=== PATIENT | male | born 1935 | race Caucasian/White ===

== ENCOUNTER 2019-05-24 19:45 | Observation (INO) | payer MEDICARE, BC, SELFPAY ==
--- NOTE | ~2019-05-24 | CT_ITS ---
EXAMINATION: CT abdomen pelvis wo con DATE: 05/24/2019 23:30 INDICATION: Generalized abdominal pain. TECHNIQUE: Computed tomography (CT) of the abdomen and pelvis was performed without intravenous contr ast. The dose-length product was 694.29 mGy-cm. Automated exposure control and iterative reconstructi on technique were employed. COMPARISON: CT dated 08/27/2018 FINDINGS: There is chronic right lower lobe atelectasis/scarring. Heart size normal. No significant p leural or pericardial effusion. Status post cholecystectomy. The spleen, pancreas, adrenal glands and liver are unremarkable for nonc ontrast CT. Status post cholecystectomy. There is a small 9 mm hyperdense cyst of the right kidney, i nferior pole. Small fat-containing umbilical hernia. Normal appendix. Nonobstructive bowel gas patter n. Bladder is unremarkable. No abnormal pelvic masses or fluid collections. Mild left ureterectasis, nonspecific. No obstructing stone or mass. Mild lumbar spondylosis. There is a vascular stent extendi ng from the distal abdominal aorta into the right common iliac artery and external iliac artery. Stab le appearance to solitary lead in the right pelvis without change. IMPRESSION: 1. No acute abdominal abnormality. No findings to account for patient's symptoms. Reviewed, dictated and finalized at location A. NING INSTRUCTOR IMPRESSION: 1. No acute abdominal abnormality. No findings to account for patient's symptom s.
--- NOTE | ~2019-05-24 | XR_ITS ---
XR chest 2V 05/24/2019 20:27 Indication: Low chest pain, shortness of breath and hypertension Procedure: 2 view chest Comparison: Comparison to multiple prior studies sequentially, with oldest reviewed study dated 06/09. Findings: Status post median sternotomy for CABG. Calcified granuloma left apex. Chronic scarring of the right lung base. No acute focal pneumonia, edema or effusion. No acute osseous abnormality. Impression: 1: No acute cardiopulmonary disease. Reviewed, dictated and finalized at location A. NICAL PROPOSAL WRITER Impression: 1: No acute cardiopulmonary disease.
[2019-05-24 20:00] VITALS: BP 154/75; PULSE 74; RESP 14; TEMP 36.7; O2SAT 97
--- NOTE | 2019-05-24 20:09 | ECG_ITS ---
Measurements Intervals [place] Rate: 74 P: 1 IA: 197 QRS: -29 QRSD: 138 T: 104 QT: 400 QTc: 446 Interpretive Statements SINUS RHYTHM VENTRICULAR PREMATURE COMPLEX LEFT BUNDLE BRANCH BLOCK LEFT VENTRICULAR HYPERTROPHY AND ST-T CHANGE ABNORMAL ECG Electronically Signed On 05-25-2019 7:13:31 SWATCH FOLDER by Herman Jaimes D.O.
[2019-05-24 20:32] LABS: Basophils Absolute Auto 0.02 K/mm3 (0.00-0.10); Basophils Percent Auto 0.3 % (0.0-1.0); Eosinophils Absolute Auto 0.04 K/mm3 (0.02-0.50); Eosinophils Percent Auto 0.6 % (1.0-6.0); Hematocrit 39.4 % (37.0-46.0); Hemoglobin 13.6 g/dL (12.4-15.3); Immature Granulocyte Absolute 0.04 K/mm3 (0.00-0.00); Immature Granulocyte Percent A 0.6 % (0.0-0.0); Lymphocytes Absolute Auto 1.65 K/mm3 (1.10-4.50); Lymphocytes Percent Auto 23.4 % (18.0-42.0); Mean Corpuscular HGB Conc 34.5 g/dL (32.0-36.0); Mean Corpuscular Hemoglobin 30.1 pg (27.0-31.0); Mean Corpuscular Volume 87.2 fL (78.0-102.0); Mean Platelet Volume 11.5 fl (8.7-11.0); Monocytes Absolute Auto 0.69 K/mm3 (0.10-0.90); Monocytes Percent Auto 9.8 % (2.0-11.0); Neutrophils Absolute Auto 4.6 K/mm3 (1.7-7.2); Neutrophils Percent Auto 65.3 % (50.0-70.0); Platelet Count Result 153 K/mm3 (150-420); Red Blood Count 4.52 M/mm3 (4.70-6.10); Red Cell Distribution Width 13.6 % (11.6-14.4); White Blood Count 7.1 K/mm3 (4.8-10.8)
[2019-05-24 20:45] LABS: Partial Thromboplastin Time 24.7 SEC (22.3-31.6); Prothrombin Time 10.7 Seconds (9.64-11.0)
[2019-05-24 20:49] LABS: Anion Gap 10.9 mmol/L (7-16); Blood Urea Nitrogen 29 mg/dL (7-18); Calcium 8.9 mg/dL (8.5-10.1); Carbon Dioxide 31 mmol/L (21-32); Chloride 100 mmol/L (98-108); Estimated CRCL calculation 38 ml/min; Estimated Glomerular Filt Rate 44; Glucose 135 mg/dL (70-99); Osmolality Calculated 293 mOsm/kg (285-295); Potassium 3.9 mmol/L (3.5-5.1); Sodium 138 mmol/L (136-145)
[2019-05-24 20:50] LABS: Troponin I < 0.02 ng/mL (0.00-0.056)
[2019-05-24 20:51] LABS: Amylase 54 U/L (25-115)
[2019-05-24 20:52] LABS: Lipase 151 U/L (73-393)
[2019-05-24 21:24] LABS: BNP 79.6 pg/mL (0-100)
--- NOTE | 2019-05-24 21:27 | ED.GENADULT ---
HPI - General Adult General Chief complaint: Chest Pain Stated complaint: sob, high blood pressure Time Seen by Provider: 05/24/19 20:20 Source: patient Mode of arrival: ambulatory Limitations: no limitations History of Present Illness HPI narrative: Celestino is a very pleasant 84-year-old male patient. He presents ambulatory to the emergency room. He states that he has a feeling of some pressure in the lower ribcage areas bilaterally. He has some epigastric discomfort also. This started at around 3:00 p.m. this afternoon. He also has some mild shortness of breath for 2 or 3 days. No history of cough. No history of fever. He denies any substernal chest pain. There is no arm pain back pain jaw pain. There is no history of arm tingling or numbness. He has history of coronary artery disease. He has had 4 vessel CABG in 1996 at [facility] In [place]. He had 2 stents done at the same hospital in 2018. He has had a right iliofemoral stent. His human services care specialist is Dr. Patel. his family physician used to be but since he left Celestino has not had any other physician. Celestino has had cholecystectomy. there is no history of any nausea or vomiting. No Urinary symptoms Celestino has had pneumonia in the past. at this particular time in the emergency room, Celestino says that he is feeling okay without any significant pain or shortness of breath. He is very pleasant. complaint: bilateral rib pain and epigastric pain Onset (ago): hour(s) ( Since 3:00 p.m.. See HPI narrative) Location: chest ( see HPI narrative) and abdomen ( Epigastric region) Radiation: non-radiation Severity: mild Quality: other ( pressure over the lateral ribs bilaterally. Use of says that he had similar pain with pneumonia) Pain Consistency: intermittent Relieving factors: other ( spontaneously better) Exacerbating factors: none Associated symptoms: other ( see HPI narrative) Treatments prior to arrival: none Related Data Allergies Allergy/AdvReac Type Severity Reaction Status Date / Time amoxicillin Allergy Intermediate Verified 10/02/16 14:22 prednisone Allergy Intermediate Verified 10/02/16 14:22 Radiographic Dyes/Iodine Allergy Intermediate itching, Uncoded 11/11/16 11:44 weakness of lower limbs Review of Systems Review of Systems: All systems reviewed & are unremarkable except as noted in HPI and below Constitutional: Constitutional: Reports as per HPI, Denies chills, Denies fever(s) and Denies weakness Eyes: Eyes: Reports as per HPI and Denies change in vision ENT: Reports system reviewed and no additional complaints, except as documented, Denies dysphagia, Denies vertigo, Denies dizziness, Denies nasal congestion and Denies sore throat Cardiovascular: Cardiovascular: Reports as per HPI, Reports chest pain, Denies rapid heart rate, Denies radiating jaw, neck or arm pain and Denies slow heart rate Respiratory: Respiratory: Reports as per HPI, Denies cough and Reports dyspnea Comments: see HPI narrative Gastrointestinal: Gastrointestinal: Reports no additional gastrointestinal complaints, Reports abdominal pain, Denies diarrhea, Denies nausea and Denies vomiting Genitourinary: Genitourinary: Reports as per HPI, Denies hematuria and Denies dysuria Musculoskeletal: Musculoskeletal: Reports no additional musculoskeletal complaints and Denies back pain Integumentary/Breasts: Skin/Breast: Reports system reviewed and no additional complaints, except as docu, Denies erythema and Denies rash Neurologic: Reports system reviewed and no additional complaints, except as documented, Denies vertigo, Denies dizziness, Denies syncope, Denies headache(s), Denies focal weakness, Denies numbness and Denies weakness Psychiatric: Psychiatric: Reports no additional psychiatric complaints, Denies anxiety and Denies depression Endocrine: Endocrine: Reports no additional endocrine complaints, Denies polydipsia and Denies polyuria Hematologic/Lymphatic
[2019-05-24 21:42] VITALS: BP 133/73; PULSE 67; RESP 20; O2SAT 95
--- NOTE | 2019-05-24 21:43 | PC.NURSE ---
Resting without change in condition. Awaiting dispo per ER physician.
[2019-05-24 22:23] VITALS: BP 164/88; PULSE 60; RESP 18; O2SAT 97
[2019-05-24 23:01] VITALS: BMI 30.2
--- NOTE | 2019-05-24 23:35 | PC.NURSE ---
Patient transported to x-ray for abdominal CT per w/c..
--- NOTE | 2019-05-24 23:50 | ADMGEN ---
This patient, Celestino Rodriguez, was admitted to 2nd Floor Room 204-2. Patient oriented to hospital policies and general routines including ID bracelet, bed and alarms, visiting hours, pain management, procedures, bathroom and other care routines, personal items, smoking policy, room service/diet, and visiting hours. Valuables list has been completed. Patient returned from x-ray in good spirits, denies chest pain or discomfort, stood to void into urinal with steady gait with no balance loss and returned to bed. Skin pink, warm, and dry with no edema and no signs of distress or pain. VSS. Telemetry: SR with rate 66-76 with occassional uniform PVCs; occassional missed beats per ausculation of apical pulse. Information on how to activate the Rapid Response Team has been discussed. Communication must be directed to patient in clear communication style facing him. He is [place] in both ears and did not bring his hearing aide. Patient/Family are encouraged to report perceived risks to care and to ask questions if they do not understand what they are told or what they should do.
[2019-05-24 23:59] VITALS: BP 161/61; PULSE 76; RESP 16; TEMP 35.8; O2SAT 98
[2019-05-25] VITALS (11 sets, daily range): BP systolic 118–152; BP diastolic 60–69; PULSE 49–79; RESP 16–18; TEMP 36.3–36.5; O2SAT 95–97
[2019-05-25 01:02] LABS: Troponin I < 0.02 ng/mL (0.00-0.056)
--- NOTE | 2019-05-25 02:15 | PC.NURSE ---
Lying in bed sleeping, skin pink, respirations easy/unlabored. No signs of chest pain or shortness of breath. No distress noted.
--- NOTE | 2019-05-25 03:55 | PC.NURSE ---
Awakens easily to name called; skin pink, warm, dry. Denies pain, chest pain or shortness of breath. VSS. No distress noted.
--- NOTE | 2019-05-25 04:55 | PC.NURSE ---
Patient sleeping, No signs of chest pain, shortness of breath, or discomfort. Telemetry: SB with rate: 58-60.
--- NOTE | 2019-05-25 05:23 | PC.NURSE ---
Alert/oriented x 4; Denies chest pain or discomfort. No shortness of breath. Skin pink, warm and dry. No distress noted.
[2019-05-25 07:04] LABS: Hematocrit 39.1 % (37.0-46.0); Hemoglobin 13.6 g/dL (12.4-15.3); Mean Corpuscular HGB Conc 34.8 g/dL (32.0-36.0); Mean Corpuscular Hemoglobin 29.8 pg (27.0-31.0); Mean Corpuscular Volume 85.7 fL (78.0-102.0); Mean Platelet Volume 11.4 fl (8.7-11.0); Platelet Count Result 153 K/mm3 (150-420); Red Blood Count 4.56 M/mm3 (4.70-6.10); Red Cell Distribution Width 13.4 % (11.6-14.4); White Blood Count 6.6 K/mm3 (4.8-10.8)
[2019-05-25 07:28] LABS: Alanine Aminotransferase 16 U/L (16-63); Albumin Level 3.4 g/dL (3.4-5.0); Alkaline Phosphatase 45 U/L (46-116); Amylase 46 U/L (25-115); Aspartate Amino Transferase 16 U/L (15-37); Bilirubin,Total 0.4 mg/dL (0.00-1.00); Blood Urea Nitrogen 26 mg/dL (7-18); Calcium 9.2 mg/dL (8.5-10.1); Carbon Dioxide 31 mmol/L (21-32); Chloride 105 mmol/L (98-108); Estimated CRCL calculation 53 ml/min; Estimated Glomerular Filt Rate > 60; Glucose 94 mg/dL (70-99); Osmolality Calculated 300 mOsm/kg (285-295); Sodium 143 mmol/L (136-145); Total Protein 6.5 g/dL (6.4-8.2)
[2019-05-25 07:30] LABS: Troponin I < 0.02 ng/mL (0.00-0.056)
[2019-05-25 07:31] LABS: Lipase 132 U/L (73-393)
[2019-05-25] MEDS: METOPROLOL SUCCINATE EXT REL 50 MG TABCR PO (08:33)
[2019-05-25] MEDS: TAMSULOSIN HCL 0.4 MG CAPSULE 0.8 MG PO (08:33)
[2019-05-25] MEDS: CLOPIDOGREL BISULFATE 75 MG TABLET PO (08:34)
[2019-05-25] MEDS: ROSUVASTATIN 10 MG TABLET 40 MG PO (08:34)
[2019-05-25] MEDS: ISOSORBIDE MONONITRATE 60 MG TAB.ER.24H PO (08:34)
[2019-05-25] MEDS: AMLODIPINE BESYLATE 2.5 MG TABLET PO (08:34)
[2019-05-25] MEDS: MIRTAZAPINE 15 MG TABLET PO (08:34)
[2019-05-25] MEDS: MONTELUKAST SODIUM 10 MG TABLET PO (08:34)
[2019-05-25] MEDS: GABAPENTIN 100 MG CAPSULE PO ×2 (08:34→12:01)
[2019-05-25] MEDS: CHLORTHALIDONE 25 MG TABLET PO (08:35)
[2019-05-25] MEDS: PANTOPRAZOLE 40 MG TABLET PO (08:40)
--- NOTE | 2019-05-25 10:04 | ECG_ITS ---
Measurements Intervals [place] Rate: 58 P: 0 LA: 213 QRS: 87 QRSD: 133 T: 68 QT: 427 QTc: 420 Interpretive Statements SINUS BRADYCARDIA WITH FIRST DEGREE AV BLOCK VENTRICULAR PREMATURE COMPLEX LEFT BUNDLE BRANCH BLOCK ABNORMAL ECG Electronically Signed On 05-25-2019 11:49:58 SANITATION MANAGER by Herman Jaimes D.O.
[2019-05-25] MEDS: SIMETHICONE 80 MG TAB.CHEW PO ×2 (11:07→12:01)
--- NOTE | 2019-05-25 11:20 | PC.NURSE ---
Patient walked x1 around floor with sba and gait belt. Gait steady, pt. showed no SOB. States he is feeling better. Pt. sittingu p at side of bed after walking, call light at side.
[2019-05-25] MEDS: SUCRALFATE SUSP 100 MG/ML 10 ML UDC 1000 MG PO (12:02)
[2019-05-25 13:40] LABS: Appearance Urine Clear (Clear); Bilirubin Urine Negative (Negative); Color Urine Yellow (Yellow); Glucose Urine UA Negative (Negative); Ketones Urine Negative (Negative); Leukocyte Esterase Ur Negative LEU/UL (Negative); Nitrate Urine Negative (Negative); Protein Urine Negative (Negative); Specific Grav Ur <= 1.005 (1.010-1.020); Urobilinogen Urine 0.2 mg/dL (0.2-1.0)
[2019-05-25 13:44] LABS: Add Urine Microscopic? YES; Blood Urine Trace-Intact (Negative); RBC Urine None seen /hpf (0-2); Squamous Epithelial Cell Urine Rare /hpf (Few); WBC Urine None seen /hpf (0-3)
[2019-05-25 13:45] LABS: Bacteria Urine None seen /hpf
--- NOTE | 2019-05-25 15:23 | PM.DS ---
DS: Diagnosis Discharge Diagnosis (1) Colicky epigastric pain: Code(s): R10.13 - Epigastric pain Status: Acute Assessment and Plan: IMPROVED. Stated that he was receiving bi-annual EGDs and colonoscopies every 3 years when he was living in [place], but since he moved to [place] three years ago, he wasn't able to get any scheduled. Described having a history similar to Sheppard's esophagus - but wasn't certain. Instructed him to Follow up with GI physician in [place], [place] - for possible EGD and Colonoscopy. Denies pain or bleeding with BMs and denies constipation, reports 2-[address] Abd Pelvis showed S/P Basilia with no stone remaining, vascular stent to abdominal aorta. Instructed him in discharge to F/U with his Official Court Reporter to F/u on Vascular stent. Continued his current home dose of plavix. His bilateral pedal pulses were equal and present 2+. H/H stable 13.6/39.1 Ordered Simethicone, Protonix BID, Carafate ACHS. Instructed him to increase ambulation and to Follow up with GI Dr. Wilkinson as soon as possible. (2) Chest pain: Qualifiers: Chest pain type: unspecified Qualified Code(s): R07.9 - Chest pain, unspecified Code(s): R07.9 - Chest pain, unspecified Status: Acute Assessment and Plan: Cardiac Versus GI pain source. Rule out Cardiac... Continuous Telemetry with no ectopy, no tachycardia, no arrhythmias. Cardiac and Respiratory exam with no concerns today, denies SOB overnight and today, on room air, denies chest pain/arm pain/jaw pain, numbness or tingling to any upper extremity. Troponin x 3 WNL, EKGs x 3 unchanged Sinus with PVCs, LBBB and LV hypertrophy. BNP 79.6. (3) Hypertension: Qualifiers: Hypertension type: essential hypertension Qualified Code(s): I10 - Essential (primary) hypertension Code(s): I10 - Essential (primary) hypertension Status: Acute Assessment and Plan: Chronic. Controlled with Medications. Now under control BPs 130/60 with HR 56-60s. Continue home regime of BP medications Norvasc daily, Plavix, Imdur, Metoprolol. He is to follow up with his PCP. DS: Summary Time Spent with Patient Time attestation: Total time spent providing and/or coordinating discharge services:>55 minutes Exam Const: General: no acute distress and alert; No diaphoretic Nutritional Appearance: well nourished Orientation/consciousness: patient oriented x3 Limitations: no limitations Other: Celestino is very pleasant and cooperative HENMT: Head: normal to inspection Ears: TM's normal bilaterally and EAC's normal General nose exam: Normal nares present Mouth: Yes moist mucous membranes Eyes: Conjunctivae: conjunctivae normal Pupils: Equal, round and reactive pupils present EOM: EOMs intact bilaterally Neck: Neck: normal visual inspection and no lymphadenopathy Chest: Chest palpation & inspection: normal inspection of the chest Resp: Effort & Inspection: normal respiratory effort Auscultation: clear to auscultation bilaterally Cardio: Rate: regular rate Rhythm: regular rhythm GI: Inspection: non-distended GI Palp: Yes Soft to palpation, No Firmness to palpation present (GI), Yes Tenderness to palpation present (GI) (discomfort or feeling of pressure worse after eating) and No Guarding due to palpation present (GI) Auscultation: normal bowel sounds : General: Yes no CVA tenderness Back/Spine/Pelvis: Back: no CVA tenderness Skin: General skin exam: normal color Rashes: no rashes Neuro: General: patient oriented x3, moves all extremities, no focal motor deficits and CN's II-XI intact bilaterally Cranial nerves: Yes Equal, round and reactive pupils present Speech: normal speech Gait exam (Neuro): Normal gait present Extrem: General: normal to inspection and no pedal edema Psych: Appearance: grossly normal and well kempt Mental Status: mental status grossly normal Affect: normal affect Attitude
--- NOTE | 2019-05-26 23:25 | PM.IMHP ---
H&P: HPI History of Present Illness Chief complaint: sob, high blood pressure,abd pain Narrative: 05-25-2019 at 11:00am Celestino Rodriguez is a 84 year old male whom presents ambulatory to the emergency room. He states that he has a feeling of some pressure in the lower ribcage areas bilaterally. He has some epigastric discomfort also. This started at around 3:00 p.m. this afternoon. He also has some mild shortness of breath for 2 or 3 days. No history of cough. No history of fever. He denies any substernal chest pain. There is no arm pain back pain jaw pain. There is no history of arm tingling or numbness. He has history of coronary artery disease. He has had 4 vessel CABG in 1996 at [facility] In [place]. He had 2 stents done at the same hospital in 2018. He has had a right iliofemoral stent. His editor sound is Dr. Patel. His family physician used to be but since he left Celestino has not had any other physician. Celestino has had cholecystectomy. There is no history of any nausea or vomiting. No Urinary symptoms. Celestino has had pneumonia in the past. at this particular time in the emergency room, Celestino says that he is feeling okay without any significant pain or shortness of breath. He is very pleasant. TODAY, he stated that he was wanting to go home but continued to have some minor bilateral rib pain or discomfort. His pain is bilateral rib pain and sub sternal/lower epigastric pain, non-radiation type pain, feeling mostly pressure over the lateral ribs bilaterally, that is worsenes by eating. He says that he had similar pain with pneumonia. Review of Systems Review of Systems: All systems reviewed & are unremarkable except as noted in HPI and below Constitutional: Constitutional: Reports as per HPI, Denies chills, Denies fever(s), Denies headache(s) and Denies weakness Eyes: Eyes: Reports as per HPI and Denies change in vision ENT: Reports system reviewed and no additional complaints, except as documented, Denies dysphagia, Denies vertigo, Denies dizziness, Denies headache(s), Denies nasal congestion, Denies sore throat, Denies throat swelling and Denies tongue swelling Cardiovascular: Cardiovascular: Reports as per HPI, Reports chest pain, Denies syncope, Denies rapid heart rate, Denies radiating jaw, neck or arm pain, Reports dyspnea and Denies slow heart rate Respiratory: Respiratory: Reports as per HPI, Denies cough and Reports dyspnea Gastrointestinal: Gastrointestinal: Reports no additional gastrointestinal complaints, Reports abdominal pain, Denies dysphagia, Denies diarrhea, Denies nausea and Denies vomiting Genitourinary: Genitourinary: Reports as per HPI, Denies hematuria and Denies dysuria Musculoskeletal: Musculoskeletal: Reports no additional musculoskeletal complaints, Denies back pain and Denies numbness Integumentary/Breasts: Skin/Breast: Reports system reviewed and no additional complaints, except as docu, Denies erythema and Denies rash Neurologic: Reports system reviewed and no additional complaints, except as documented, Denies vertigo, Denies dizziness, Denies syncope, Denies headache(s), Denies focal weakness, Denies numbness and Denies weakness Psychiatric: Psychiatric: Reports no additional psychiatric complaints, Denies anxiety and Denies depression Endocrine: Endocrine: Reports no additional endocrine complaints, Denies polydipsia and Denies polyuria Hematologic/Lymphatic: Hematologic/Lymphatic: Reports no additional hematologic/lymphatic complaints, Denies easy bleeding and Denies easy bruising Allergic/Immunologic: Allergic/Immunologic: Reports no additional allergic/immunologic complaints, Denies throat swelling and Denies tongue swelling PMFSH Past Medical History Medical History Colicky epigastric pain Femoral artery stenosis Heart disease Hypercholesterolemia Hypertension Surgical History Surgical History (Reviewed 05/26/19
--- NOTE | 2019-06-01 10:19 | PC.NURSE ---
Discharge call back [phone] No questions or concerns at this time. Patient verbilized understanding of discharge instructions both written and verbal. Patient on his way to see PCP today.
== END 2019-05-25 14:20 | disposition home or self-care (01) ==
LOC: CHSED 22:05 → CHS2ND 22:16
PROVIDERS: Nurse Practitioner; Admitting Provider Surgery; Emergency Provider Surgery; Visit Provider Surgery
DX: R10.13 Epigastric pain (principal); R07.9 Chest pain, unspecified; R06.02 Shortness of breath; I25.10 Atherosclerotic heart disease of native coronary artery without angina pectoris; Z95.1 Presence of aortocoronary bypass graft; E78.00 Pure hypercholesterolemia, unspecified; I10 Essential (primary) hypertension
CPT/HCPCS: 36415; 71046; 74176; 80048; 80053; 81001; 82150; 83690; 83880; 84484; 85025; 85027; 85610; 85730; 93005; 96372; 99285; A9270; G0378

== ENCOUNTER 2019-06-04 14:45 | Emergency (ER) | payer MEDICARE, BC, SELFPAY ==
[2019-06-04 15:00] VITALS: BP 151/81; PULSE 61; RESP 16; TEMP 36.4; O2SAT 97
[2019-06-04 16:48] LABS: Basophils Absolute Auto 0.02 K/mm3 (0.00-0.10); Basophils Percent Auto 0.2 % (0.0-1.0); Eosinophils Absolute Auto 0.02 K/mm3 (0.02-0.50); Eosinophils Percent Auto 0.2 % (1.0-6.0); Hematocrit 39.4 % (37.0-46.0); Hemoglobin 13.9 g/dL (12.4-15.3); Immature Granulocyte Absolute 0.05 K/mm3 (0.00-0.00); Immature Granulocyte Percent A 0.4 % (0.0-0.0); Lymphocytes Absolute Auto 0.83 K/mm3 (1.10-4.50); Lymphocytes Percent Auto 6.2 % (18.0-42.0); Mean Corpuscular HGB Conc 35.3 g/dL (32.0-36.0); Mean Corpuscular Hemoglobin 30.2 pg (27.0-31.0); Mean Corpuscular Volume 85.5 fL (78.0-102.0); Mean Platelet Volume 11.6 fl (8.7-11.0); Monocytes Absolute Auto 1.22 K/mm3 (0.10-0.90); Monocytes Percent Auto 9.2 % (2.0-11.0); Neutrophils Absolute Auto 11.2 K/mm3 (1.7-7.2); Neutrophils Percent Auto 83.8 % (50.0-70.0); Platelet Count Result 176 K/mm3 (150-420); Red Blood Count 4.61 M/mm3 (4.70-6.10); Red Cell Distribution Width 13.4 % (11.6-14.4); White Blood Count 13.3 K/mm3 (4.8-10.8)
--- NOTE | 2019-06-04 16:58 | ED.GENADULT ---
HPI - General Adult General Chief complaint: Nausea/Vomiting/Diarrhea Stated complaint: NAUSEA Time Seen by Provider: 06/04/19 16:25 Source: patient Mode of arrival: ambulatory Limitations: no limitations History of Present Illness HPI narrative: Celestino is a 84-year-old male patient. He presents here mainly with the complaint of nausea. He has no abdominal pain. He has no chest pain. He has no shortness of breath. He was seen here on the 4th of this month. He this week he has already seen his primary care physician which is . he saw his buggy runner Dr. Alas at [facility]. He says he was told that his 4th heart is concerned, everything is okay. He then also saw his plant breeder Dr. Merino in [place]. He is scheduled for an EGD on July 06, 2019. he developed nausea this afternoon. Just before he came to the ER, he took 1 Zofran. By the time he reached here, his nausea had completely subsided. He says that he has run out of Zofran. We will prescribe Zofran for him. However we will get some basic labs on him again today. Will get a CBC CMP amylase lipase. Onset (ago): minute(s) ( 30 minutes RESIDENTIAL ELECTRICIAN) Radiation: other ( please see details in HPI narrative. Celestino does not have any pain. He has mainly nausea) Severity: moderate Exacerbating factors: none Associated symptoms: other ( see HPI narrative) Treatments prior to arrival: other ( took Zofran. This took care of his symptoms.) Related Data Home Medications Medication Instructions Recorded Confirmed aspirin 81 mg tablet,delayed 81 mg PO DAILY 06/01/19 06/04/19 release chlorthalidone 25 mg tablet 25 mg PO DAILY 06/01/19 06/04/19 clopidogrel 75 mg tablet 75 mg PO DAILY 06/01/19 06/04/19 diclofenac sodium 1 % topical gel 4 gm TOPICAL QID 06/01/19 06/04/19 metoprolol succinate 25 mg 25 mg PO BID 06/01/19 06/04/19 tablet,extended release 24 hr mirtazapine 15 mg tablet 15 mg PO .Bedtime tablet 06/01/19 06/04/19 montelukast 10 mg tablet 10 mg PO DAILY 06/01/19 06/04/19 nitroglycerin 0.4 mg sublingual 0.4 mg SUBLINGUAL Q5M 06/01/19 06/04/19 tablet rosuvastatin 20 mg tablet 20 mg PO DAILY 06/01/19 06/04/19 tamsulosin 0.4 mg capsule 0.8 mg PO DAILY cap 06/01/19 06/04/19 Allergies Allergy/AdvReac Type Severity Reaction Status Date / Time Penicillins Allergy Unknown unknown Verified 06/01/19 07:46 Iodine and Iodide Containing AdvReac Intermediate Itching Verified 06/01/19 07:46 Produc prednisone AdvReac Unknown Unknown Verified 06/01/19 07:46 Review of Systems Review of Systems: All systems reviewed & are unremarkable except as noted in HPI and below Constitutional: Constitutional: Reports as per HPI, Denies chills and Denies fever(s) Eyes: Eyes: Reports as per HPI, Reports no additional eye complaints and Denies change in vision ENT: Reports system reviewed and no additional complaints, except as documented, Denies dysphagia, Denies vertigo, Denies dizziness, Denies nasal congestion and Denies sore throat Cardiovascular: Cardiovascular: Reports as per HPI, Reports no additional cardiovascular complaints, Denies chest pain and Denies radiating jaw, neck or arm pain Respiratory: Respiratory: Reports as per HPI, Reports no additional respiratory complaints, Denies chest congestion, Denies cough, Denies dyspnea and Denies wheezing Gastrointestinal: Gastrointestinal: Reports as per HPI, Reports no additional gastrointestinal complaints and Reports nausea Genitourinary: Genitourinary: Reports no additional male genitourinary complaints, Denies hematuria, Denies oliguria and Denies dysuria Musculoskeletal: Musculoskeletal: Reports no additional musculoskeletal complaints and Denies back pain Integumentary/Breasts: Skin/Breast: Reports system reviewed and no additional complaints, except as docu, Denies erythema and Denies rash Neurologic: Reports system reviewed and no additional complaints, except as documented, Denies vertigo, Jose
[2019-06-04 17:01] LABS: Alanine Aminotransferase 20 U/L (16-63); Albumin Level 3.5 g/dL (3.4-5.0); Alkaline Phosphatase 58 U/L (46-116); Anion Gap 11.4 mmol/L (7-16); Aspartate Amino Transferase 19 U/L (15-37); Bilirubin,Total 0.5 mg/dL (0.00-1.00); Blood Urea Nitrogen 17 mg/dL (7-18); Calcium 8.3 mg/dL (8.5-10.1); Carbon Dioxide 28 mmol/L (21-32); Chloride 102 mmol/L (98-108); Estimated Glomerular Filt Rate 60; Glucose 99 mg/dL (70-99); Osmolality Calculated 287 mOsm/kg (285-295); Potassium 3.4 mmol/L (3.5-5.1); Sodium 138 mmol/L (136-145); Total Protein 6.6 g/dL (6.4-8.2)
[2019-06-04 17:32] LABS: Amylase 41 U/L (25-115); Lipase 94 U/L (73-393)
[2019-06-04 17:42] VITALS: BP 122/65
== END 2019-06-04 17:43 | disposition home or self-care (01) ==
LOC: CHSED 15:49
PROVIDERS: Emergency Provider Surgery; PCP Family Medicine
DX: R11.0 Nausea (principal); K21.9 Gastro-esophageal reflux disease without esophagitis; I48.91 Unspecified atrial fibrillation; I25.10 Atherosclerotic heart disease of native coronary artery without angina pectoris; J44.9 Chronic obstructive pulmonary disease, unspecified; E78.5 Hyperlipidemia, unspecified; I10 Essential (primary) hypertension; Z87.891 Personal history of nicotine dependence
CPT/HCPCS: 36415; 80053; 82150; 83690; 85025; 99283

== ENCOUNTER 2019-06-08 10:45 | Outpatient (CLI) | payer MEDICARE, BC, SELFPAY | END 2019-06-08 10:46 | disposition home or self-care (01) | LOC: CHSCARD 10:47 | PROVIDERS: PCP Family Medicine; Visit Provider Internal Medicine Pulmonary Disease | DX: J44.9 Chronic obstructive pulmonary disease, unspecified (principal) | CPT/HCPCS: 94060; 94726; 94729; 95012 ==

== ENCOUNTER 2019-06-09 10:33 | Emergency (ER) | payer MEDICARE, BC, SELFPAY ==
--- NOTE | 2019-06-09 10:55 | ED.MALEGU ---
HPI - Male Genitourinary General Chief complaint: Urogenital-Male Stated complaint: urinary retention Time Seen by Provider: 06/09/19 10:55 Source: patient and RN notes reviewed Mode of arrival: ambulatory Limitations: no limitations History of Present Illness MD Complaint: dysuria Onset (ago): day(s) (3) Duration: intermittent Severity: moderate Quality: burning Relieving factors: none Exacerbating factors: urination Associated symptoms: Reports urinary retention (Dribbling) and incontinence Related Data Sexually active: No Home Medications Medication Instructions Recorded Confirmed amlodipine 2.5 mg PO DAILY 05/24/19 06/09/19 chlorthalidone 25 mg PO DAILY 05/24/19 06/09/19 clopidogrel 75 mg PO DAILY 05/24/19 06/09/19 diclofenac sodium 1 % TOPICAL BID 05/24/19 06/09/19 gabapentin 100 mg PO TID 05/24/19 06/09/19 isosorbide mononitrate 60 mg PO DAILY 05/24/19 06/09/19 metoprolol succinate 50 mg PO DAILY 05/24/19 06/09/19 mirtazapine 15 mg PO DAILY 05/24/19 06/09/19 montelukast 10 mg PO DAILY 05/24/19 06/09/19 nitroglycerin 0.4 mg SUBLINGUAL Q5MIN PRN 05/24/19 06/09/19 olopatadine 1 drp OPHTHALMIC (EYE) DAILY 05/24/19 06/09/19 omeprazole 40 mg PO DAILY 05/24/19 06/09/19 potassium chloride 20 meq PO DAILY 05/24/19 06/09/19 rosuvastatin 40 mg PO DAILY 05/24/19 06/09/19 tamsulosin 0.8 mg PO DAILY 05/24/19 06/09/19 Allergies Allergy/AdvReac Type Severity Reaction Status Date / Time amoxicillin Allergy Intermediate Verified 10/02/16 14:22 prednisone Allergy Intermediate Verified 10/02/16 14:22 Radiographic Dyes/Iodine Allergy Intermediate itching, Uncoded 11/11/16 11:44 weakness of lower limbs Review of Systems Constitutional: Constitutional: Reports chills and Reports fever(s) (Subjective) Eyes: Eyes: Reports no additional eye complaints Cardiovascular: Cardiovascular: Reports no additional cardiovascular complaints Respiratory: Respiratory: Reports no additional respiratory complaints Gastrointestinal: Gastrointestinal: Reports no additional gastrointestinal complaints Genitourinary: Genitourinary: Reports as per HPI Musculoskeletal: Musculoskeletal: Reports no additional musculoskeletal complaints Neurologic: Reports as per HPI PMFSH Past Medical History Medical History Allergic rhinitis Atrial fibrillation BPH (benign prostatic hyperplasia) CAD (coronary artery disease) Colicky epigastric pain Femoral artery stenosis LIV (generalized anxiety disorder) GERD (gastroesophageal reflux disease) Heart disease Hypercholesterolemia Hypertension IBS (irritable bowel syndrome) Osteoarthritis Overweight Surgical History Surgical History Hx of cholecystectomy S/P CABG x 4 Family History Family History Mother , Age 80 Family history of coronary artery disease Father , Age 85. Cause of Pneumonia. No problems noted. Social History Social History Smoking status: Never smoker Additional smoking assessment comments: Quit 1988 Alcohol intake: never Substance use: never Additional living arrangements comments: . 4 Adult Children. 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 Gender identity (if verbalized by the patient): Male Spiritual care concerns: No Agree to blood products: Yes Exam Const: General: healthy appearing, no acute distress and alert Nutritional Appearance: well nourished Orientation/consciousness: patient oriented x3 Limitations: no limitations HENMT: Head: normal to inspection General nose exam: Normal external nose present Face and sinus: normal facial exam Mouth: Yes moist mucous membranes Eyes: Conjunctivae: conjunctivae normal Pupils:
[2019-06-09 11:23] VITALS: BP 102/66; PULSE 72; RESP 14; TEMP 37.4; O2SAT 95
[2019-06-09 11:26] LABS: Add Urine Microscopic? YES; Appearance Urine Cloudy (Clear); Basophils Absolute Auto 0.02 K/mm3 (0.00-0.10); Basophils Percent Auto 0.1 % (0.0-1.0); Bilirubin Urine 1+ (Negative); Blood Urine 3+ (Negative); Color Urine Yellow (Yellow); Glucose Urine UA Negative (Negative); Hematocrit 39.9 % (37.0-46.0); Hemoglobin 14.1 g/dL (12.4-15.3); Immature Granulocyte Absolute 0.06 K/mm3 (0.00-0.00); Immature Granulocyte Percent A 0.4 % (0.0-0.0); Ketones Urine Trace (Negative); Leukocyte Esterase Ur 2+ LEU/UL (Negative); Lymphocytes Absolute Auto 0.83 K/mm3 (1.10-4.50); Lymphocytes Percent Auto 5.2 % (18.0-42.0); Mean Corpuscular HGB Conc 35.3 g/dL (32.0-36.0); Mean Corpuscular Hemoglobin 30.1 pg (27.0-31.0); Mean Corpuscular Volume 85.1 fL (78.0-102.0); Mean Platelet Volume 11.4 fl (8.7-11.0); Monocytes Absolute Auto 1.77 K/mm3 (0.10-0.90); Monocytes Percent Auto 11.1 % (2.0-11.0); Neutrophils Absolute Auto 13.3 K/mm3 (1.7-7.2); Neutrophils Percent Auto 83.2 % (50.0-70.0); Nitrate Urine Negative (Negative); Platelet Count Result 163 K/mm3 (150-420); Protein Urine 1+ (Negative); Red Blood Count 4.69 M/mm3 (4.70-6.10); Red Cell Distribution Width 13.4 % (11.6-14.4); Specific Grav Ur 1.015 (1.010-1.020); White Blood Count 15.9 K/mm3 (4.8-10.8)
[2019-06-09 11:36] LABS: Bacteria Urine 4+ /hpf; Squamous Epithelial Cell Urine Rare /hpf (Few); WBC Urine >75 /hpf (0-3)
[2019-06-09 11:41] LABS: Alanine Aminotransferase 16 U/L (16-63); Albumin Level 3.7 g/dL (3.4-5.0); Alkaline Phosphatase 55 U/L (46-116); Anion Gap 12.6 mmol/L (7-16); Aspartate Amino Transferase 15 U/L (15-37); Bilirubin,Total 1.1 mg/dL (0.00-1.00); Blood Urea Nitrogen 15 mg/dL (7-18); CRP 3.4 mg/dL (0.0-0.9); Calcium 8.6 mg/dL (8.5-10.1); Carbon Dioxide 30 mmol/L (21-32); Chloride 100 mmol/L (98-108); Estimated CRCL calculation 47 ml/min; Estimated Glomerular Filt Rate 55; Glucose 115 mg/dL (70-99); Osmolality Calculated 289 mOsm/kg (285-295); Potassium 3.6 mmol/L (3.5-5.1); Sodium 139 mmol/L (136-145); Total Protein 7.3 g/dL (6.4-8.2)
--- NOTE | 2019-06-09 12:02 | PC.NURSE ---
POST VOID BLADDER SCAN 45 ML
[2019-06-09] MEDS: cefTRIAXone 1 GM VIAL IM (12:54)
[2019-06-09] MEDS: LIDOCAINE HCL 1% LOCAL INJ 20 ML VIAL (12:54)
[2019-06-09 12:58] VITALS: RESP 14; O2SAT 95
== END 2019-06-09 13:03 | disposition home or self-care (01) ==
PROVIDERS: Emergency Provider Emergency Medicine; PCP Family Medicine
DX: N39.0 Urinary tract infection, site not specified (principal); I48.91 Unspecified atrial fibrillation; K21.9 Gastro-esophageal reflux disease without esophagitis; E78.00 Pure hypercholesterolemia, unspecified; I10 Essential (primary) hypertension
CPT/HCPCS: 36415; 80053; 81001; 85025; 86140; 87040; 87077; 87086; 87088; 87186; 96372; 99283; J0696

== ENCOUNTER 2019-06-16 10:52 | Outpatient (CLI) | payer MEDICARE, SELFPAY ==
[2019-06-16 11:07] LABS: Add Urine Microscopic? NO; Appearance Urine Clear (Clear); Bilirubin Urine Negative (Negative); Blood Urine Negative (Negative); Color Urine Yellow (Yellow); Glucose Urine UA Negative (Negative); Ketones Urine Negative (Negative); Leukocyte Esterase Ur Negative (Negative); Nitrate Urine Negative (Negative); Protein Urine Negative (Negative); Specific Grav Ur 1.015 (1.010-1.020); Urobilinogen Urine 0.2 mg/dL (0.2-1.0)
== END 2019-06-16 10:53 | disposition home or self-care (01) ==
PROVIDERS: PCP Family Medicine; Visit Provider Family Medicine
DX: N39.0 Urinary tract infection, site not specified (principal)
CPT/HCPCS: 81003; 87086

== ENCOUNTER 2020-12-26 11:29 | Outpatient (CLI) | payer MEDICARE, SELFPAY ==
[2020-12-26 12:24] LABS: Prostate Specific Antigen 3.2 ng/mL (< OR = 4.0)
== END 2020-12-26 11:30 | disposition home or self-care (01) ==
LOC: CHSLAB 11:31
PROVIDERS: PCP Family Medicine; Visit Provider Family Medicine
DX: R53.1 Weakness (principal); N40.0 Benign prostatic hyperplasia without lower urinary tract symptoms; Z12.5 Encounter for screening for malignant neoplasm of prostate
CPT/HCPCS: 36415; 84153; G0103

== ENCOUNTER 2021-01-11 15:36 | Outpatient (NON) | payer MEDICARE, SELFPAY | END 2021-01-11 15:37 | disposition home or self-care (01) | LOC: CHSLAB 15:37 | PROVIDERS: Visit Provider Family Medicine | DX: R30.9 Painful micturition, unspecified (principal) | CPT/HCPCS: 87077; 87086; 87186 ==

== ENCOUNTER 2021-01-29 10:54 | Emergency (ER) | payer MEDICARE, BC, SELFPAY ==
--- NOTE | ~2021-01-29 | XR_ITS ---
EXAMINATION: XR chest 2V DATE: 01/29/2021 13:30 INDICATION: Fever. Generalized weakness. TECHNIQUE: Frontal and lateral views of the chest were obtained. COMPARISON: Chest 2 views 05/24/2019, CT abdomen and pelvis 05/24/2019 FINDINGS: A calcified left lung nodule is consistent with old granulomatous disease. There is mild at electasis in right mid and lower lung zones and left lower lung zone. No pleural effusion or pneumoth orax. The heart size is normal. Median sternotomy wires and mediastinal surgical clips are seen, like ly from prior coronary artery bypass grafting. Surgical clips in the right upper quadrant are likely from cholecystectomy. IMPRESSION: 1. Mild atelectasis in right mid and lower lung zones and left lower lung zone. Reviewed, dictated and finalized at location A.
--- NOTE | ~2021-01-29 | CT_ITS ---
EXAMINATION: CT brain wo con DATE: 01/29/2021 13:30 INDICATION: Dizziness. Generalized weakness. TECHNIQUE: Computed tomography (CT) of the head was performed without intravenous contrast. The mA wa s adjusted according to patient size. Iterative reconstruction technique was employed. Exam dose: 60 5.33 mGy-cm total exam DLP. COMPARISON: 07/07/2017 CT head FINDINGS: There are prominent bilateral vertebral artery calcifications as well as basilar artery and very prominent bilateral carotid siphon and supraclinoid internal carotid artery calcification. Minimal bilateral basal ganglia calcification. There is nonspecific diminished attenuation of the cerebral white matter, likely due to chronic small vessel ischemic changes. Chronic lacunar infarct is noted in the region of the anterior limb of the left internal capsule, not significantly changed since 07/07/2017. No intracranial mass lesion or hemorrhage or recent cerebrovascular accident is detected. No midline shift or mass effect effect. No subdural or epidural hematoma is detected. No fracture or bone destruction of the cranial vault. The mastoid air cells and included paranasal sinuses are normally developed and aerated. IMPRESSION: Cerebral atherosclerosis and chronic vessel ischemic changes of the cerebral white matte r Chronic lacunar infarct in the region of the anterior limb of left internal capsule, not significantl y changed since 07/07/2017 No acute intracranial finding Reviewed, dictated and finalized at Location A. Reviewed, dictated and finalized at location A. IMPRESSION: Cerebral atherosclerosis and chronic vessel ischemic changes of th e cerebral white matter Chronic lacunar infarct in the region of the anterior limb of left internal cap delia, not significantly changed since 07/07/2017 No acute intracranial finding
[2021-01-29 11:05] VITALS: BP 128/58; PULSE 84; RESP 18; TEMP 37.7; O2SAT 97
--- NOTE | 2021-01-29 11:07 | ED.FEVER ---
HPI - Fever General Chief Complaint: Fever Stated Complaint: ambulance Source: patient and RN notes reviewed Mode of arrival: EMS Limitations: no limitations History of Present Illness HPI Narrative: patient states he started 2 days ago having some chills. He has recently been treated for a urinary tract infection initially with Bactrim DS which did not seem to be helping so he was switched to Macrobid b.i.d. he states he is on a 10 day course. Last night he had a fever to 101.0, this morning he had some chills and while he was in the shower he fell against the wall and slid himself down to the bottom of the tub, he did not have any injury. However he did call an ambulance because he was feeling weak and having chills. He denies any cough. He has been fully vaccinated for COVID and does not interact with the public at this time. He also states he does not feel quite right , he has also been feeling dizzy. Denies any nausea vomiting diarrhea. MD elicited complaint: fever and malaise Onset (ago): day(s) (2) Measured temperature: 101 C (last night) Context: recent antibiotic use Exacerbating factors: nothing Relieving factors: nothing Associated symptoms: chills Treatments prior to arrival fever: none Related Data Home Medications Medication Instructions Recorded Confirmed amlodipine 2.5 mg PO PRN PRN 05/24/19 01/29/21 metoprolol succinate 25 mg PO BID 05/24/19 01/29/21 olopatadine 1 drp OPHTHALMIC (EYE) DAILY 05/24/19 01/29/21 omeprazole 40 mg PO DAILY 05/24/19 01/29/21 potassium chloride 20 meq PO DAILY 05/24/19 01/29/21 aspirin 81 mg tablet,delayed 81 mg PO DAILY 06/01/19 01/29/21 release chlorthalidone 25 mg PO DAILY 01/29/21 01/29/21 isosorbide mononitrate 60 mg PO DAILY 01/29/21 01/29/21 mirtazapine 15 mg PO DAILY 01/29/21 01/29/21 rosuvastatin 40 mg PO DAILY 01/29/21 01/29/21 tamsulosin 0.4 mg PO DAILY 01/29/21 01/29/21 Allergies Allergy/AdvReac Type Severity Reaction Status Date / Time amoxicillin Allergy Intermediate Unknown Verified 01/11/21 14:37 Penicillins Allergy Unknown unknown Verified 01/11/21 14:37 Iodine and Iodide Containing AdvReac Intermediate Itching Verified 01/11/21 14:37 Produc prednisone AdvReac Unknown Unknown Verified 01/11/21 14:37 Radiographic Dyes/Iodine Allergy Intermediate itching, Uncoded 07/07/20 11:41 weakness of lower limbs Review of Systems Review of Systems: All systems reviewed & are unremarkable except as noted in HPI and below Constitutional: Constitutional: Reports chills and Reports fever(s) ENT: Denies sore throat Cardiovascular: Cardiovascular: Denies chest pain Respiratory: Respiratory: Denies cough, Denies dyspnea and Denies wheezing Gastrointestinal: Gastrointestinal: Denies nausea and Denies vomiting Genitourinary: Genitourinary: Denies dysuria and Denies urinary frequency [facility] Past Medical History Medical History Allergic rhinitis Atrial fibrillation CAD (coronary artery disease) COPD (chronic obstructive pulmonary disease) Femoral artery stenosis LIV (generalized anxiety disorder) GERD (gastroesophageal reflux disease) Heart disease Hematuria Hyperlipidemia Hypertension IBS (irritable bowel syndrome) Myocardial infarct 1988 Osteoarthritis Overweight Surgical History Surgical History History of cholecystectomy History of quadruple bypass Hx of cholecystectomy S/P CABG x 4 Family History Family History Mother , Age 80 Heart disease Father , Age 85. Cause of Pneumonia. No problems noted. Mother , Age 80 Family history of coronary artery disease Father , Age 85. Cause of Pneumonia. No problems noted. Social History Social History Smoking s
[2021-01-29 11:34] LABS: Basophils Absolute Auto 0.03 K/mm3 (0.00-0.10); Basophils Percent Auto 0.3 % (0.0-1.0); Eosinophils Absolute Auto 0.19 K/mm3 (0.02-0.50); Eosinophils Percent Auto 1.7 % (1.0-6.0); Hematocrit 44.5 % (37.0-46.0); Hemoglobin 15.2 g/dL (12.4-15.3); Immature Granulocyte Absolute 0.02 K/mm3 (0.00-0.00); Immature Granulocyte Percent A 0.2 % (0.0-0.0); Lymphocytes Absolute Auto 0.45 K/mm3 (1.10-4.50); Lymphocytes Percent Auto 4.1 % (18.0-42.0); Mean Corpuscular HGB Conc 34.2 g/dL (32.0-36.0); Mean Corpuscular Hemoglobin 28.4 pg (27.0-31.0); Mean Corpuscular Volume 83.2 fL (78.0-102.0); Mean Platelet Volume 11.6 fl (8.7-11.0); Monocytes Absolute Auto 1.21 K/mm3 (0.10-0.90); Neutrophils Absolute Auto 9.1 K/mm3 (1.7-7.2); Neutrophils Percent Auto 82.7 % (50.0-70.0); Platelet Count Result 142 K/mm3 (150-420); Red Blood Count 5.35 M/mm3 (4.70-6.10); Red Cell Distribution Width 14.4 % (11.6-14.4)
[2021-01-29 11:59] LABS: Alanine Aminotransferase 35 U/L (16-63); Albumin Level 3.9 g/dL (3.4-5.0); Alkaline Phosphatase 61 U/L (46-116); Anion Gap 13 mmol/L (8-16); Aspartate Amino Transferase 32 U/L (15-37); Bilirubin,Total 0.9 mg/dL (0.00-1.00); Blood Urea Nitrogen 27 mg/dL (7-18); Calcium 9.2 mg/dL (8.5-10.1); Carbon Dioxide 29 mmol/L (21-32); Chloride 99 mmol/L (98-108); Estimated CRCL calculation 37 ml/min; Estimated Glomerular Filt Rate 51; Glucose 123 mg/dL (70-99); Osmolality Calculated 298 mOsm/kg (285-295); Potassium 3.4 mmol/L (3.5-5.1); Sodium 141 mmol/L (136-145); Thyroid Stimulating Hormone 1.88 uIU/mL (0.36-3.74); Total Protein 7.1 g/dL (6.4-8.2)
[2021-01-29 12:04] LABS: CRP 1.3 mg/dL (0.0-0.9)
[2021-01-29 12:06] LABS: Lactic Acid Reflex 1.5 mmol/L (0.4-2.0)
[2021-01-29 12:37] VITALS: BP 110/62; PULSE 76; RESP 16; O2SAT 96
--- NOTE | 2021-01-29 12:37 | PC.NURSE ---
Urine given to lab.
[2021-01-29 12:46] LABS: Add Urine Microscopic? YES; Bilirubin Urine 1+ (Negative); Blood Urine 1+ (Negative); Color Urine Yellow (Yellow); Glucose Urine UA Negative (Negative); Ketones Urine 2+ (Negative); Leukocyte Esterase Ur Negative LEU/UL (Negative); Nitrate Urine Negative (Negative); Protein Urine 2+ (Negative); Specific Grav Ur >= 1.030 (1.010-1.020); Urobilinogen Urine 0.2 mg/dL (0.2-1.0); pH Urine 5.5 (5.0-8.0)
[2021-01-29 12:52] LABS: Appearance Urine Sl Cloudy (Clear); Bacteria Urine 1+ /hpf; Squamous Epithelial Cell Urine Few /hpf (Few); WBC Urine None seen /hpf (0-3)
[2021-01-29 14:40] VITALS: BP 118/62; PULSE 84; RESP 16; O2SAT 95
== END 2021-01-29 14:41 | disposition home or self-care (01) ==
PROVIDERS: Emergency Provider Emergency Medicine; PCP Family Medicine
DX: R50.9 Fever, unspecified (principal); B34.9 Viral infection, unspecified; N39.0 Urinary tract infection, site not specified; I48.20 Chronic atrial fibrillation, unspecified; I25.10 Atherosclerotic heart disease of native coronary artery without angina pectoris; I10 Essential (primary) hypertension; J44.9 Chronic obstructive pulmonary disease, unspecified; E78.5 Hyperlipidemia, unspecified; K58.9 Irritable bowel syndrome, unspecified; K21.9 Gastro-esophageal reflux disease without esophagitis; M19.90 Unspecified osteoarthritis, unspecified site; F41.1 Generalized anxiety disorder; Z90.49 Acquired absence of other specified parts of digestive tract; Z95.1 Presence of aortocoronary bypass graft
CPT/HCPCS: 36415; 70450; 71046; 80053; 81001; 83605; 84443; 85025; 86140; 87040; 96365; 99283; 99284; J0696

== ENCOUNTER 2021-01-31 11:56 | Outpatient (CLI) | payer MEDICARE, BC, SELFPAY ==
--- NOTE | ~2021-01-31 | XR_ITS ---
XR toe 1st RT min 2V DATE: 01/31/2021 12:24 INDICATION: Fall, right toe injury, pain TECHNIQUE: 4 views COMPARISON: None FINDINGS: There is a virtually nondisplaced comminuted intra-articular fracture of the base of metaph yseal area of the distal phalanx of the first digit. Diffuse osteopenia. IMPRESSION: Virtually nondisplaced comminuted intra-articular fracture of the base and metaphyseal ar ea of the distal phalanx Reviewed, dictated and finalized at location A. IMPRESSION: Virtually nondisplaced comminuted intra-articular fracture of the b ase and metaphyseal area of the distal phalanx
== END 2021-01-31 11:57 | disposition home or self-care (01) ==
LOC: CHSIMG 11:59
PROVIDERS: PCP Family Medicine; Visit Provider Family Medicine
DX: M79.676 Pain in unspecified toe(s) (principal); S92.424A Nondisplaced fracture of distal phalanx of right great toe, initial encounter for closed fracture; W19.XXXA Unspecified fall, initial encounter
CPT/HCPCS: 73660

== ENCOUNTER 2021-02-05 13:33 | Outpatient (CLI) | payer MEDICARE, SELFPAY ==
[2021-02-05 13:44] LABS: Hematocrit 41.6 % (37.0-46.0); Hemoglobin 14.1 g/dL (12.4-15.3); Mean Corpuscular HGB Conc 33.9 g/dL (32.0-36.0); Mean Corpuscular Hemoglobin 28.5 pg (27.0-31.0); Mean Corpuscular Volume 84.2 fL (78.0-102.0); Mean Platelet Volume 10.7 fl (8.7-11.0); Platelet Count Result 222 K/mm3 (150-420); Red Blood Count 4.94 M/mm3 (4.70-6.10); Red Cell Distribution Width 14.1 % (11.6-14.4); White Blood Count 8.4 K/mm3 (4.8-10.8)
[2021-02-05 14:50] LABS: Erythrocyte Sedimentation Rate 35 mm/hr (0-20)
[2021-02-05 15:18] LABS: Alanine Aminotransferase 34 U/L (16-63); Albumin Level 3.7 g/dL (3.4-5.0); Alkaline Phosphatase 64 U/L (46-116); Anion Gap 7 mmol/L (8-16); Aspartate Amino Transferase 24 U/L (15-37); Bilirubin,Total 0.4 mg/dL (0.00-1.00); Blood Urea Nitrogen 27 mg/dL (7-18); CRP < 0.5 mg/dL (0.0-0.9); Calcium 8.6 mg/dL (8.5-10.1); Carbon Dioxide 35 mmol/L (21-32); Chloride 99 mmol/L (98-108); Estimated Glomerular Filt Rate 59; Folic Acid 8.2 ng/mL (8.6->20); Glucose 104 mg/dL (70-99); Osmolality Calculated 297 mOsm/kg (285-295); Potassium 4.3 mmol/L (3.5-5.1); Sodium 141 mmol/L (136-145); Total Protein 6.8 g/dL (6.4-8.2); Vitamin B12 380 pg/mL (193-986)
[2021-02-05 15:30] LABS: Thyroid Stimulating Hormone Reflex 1.74 u/IU/mL (0.36-3.74)
[2021-02-10] LABS: ANA Cascade Screen Negative (Negative)
== END 2021-02-05 13:34 | disposition home or self-care (01) ==
LOC: CHSLAB 13:35
PROVIDERS: PCP Family Medicine; Visit Provider Family Medicine
DX: R53.1 Weakness (principal); E11.9 Type 2 diabetes mellitus without complications; E53.8 Deficiency of other specified B group vitamins
CPT/HCPCS: 36415; 80053; 82607; 82746; 84443; 85027; 85652; 86038; 86140

== ENCOUNTER 2021-02-26 22:38 | Observation (INO) | payer MEDICARE, BC, SELFPAY ==
--- NOTE | ~2021-02-26 | XR_ITS ---
EXAMINATION: XR chest 2V DATE: 02/27/2021 08:29 INDICATION: Elevated BNP TECHNIQUE: PA and lateral views of the chest are obtained. COMPARISON: 01/29/2021 FINDINGS: The lungs are free of acute opacities. There is chronic atelectasis or scarring in the righ t midlung zone. There is no pleural effusion or pneumothorax. The cardiomediastinal silhouette is nor mal. There is mild thoracic spondylosis. Median sternotomy wires and mediastinal surgical clips are s een, likely from prior coronary artery bypass grafting. IMPRESSION: 1. No acute cardiopulmonary abnormality. Reviewed, dictated and finalized at location B.
[2021-02-26 22:45] VITALS: BP 210/79; PULSE 60; RESP 20; TEMP 36.2; O2SAT 98
--- NOTE | 2021-02-26 23:00 | ECG_ITS ---
Measurements Intervals Zoe Rate: 51 P: 54 RI: 243 QRS: -30 QRSD: 141 T: 62 QT: 459 QTc: 423 Interpretive Statements SINUS BRADYCARDIA WITH FIRST DEGREE AV BLOCK LEFT BUNDLE BRANCH BLOCK ABNORMAL ECG Electronically Signed On 02-27-2021 8:09:24 CDT by Herman Jaimes D.O.
--- NOTE | 2021-02-26 23:16 | ED.GENADULT ---
HPI - General Adult General Chief complaint: Unspecified Stated complaint: high blood pressure Source: patient Mode of arrival: ambulatory Limitations: no limitations History of Present Illness HPI narrative: This is a 85-year-old gentleman with a history of hypertension coronary artery disease presents with some elevated blood pressure saw his primary care physician today and his blood pressure systolic was in the 150s, but throughout the day he has been checking his blood pressure and on last reading this evening was systolic to 210, patient denies having any symptoms, no dizziness no headache no blurry vision no nausea vomiting no chest pain or tightness in his chest no shortness of breath. Patient did take nitro earlier an attempt to bring his blood pressure down with no relief. Onset (ago): hour(s) Related Data Home Medications Medication Instructions Recorded Confirmed amlodipine 2.5 mg PO PRN PRN 05/24/19 02/26/21 metoprolol succinate 25 mg PO BID 05/24/19 02/26/21 olopatadine 1 drp OPHTHALMIC (EYE) DAILY 05/24/19 02/26/21 omeprazole 40 mg PO DAILY 05/24/19 02/26/21 potassium chloride 20 meq PO DAILY 05/24/19 02/26/21 aspirin 81 mg tablet,delayed 81 mg PO DAILY 06/01/19 02/26/21 release rosuvastatin 20 mg PO DAILY 01/29/21 02/26/21 tamsulosin 0.4 mg PO DAILY 01/29/21 02/26/21 Allergies Allergy/AdvReac Type Severity Reaction Status Date / Time amoxicillin Allergy Intermediate Unknown Verified 02/26/21 09:47 Penicillins Allergy Unknown unknown Verified 02/26/21 09:47 Iodine and Iodide Containing AdvReac Intermediate Itching Verified 02/26/21 09:47 Produc prednisone AdvReac Unknown Unknown Verified 02/26/21 09:47 Radiographic Dyes/Iodine Allergy Intermediate itching, Uncoded 02/16/21 14:54 weakness of lower limbs Review of Systems Review of Systems: All systems reviewed & are unremarkable except as noted in HPI and below PMFSH Past Medical History Medical History Atrial fibrillation CAD (coronary artery disease) COPD (chronic obstructive pulmonary disease) Femoral artery stenosis GERD (gastroesophageal reflux disease) Heart disease Hematuria Hyperlipidemia Hypertension Low folate Myocardial infarct 1988 Osteoarthritis Overweight Surgical History Surgical History History of cholecystectomy History of quadruple bypass Hx of cholecystectomy S/P CABG x 4 Family History Family History Mother , Age 80 Heart disease Father , Age 85. Cause of Pneumonia. No problems noted. Mother , Age 80 Family history of coronary artery disease Father , Age 85. Cause of Pneumonia. No problems noted. Social History Social History Smoking status: Former smoker Additional smoking assessment comments: Quit 1988 Alcohol intake: never Alcohol use details: rarely drinks alcohol,very occasionally Substance use: never Additional living arrangements comments: . 4 Adult Children. 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 Gender identity (if verbalized by the patient): Male Spiritual care concerns: No Agree to blood products: Yes Exam Const: General: cooperative, comfortable, no acute distress, well developed, alert, awake and Physically active HENMT: Head: normal to inspection Face and sinus: normal facial exam Mouth: Yes Normal oral and palatal mucosa present Eyes: General: appearance normal, both eyes and all related structures Periorbital: periorbital findings normal Eyelids: eyelids normal Conjunctivae: conjunctivae normal Sclera: sclerae normal Pupils: Equal, round and reactive pupils present Neck: Neck: norm
[2021-02-26] MEDS: hydrALAZINE HCL 20 MG/ML VIAL 10 MG IV PUSH (23:29)
[2021-02-26 23:30] VITALS: BP 185/68; PULSE 51; RESP 16; O2SAT 97
[2021-02-26 23:45] VITALS: BP 185/65; PULSE 55; RESP 16; O2SAT 98
[2021-02-27] VITALS (17 sets, daily range): BP systolic 104–207; BP diastolic 49–73; PULSE 56–85; RESP 14–18; TEMP 36.2–36.8; O2SAT 96–98; BMI 30.2
[2021-02-27] MEDS: amLODIPine BESYLATE 5 MG TABLET PO ×2 (00:15→09:34)
[2021-02-27] MEDS: hydrALAZINE HCL 20 MG/ML VIAL 10 MG IV PUSH ×2 (00:15→00:52)
[2021-02-27 00:40] LABS: Basophils Absolute Auto 0.01 K/mm3 (0.00-0.10); Basophils Percent Auto 0.2 % (0.0-1.0); Eosinophils Absolute Auto 0.19 K/mm3 (0.02-0.50); Eosinophils Percent Auto 3.3 % (1.0-6.0); Hemoglobin 14.3 g/dL (12.4-15.3); Immature Granulocyte Absolute 0.02 K/mm3 (0.00-0.00); Immature Granulocyte Percent A 0.3 % (0.0-0.0); Immature Platelet Fraction Pct 3.5 % (1.0-7.0); Lymphocytes Absolute Auto 1.91 K/mm3 (1.10-4.50); Lymphocytes Percent Auto 32.8 % (18.0-42.0); Mean Corpuscular Hemoglobin 28.9 pg (27.0-31.0); Mean Corpuscular Volume 84.8 fL (78.0-102.0); Mean Platelet Volume 11.7 fl (8.7-11.0); Monocytes Absolute Auto 0.53 K/mm3 (0.10-0.90); Monocytes Percent Auto 9.1 % (2.0-11.0); Neutrophils Absolute Auto 3.2 K/mm3 (1.7-7.2); Neutrophils Percent Auto 54.3 % (50.0-70.0); Platelet Count Result 115 K/mm3 (150-420); Red Blood Count 4.95 M/mm3 (4.70-6.10); White Blood Count 5.8 K/mm3 (4.8-10.8)
[2021-02-27 00:48] LABS: INR 1.1; Partial Thromboplastin Time 24.9 SEC (23.90-30.70); Prothrombin Time 11.3 Seconds (9.50-12.10)
[2021-02-27] MEDS: LORazepam INJ (*CRX) 2 MG/ML VIAL 0.5 MG IV PUSH (00:48)
[2021-02-27] MEDS: MAG HYDROX/AL HYDROX/SIMETH 30 ML UDC PO (00:52)
[2021-02-27 00:55] LABS: Alanine Aminotransferase 32 U/L (16-63); Albumin Level 3.7 g/dL (3.4-5.0); Alkaline Phosphatase 59 U/L (46-116); Anion Gap 11 mmol/L (8-16); Aspartate Amino Transferase 19 U/L (15-37); Bilirubin,Total 0.3 mg/dL (0.00-1.00); Blood Urea Nitrogen 20 mg/dL (7-18); Calcium 8.8 mg/dL (8.5-10.1); Carbon Dioxide 27 mmol/L (21-32); Chloride 105 mmol/L (98-108); Estimated CRCL calculation 47 ml/min; Estimated Glomerular Filt Rate > 60; Glucose 99 mg/dL (70-99); Osmolality Calculated 298 mOsm/kg (285-295); Potassium 3.9 mmol/L (3.5-5.1); Sodium 143 mmol/L (136-145); Total Protein 6.9 g/dL (6.4-8.2); Troponin I 16.4 ng/L (0.00-60.4)
[2021-02-27 00:56] LABS: NT Pro B Type Natriuretic Pept 800 pg/mL (0-450)
--- NOTE | 2021-02-27 01:32 | PC.NURSE ---
pt being admitted to room 203 for 23 hour observation
--- NOTE | 2021-02-27 01:50 | ADMGEN ---
This patient, Celestino Rodriguez, was admitted to 2nd Floor Room 203-1. Patient was oriented to hospital policies and general routines including ID bracelet, bed and alarms, pain management, procedures, bathroom and other care routines, personal items, smoking policy, room service/diet, and visiting hours. Information on how to activate the Rapid Response Team has been discussed. Patient is encouraged to report perceived risks to care and to ask questions if he does not understand what he is told or what he should do.
[2021-02-27 04:31] LABS: Troponin I 68.7 ng/L (0.00-60.4)
[2021-02-27] MEDS: SUCRALFATE SUSP 100 MG/ML 10 ML UDC 1000 MG PO ×4 (06:31→21:06)
--- NOTE | 2021-02-27 06:51 | PC.NURSE ---
Medication was given to patient at 0630. Blood pressure was checked at the same time. Results were 166/63. Patient stated that he was not in pain, and was going to attempt to go back to sleep.
[2021-02-27 07:14] LABS: Basophils Absolute Auto 0.02 K/mm3 (0.00-0.10); Basophils Percent Auto 0.3 % (0.0-1.0); Eosinophils Absolute Auto 0.13 K/mm3 (0.02-0.50); Eosinophils Percent Auto 2.1 % (1.0-6.0); Hematocrit 40.3 % (37.0-46.0); Hemoglobin 13.8 g/dL (12.4-15.3); Immature Granulocyte Absolute 0.01 K/mm3 (0.00-0.00); Immature Granulocyte Percent A 0.2 % (0.0-0.0); Immature Platelet Fraction Pct 3.5 % (1.0-7.0); Lymphocytes Absolute Auto 1.52 K/mm3 (1.10-4.50); Lymphocytes Percent Auto 24.4 % (18.0-42.0); Mean Corpuscular HGB Conc 34.2 g/dL (32.0-36.0); Mean Corpuscular Volume 84.7 fL (78.0-102.0); Mean Platelet Volume 11.1 fl (8.7-11.0); Monocytes Percent Auto 9.6 % (2.0-11.0); Neutrophils Percent Auto 63.4 % (50.0-70.0); Platelet Count Result 119 K/mm3 (150-420); Red Blood Count 4.76 M/mm3 (4.70-6.10); Red Cell Distribution Width 15.1 % (11.6-14.4); White Blood Count 6.2 K/mm3 (4.8-10.8)
[2021-02-27 07:39] LABS: Alanine Aminotransferase 32 U/L (16-63); Albumin Level 3.4 g/dL (3.4-5.0); Alkaline Phosphatase 56 U/L (46-116); Anion Gap 10 mmol/L (8-16); Aspartate Amino Transferase 19 U/L (15-37); Bilirubin,Total 0.4 mg/dL (0.00-1.00); Blood Urea Nitrogen 21 mg/dL (7-18); Calcium 8.6 mg/dL (8.5-10.1); Carbon Dioxide 30 mmol/L (21-32); Chloride 104 mmol/L (98-108); Estimated CRCL calculation 55 ml/min; Estimated Glomerular Filt Rate > 60; Glucose 98 mg/dL (70-99); Osmolality Calculated 301 mOsm/kg (285-295); Potassium 3.7 mmol/L (3.5-5.1); Sodium 144 mmol/L (136-145); Total Protein 6.3 g/dL (6.4-8.2)
[2021-02-27 07:43] LABS: Magnesium 2.2 mg/dL (1.8-2.4); NT Pro B Type Natriuretic Pept 1070 pg/mL (0-450); Troponin I 67.9 ng/L (0.00-60.4)
[2021-02-27] MEDS: hydrALAZINE 10 MG TABLET PO ×4 (08:00→21:06)
[2021-02-27] MEDS: ASPIRIN 81 MG ENTERIC TABLET PO (09:00)
[2021-02-27] MEDS: ISOSORBIDE MONONITRATE 60 MG TAB.ER.24H BY MOUTH (09:31)
[2021-02-27] MEDS: PANTOPRAZOLE 40 MG TABLET PO ×2 (09:31→17:04)
[2021-02-27] MEDS: CLOPIDOGREL BISULFATE 75 MG TABLET BY MOUTH (09:31)
[2021-02-27] MEDS: FUROSEMIDE 40 MG TABLET PO ×2 (09:31→17:04)
[2021-02-27] MEDS: ROSUVASTATIN 10 MG TABLET 20 MG PO (09:32)
[2021-02-27] MEDS: POTASSIUM CHLORIDE 20 MEQ TABLET PO (09:32)
[2021-02-27] MEDS: TAMSULOSIN HCL 0.4 MG CAPSULE 0.8 MG PO (09:33)
[2021-02-27] MEDS: METOPROLOL SUCCINATE EXT REL 25 MG TABCR PO (09:33)
[2021-02-27] MEDS: FOLIC ACID 1 MG TABLET PO (09:33)
--- NOTE | 2021-02-27 11:45 | PM.IMHP ---
H&P: HPI History of Present Illness Date/Time: 02/27/21 11:45 This is a 85 YO male that presented to ED with complains of a elevated BP 4 mg. Patient has a past medical history of 8, CAD, COPD, artery stenosis, GERD, heart disease, hematuria, hyperlipidemia, hypertension, low pelvic, history ND with CABG, and osteoarthritis. According to patient his gradall operator is Dr. Patel at [facility]. His gradall operator has been monitoring his blood pressure for quite some time now due to uncontrolled hypertension. According to patient his gradall operator instructed him to take his blood pressure twice daily his blood pressure is elevated he is to take a nitro or Norvasc as needed and his metoprolol daily. Patient noted that he did see his primary care physician yesterday at that time his blood pressure was elevated but blood pressure medication was not ordered due to patient's recent hypotensive episode, patient was instructed to follow-up with gradall operator in 2 weeks. Patient notes that he did not have any symptoms at home patient notes that yesterday while taking his blood pressure he believes that his blood pressure was approximately in [id number]. Patient notes that he did ask his gradall operator instructed him which was to take either a nitro or Norvasc as needed for elevated blood. Patient notes that he took 3 nitros with no results his blood pressure remained at that time he decided to come to our ED. in our ED patient was given hydralazine x3 to better control his blood pressure reading. On admission patient was bradycardic patient also noticed that when he arrived to our ED he did experience chest heaviness. Patient will remain at our facility for observation and to rule out ND, his medical records has been requested from his gradall operator. Patient also does have shortness of breath which is unchanged. Vital signs 155/67, 62, 16, 97.8, 97% on room air, WBCs 6.2, hemoglobin 13.8, hematocrit 40.3, platelets 119, sodium 144, potassium 3.7 BUN 100, glucose 98, AST 19, ALT 32, troponin 16.4, BUN 800, chest x-ray unremarkable EKGs sinus bradycardia AV block in left which is unchanged from 05/24/19 patient will be admitted to observation to rule out ND better control his blood pressure. The patient denies CP, palpitation, extremity numbness, lightheadedness, dizziness, constipation, diarrhea, chills, or fever. <FLYNN Rowell - Last Filed: 02/27/21 12:36> Chief Complaint: elevated bp <FLYNN Rowell - Last Filed: 02/27/21 12:36> Review of Systems Review of Systems: A 14 organ system Review of Systems was performed and pertinent positives included in the HPI, otherwise remaining ROS is negative. <FLYNN Rowell - Last Filed: 02/27/21 12:36> [facility] Past Medical History Medical History: Medical History Atrial fibrillation CAD (coronary artery disease) COPD (chronic obstructive pulmonary disease) Femoral artery stenosis GERD (gastroesophageal reflux disease) Heart disease Hematuria Hyperlipidemia Hypertension Low folate Myocardial infarct 1989 Osteoarthritis Overweight <FLYNN Rowell - Last Filed: 02/27/21 12:36> Surgical History Surgical History: Surgical History History of cholecystectomy History of quadruple bypass Hx of cholecystectomy S/P CABG x 4 <FLYNN Rowell - Last Filed: 02/27/21 12:36> Family History Family History: Family History Mother , Age 80 Heart disease Father , Age 85. Cause of Pneumonia. No problems noted. Mother , Age 80 Family history of coronary artery disease Father , Age 85. Cause of Pneumonia. No problems noted. <FLYNN Rowell - Last Filed: 02/27/21 12:36> Social History Social History: Social
[2021-02-27 13:19] LABS: Troponin I 75.9 ng/L (0.00-60.4)
[2021-02-27] MEDS: ACETAMINOPHEN 325 MG TABLET 650 MG PO (14:09)
--- NOTE | 2021-02-27 14:15 | ECHO_ITS ---
Patient Info Name: Celestino Rodriguez Age: 85 years : 1935 Gender: Male Ht: 70 in Wt: 210 lbs BSA: 2.19 m2 HR: 60 bpm BP: 161 / 94 mmHg Technical Quality: Good Exam Date: 02/27/2021 2:12 PM Exam Location: [facility] [place] Patient Status: Outpatient Admit Date: 02/27/2021 Staff Ordering Physician: Karlie GordonP-Vladimir Saw Runner: Shyam Mcmahon, COLETTE, RT Attending Provider: Angelito Shepard MD Referring Physician: Evan FIERRO; Exam Type: CA echo doppler color flow Study Info Indications R06.02 - Shortness of breath Complete two-dimensional, color flow and Doppler transthoracic echocardiogram is performed. Strain analysis performed. Summary 1. Complete two-dimensional, color flow and Doppler transthoracic echocardiogram is performed. 2. Left ventricular chamber dimension is normal. 3. Left ventricular systolic function is normal, estimated at 55-60%. 4. The left ventricular diastolic function is grade I diastolic dysfunction. 5. E/e' 14 is mildly elevated. 6. Global longitudinal strain is mildly abnormal at -16.7%. 7. Left atrial chamber dimension is mildly enlarged. 8. There is mild aortic valve sclerosis. 9. There is trace aortic valve regurgitation. 10. The mitral valve has moderately calcified annulus. 11. There is mild mitral valve regurgitation. 12. There is trace tricuspid valve regurgitation. 13. No pulmonary hypertension, estimated pulmonary arterial systolic pressure is 32 mmHg. Left Ventricle E/e' 14 is mildly elevated. Global longitudinal strain is mildly abnormal at -16.7%. Left ventricular chamber dimension is normal. Left ventricular systolic function is normal, estimated at 55-60%. The left ventricular diastolic function is grade I diastolic dysfunction. Right Ventricle Right ventricular systolic function is normal and with normal TAPSE 1.8 cm. Right ventricular chamber dimension is normal. Left Atria Left atrial chamber dimension is mildly enlarged. Right Atria Right atrial chamber dimension is normal. Aortic Valve The aortic valve is trileaflet. There is mild aortic valve sclerosis. There is no aortic valve stenosis. There is trace aortic valve regurgitation. Pulmonic Valve There is no pulmonic regurgitation. Mitral Valve The mitral valve has moderately calcified annulus. There is no mitral valve stenosis. There is mild mitral valve regurgitation. Tricuspid Valve There is trace tricuspid valve regurgitation. No pulmonary hypertension, estimated pulmonary arterial systolic pressure is 32 mmHg. Pericardium/Pleural There is no pericardial effusion. Inferior Vena Cava Normal inferior vena cava with >50% collapse upon inspiration consistent with normal right atrial pressure, 5 mmHg. Aorta The aortic root size at the sinus of Valsalva is normal. Left Ventricular Outflow Tract Name Value Normal LVOT 2D LVOT Diameter 2.0 cm LVOT Doppler LVOT Peak Velocity 137 cm/s LVOT Peak Gradient 8 mmHg LVOT Mean Gradient 4 mmHg LVOT VTI 32 c
--- NOTE | 2021-02-27 16:41 | PCPTNOTE ---
No Care Plan initiated due to patient being discharged today.
[2021-02-27] MEDS: ENOXAPARIN 40 MG/0.4 ML SYRINGE SUB-Q (17:05)
--- NOTE | 2021-02-27 17:13 | PC.NURSE ---
Pt educated on fall/bleed risk. Education also reinforced on urinal use for measuring output and pt safety. Call light within reach.
[2021-02-27 18:13] LABS: Troponin I 58.3 ng/L (0.00-60.4)
--- NOTE | 2021-02-27 20:26 | PC.NURSE ---
Assessment completed. Pt was cooperative and in pleasant mood. Bed is in lowest position for pt safety with 3 bed rails raised, call light and phone within reach. Light was left on in the room per pt request.
--- NOTE | 2021-02-27 22:13 | PC.NURSE ---
Patient rounding completed. Pt is currently sleeping on his ride side with the bed in the lowest position. Call light within reach.
[2021-02-28] MEDS: MAG HYDROX/AL HYDROX/SIMETH 30 ML UDC PO (01:49)
[2021-02-28 01:50] VITALS: BP 137/49; PULSE 70
--- NOTE | 2021-02-28 01:55 | PC.NURSE ---
patient called out complaining of upset stomach, he was worried about his blood pressure, blood pressure is 137/49, 70 pulse. patient states he has a history of acid reflux, milk of magnesium given and head of bed elevated more. will continue to monitor.
[2021-02-28 04:00] VITALS: PULSE 58
[2021-02-28 05:07] VITALS: BP 131/59; PULSE 70; RESP 18; TEMP 36.7; O2SAT 95
[2021-02-28 05:08] LABS: Hematocrit 38.7 % (37.0-46.0); Hemoglobin 13.2 g/dL (12.4-15.3); Mean Corpuscular HGB Conc 34.1 g/dL (32.0-36.0); Mean Corpuscular Hemoglobin 29.1 pg (27.0-31.0); Mean Corpuscular Volume 85.2 fL (78.0-102.0); Mean Platelet Volume 11.1 fl (8.7-11.0); Platelet Count Result 118 K/mm3 (150-420); Red Blood Count 4.54 M/mm3 (4.70-6.10); Red Cell Distribution Width 15.3 % (11.6-14.4); White Blood Count 6.4 K/mm3 (4.8-10.8)
[2021-02-28 05:37] LABS: Anion Gap 7 mmol/L (8-16); Blood Urea Nitrogen 20 mg/dL (7-18); Calcium 8.4 mg/dL (8.5-10.1); Carbon Dioxide 32 mmol/L (21-32); Chloride 105 mmol/L (98-108); Estimated CRCL calculation 48 ml/min; Estimated Glomerular Filt Rate 59; Glucose 89 mg/dL (70-99); Osmolality Calculated 299 mOsm/kg (285-295); Potassium 3.8 mmol/L (3.5-5.1); Sodium 144 mmol/L (136-145); Troponin I 41.5 ng/L (0.00-60.4)
[2021-02-28 05:40] LABS: NT Pro B Type Natriuretic Pept 956 pg/mL (0-450)
[2021-02-28] MEDS: SUCRALFATE SUSP 100 MG/ML 10 ML UDC 1000 MG PO (06:26)
--- NOTE | 2021-02-28 07:25 | P.DS_ITS ---
DS: Admitting Diagnosis Discharge Date 02/28/2021 Admitting Diagnosis Hypertension and elevated troponin DS: Discharge Diagnosis Discharge Diagnosis (1) Hypertension: Qualifiers: Hypertension type: primary hypertension Qualified Code(s): I10 - Essential (primary) hypertension Code(s): I10 - Essential (primary) hypertension Status: Acute Assessment and Plan: * Blood pressure 111/59 * Continue to hydralazine 10 mg schedule 4 times daily, isosorbide mononitrate 60 mg daily, metoprolol 25 mg daily Norvasc 5 mg daily on discharge patient medication has been changed he will take hydralazine 10 mg twice daily, and resume Norvasc 2.5., Instead of taking metoprolol 25 mg extended release twice daily he will take it once daily. 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 Patel * Vital signs as ordered * Will adjust medication as needed (2) Atrial fibrillation: Code(s): I48.91 - Unspecified atrial fibrillation Status: Acute Assessment and Plan: * paroxysmal * Controlled * Continue metoprolol * 2017 alarm security or surveillance monitor showed several brief runs of nonstained VT with longest run being 10 beats not A fib (3) GERD (gastroesophageal reflux disease): Qualifiers: Esophagitis presence: without esophagitis Qualified Code(s): K21.9 - Gastro-esophageal reflux disease without esophagitis Code(s): K21.9 - Gastro-esophageal reflux disease without esophagitis Status: Acute Assessment and Plan: * Continue pantoprazole (4) Hyperlipidemia: Code(s): E78.5 - Hyperlipidemia, unspecified Status: Acute Assessment and Plan: * ContinueRosuvastatin (5) Osteoarthritis: Code(s): M19.90 - Unspecified osteoarthritis, unspecified site Status: Acute Assessment and Plan: * Continue pain medication (6) COPD (chronic obstructive pulmonary disease): Code(s): J44.9 - Chronic obstructive pulmonary disease, unspecified Status: Acute Assessment and Plan: * Albuterol as needed (7) LIV (generalized anxiety disorder): Code(s): F41.1 - Generalized anxiety disorder Status: Acute Assessment and Plan: * Started Ativan (8) BPH (benign prostatic hyperplasia): Code(s): N40.0 - Benign prostatic hyperplasia without lower urinary tract symptoms Status: Acute Assessment and Plan: * Continue Flomax (9) CHF (congestive heart failure): Code(s): I50.9 - Heart failure, unspecified Status: Acute Assessment and Plan: * echo indicate grade I diastolic dysfunction. (10) Elevated troponin: Code(s): R77.8 - Other specified abnormalities of plasma proteins Status: Acute Assessment and Plan: * trop 68.7>67.9>75.9>58.3>41.5 * 10/15/2016-positive stress echo suggestion of ischemia in the LAD distribution normal LV function * cabg X4 at the age of 63 (04/28/1998) * cardic cath 10/16/2016 severe pilot station vessel coronary artery disease with LAD occlusion, ostial circumflex with 80% stenosis, ramus 95% stenosis, right coronary artery occlusion. * stenting of the ostial circumflex and proximal circumflex (11) Bradycardia: Code(s): R00.1 - Bradycardia, unspecified Status: Acute Assessment and Plan: * on admission heart rate 56, patient has a history of bradycardia per cardiology notes DS: Summary Hospital Course Reason for hospitalization: Elevated blood pressure Hospital Course: This is a 85 YO male that presented to ED with compl
--- NOTE | 2021-02-28 07:25 | PM.DS ---
DS: Admitting Diagnosis Discharge Date 02/28/2021 Admitting Diagnosis Hypertension and elevated troponin DS: Discharge Diagnosis Discharge Diagnosis (1) Hypertension: Qualifiers: Hypertension type: primary hypertension Qualified Code(s): I10 - Essential (primary) hypertension Code(s): I10 - Essential (primary) hypertension Status: Acute Assessment and Plan: Blood pressure 111/59 Continue to hydralazine 10 mg schedule 4 times daily, isosorbide mononitrate 60 mg daily, metoprolol 25 mg daily Norvasc 5 mg daily on discharge patient medication has been changed he will take hydralazine 10 mg twice daily, and resume Norvasc 2.5., Instead of taking metoprolol 25 mg extended release twice daily he will take it once daily. Requested medical records from his district representative Dr. Patel Vital signs as ordered Will adjust medication as needed (2) Atrial fibrillation: Code(s): I48.91 - Unspecified atrial fibrillation Status: Acute Assessment and Plan: paroxysmal Controlled Continue metoprolol 2016 cardiac catheterization technician showed several brief runs of nonstained VT with longest run being 10 beats not A fib (3) GERD (gastroesophageal reflux disease): Qualifiers: Esophagitis presence: without esophagitis Qualified Code(s): K21.9 - Gastro-esophageal reflux disease without esophagitis Code(s): K21.9 - Gastro-esophageal reflux disease without esophagitis Status: Acute Assessment and Plan: Continue pantoprazole (4) Hyperlipidemia: Code(s): E78.5 - Hyperlipidemia, unspecified Status: Acute Assessment and Plan: ContinueRosuvastatin (5) Osteoarthritis: Code(s): M19.90 - Unspecified osteoarthritis, unspecified site Status: Acute Assessment and Plan: Continue pain medication (6) COPD (chronic obstructive pulmonary disease): Code(s): J44.9 - Chronic obstructive pulmonary disease, unspecified Status: Acute Assessment and Plan: Albuterol as needed (7) LIV (generalized anxiety disorder): Code(s): F41.1 - Generalized anxiety disorder Status: Acute Assessment and Plan: Started Ativan (8) BPH (benign prostatic hyperplasia): Code(s): N40.0 - Benign prostatic hyperplasia without lower urinary tract symptoms Status: Acute Assessment and Plan: Continue Flomax (9) CHF (congestive heart failure): Code(s): I50.9 - Heart failure, unspecified Status: Acute Assessment and Plan: echo indicate grade I diastolic dysfunction. (10) Elevated troponin: Code(s): R77.8 - Other specified abnormalities of plasma proteins Status: Acute Assessment and Plan: trop 68.7>67.9>75.9>58.3>41.5 10/15/2016-positive stress echo suggestion of ischemia in the LAD distribution normal LV function cabg X4 at the age of 63 (04/28/1998) cardic cath 10/16/2016 severe [place]vas[place] vessel coronary artery disease with LAD occlusion, ostial circumflex with 80% stenosis, ramus 95% stenosis, right coronary artery occlusion. stenting of the ostial circumflex and proximal circumflex (11) Bradycardia: Code(s): R00.1 - Bradycardia, unspecified Status: Acute Assessment and Plan: on admission heart rate 56, patient has a history of bradycardia per cardiology notes DS: Summary Hospital Course Reason for hospitalization: Elevated blood pressure Hospital Course: This is a 85 YO male that presented to ED with complains of a elevated BP 4 mg. Patient has a past medical history of , CAD, COPD, artery stenosis, GERD, heart disease, hematuria, hyperlipidemia, hypertension, low pelvic, history IN with CABG, and osteoarthritis. According to patient his district representative is Dr. Patel at [facility]. His district representative has been monitoring his blood pressure for quite some time now due to uncontrolled hypertension. According to patient his district representative instructed
[2021-02-28 08:00] VITALS: BP 111/95; PULSE 84; PULSE 95; RESP 14; TEMP 36.2; O2SAT 98
[2021-02-28] MEDS: POTASSIUM CHLORIDE 20 MEQ TABLET PO (08:04)
[2021-02-28] MEDS: hydrALAZINE 10 MG TABLET PO (08:04)
[2021-02-28] MEDS: ISOSORBIDE MONONITRATE 60 MG TAB.ER.24H BY MOUTH (08:46)
[2021-02-28] MEDS: ASPIRIN 81 MG ENTERIC TABLET PO (08:46)
[2021-02-28] MEDS: TAMSULOSIN HCL 0.4 MG CAPSULE 0.8 MG PO (08:46)
[2021-02-28] MEDS: amLODIPine BESYLATE 5 MG TABLET PO (08:47)
[2021-02-28] MEDS: PANTOPRAZOLE 40 MG TABLET PO (08:47)
[2021-02-28] MEDS: ROSUVASTATIN 10 MG TABLET 20 MG PO (08:47)
[2021-02-28 08:48] VITALS: PULSE 82
[2021-02-28] MEDS: FUROSEMIDE 40 MG TABLET PO (08:48)
[2021-02-28] MEDS: METOPROLOL SUCCINATE EXT REL 25 MG TABCR PO (08:48)
[2021-02-28] MEDS: CLOPIDOGREL BISULFATE 75 MG TABLET BY MOUTH (08:48)
[2021-02-28] MEDS: FOLIC ACID 1 MG TABLET PO (08:48)
--- NOTE | 2021-02-28 11:30 | PC.NURSE ---
Pt given discharge instructions regarding medication changes, prescriptions sent to [facility]. Diet, exercise and follow up appointment with PCP on 03/01/21 @ 0829. RN reviewed each medication with the pt prior to discharge and pt verbalized understanding. RN took pt to his car via and assisted him into the car.
--- NOTE | 2021-03-02 14:13 | PC.NURSE ---
Pt states he received and understood his discharge instructions. Pt also states the nurse did a very good job .
== END 2021-02-28 11:25 | disposition home health service (06) ==
LOC: CHSED 02-27 00:22 → CHS2ND 02-27 07:28
PROVIDERS: Nurse Practitioner; Admitting Provider Emergency Medicine; Emergency Provider Emergency Medicine; PCP Family Medicine; Visit Provider Emergency Medicine
DX: I11.0 Hypertensive heart disease with heart failure (principal); I50.9 Heart failure, unspecified; I48.20 Chronic atrial fibrillation, unspecified; I25.10 Atherosclerotic heart disease of native coronary artery without angina pectoris; I34.0 Nonrheumatic mitral (valve) insufficiency; J44.9 Chronic obstructive pulmonary disease, unspecified; I25.2 Old myocardial infarction; I70.90 Unspecified atherosclerosis; E78.5 Hyperlipidemia, unspecified; K21.9 Gastro-esophageal reflux disease without esophagitis; M19.90 Unspecified osteoarthritis, unspecified site; N40.0 Benign prostatic hyperplasia without lower urinary tract symptoms; R77.8 Other specified abnormalities of plasma proteins; R00.1 Bradycardia, unspecified; F41.1 Generalized anxiety disorder; Z90.49 Acquired absence of other specified parts of digestive tract; Z95.1 Presence of aortocoronary bypass graft; Z87.891 Personal history of nicotine dependence
CPT/HCPCS: 36415; 71046; 80048; 80053; 82553; 83735; 83880; 84484; 85025; 85027; 85055; 85610; 85730; 93005; 93306; 96372; 96374; 96375; 96376; 97161; 97165; 99285; A9270; G0378; J0360; J1650; J2060

== ENCOUNTER 2021-03-12 21:22 | Emergency (ER) | payer MEDICARE, BC, SELFPAY ==
[2021-03-12 22:03] VITALS: BP 166/58; PULSE 63; RESP 18; TEMP 36.7; O2SAT 97
[2021-03-12 22:35] LABS: Basophils Absolute Auto 0.02 K/mm3 (0.00-0.10); Basophils Percent Auto 0.3 % (0.0-1.0); Eosinophils Absolute Auto 0.09 K/mm3 (0.02-0.50); Eosinophils Percent Auto 1.2 % (1.0-6.0); Hematocrit 38.9 % (37.0-46.0); Hemoglobin 12.9 g/dL (12.4-15.3); Immature Granulocyte Absolute 0.02 K/mm3 (0.00-0.00); Immature Granulocyte Percent A 0.3 % (0.0-0.0); Lymphocytes Absolute Auto 1.54 K/mm3 (1.10-4.50); Lymphocytes Percent Auto 20.1 % (18.0-42.0); Mean Corpuscular HGB Conc 33.2 g/dL (32.0-36.0); Mean Corpuscular Hemoglobin 29.1 pg (27.0-31.0); Mean Corpuscular Volume 87.6 fL (78.0-102.0); Monocytes Absolute Auto 0.84 K/mm3 (0.10-0.90); Neutrophils Absolute Auto 5.2 K/mm3 (1.7-7.2); Neutrophils Percent Auto 67.1 % (50.0-70.0); Platelet Count Result 210 K/mm3 (150-420); Red Blood Count 4.44 M/mm3 (4.70-6.10); Red Cell Distribution Width 14.6 % (11.6-14.4); White Blood Count 7.7 K/mm3 (4.8-10.8)
[2021-03-12] MEDS: SODIUM CHLORIDE 0.9% IV 1,000 ML 999 ML IV CONT (22:40)
[2021-03-12 22:50] LABS: Alanine Aminotransferase 18 U/L (16-63); Albumin Level 3.6 g/dL (3.4-5.0); Alkaline Phosphatase 56 U/L (46-116); Anion Gap 6 mmol/L (8-16); Aspartate Amino Transferase 20 U/L (15-37); Bilirubin,Total 0.5 mg/dL (0.00-1.00); Blood Urea Nitrogen 24 mg/dL (7-18); Calcium 8.7 mg/dL (8.5-10.1); Carbon Dioxide 29 mmol/L (21-32); Chloride 101 mmol/L (98-108); Estimated CRCL calculation 48 ml/min; Estimated Glomerular Filt Rate > 60; Glucose 96 mg/dL (70-99); Lipase 68 U/L (73-393); Osmolality Calculated 286 mOsm/kg (285-295); Potassium 4.2 mmol/L (3.5-5.1); Sodium 136 mmol/L (136-145); Total Protein 6.5 g/dL (6.4-8.2)
--- NOTE | 2021-03-12 23:06 | ED.NAVMDI ---
HPI - Nausea/Vomiting/Diarrhea General Chief complaint: Nausea/Vomiting/Diarrhea Stated complaint: diarrhea Source: patient Mode of arrival: ambulatory Limitations: no limitations History of Present Illness HPI Narrative: this is a 85-year-old gentleman that presents with a five-day history of diarrhea of loose watery, did call his primary care physician and told him to hold his proton pump inhibitor, but his diarrhea continues otherwise there is no abdominal pain no nausea vomiting no shortness of breath no fever chills. The patient was on antibiotics approximately 1 month ago. MD elicited complaint: diarrhea Onset (ago): day(s) Description of vomiting: watery Description of diarrhea: watery Associated abdominal pain: No Related Data Home Medications Medication Instructions Recorded Confirmed olopatadine 1 drp OPHTHALMIC (EYE) DAILY 05/24/19 02/26/21 potassium chloride 20 meq PO DAILY 05/24/19 02/26/21 aspirin 81 mg tablet,delayed 81 mg PO DAILY 06/01/19 02/26/21 release rosuvastatin 20 mg PO DAILY 01/29/21 02/26/21 tamsulosin 0.4 mg PO DAILY 01/29/21 02/26/21 amlodipine 5 mg tablet 5 mg PO DAILY 03/01/21 03/01/21 Allergies Allergy/AdvReac Type Severity Reaction Status Date / Time amoxicillin Allergy Intermediate Unknown Verified 03/12/21 22:03 Penicillins Allergy Unknown unknown Verified 03/12/21 22:03 Iodine and Iodide Containing AdvReac Intermediate Itching Verified 03/12/21 22:03 Produc prednisone AdvReac Unknown Unknown Verified 03/12/21 22:03 Radiographic Dyes/Iodine Allergy Intermediate itching, Uncoded 02/16/21 14:54 weakness of lower limbs Review of Systems Review of Systems: All systems reviewed & are unremarkable except as noted in HPI and below PMFSH Past Medical History Medical History Atrial fibrillation CAD (coronary artery disease) COPD (chronic obstructive pulmonary disease) Femoral artery stenosis GERD (gastroesophageal reflux disease) Heart disease Hematuria Hyperlipidemia Hypertension Low folate Myocardial infarct 1988 Osteoarthritis Overweight Surgical History Surgical History History of cholecystectomy History of quadruple bypass Hx of cholecystectomy S/P CABG x 4 Family History Family History Mother , Age 80 Heart disease Father , Age 85. Cause of Pneumonia. No problems noted. Mother , Age 80 Family history of coronary artery disease Father , Age 85. Cause of Pneumonia. No problems noted. Social History Social History Smoking packs per day: 1 Smoking cigarettes per day: 20.0 Years smoked: 30 Smoking pack-years: 30.00 Smoking status: Former smoker Additional smoking assessment comments: Quit 1988 Alcohol intake: current Alcohol use details: rarely drinks alcohol,very occasionally Substance use: never Substance use type: does not use Additional living arrangements comments: . 4 Adult Children. 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 Gender identity (if verbalized by the patient): Male Spiritual care concerns: No Agree to blood products: Yes Exam Const: General: no acute distress and alert Orientation/consciousness: patient oriented x3 HENMT: Head: normal to inspection Eyes: Pupils: Equal, round and reactive pupils present EOM: EOMs intact bilaterally Direct Ophthalmoscopy: no photophobia Chest: Chest palpation & inspection: normal inspection of the chest Resp: Effort & Inspection: normal respiratory effort Auscultation: clear to auscultation bilaterally Cardio: Rate: regular rate Rhythm: regular rhythm GI: GI Palp: Yes Soft to palpation G
[2021-03-12] MEDS: metroNIDAZOLE 250 MG TABLET 500 MG PO (23:10)
[2021-03-12 23:52] VITALS: BP 145/56; PULSE 51; RESP 16; O2SAT 98
== END 2021-03-12 23:32 | disposition home or self-care (01) ==
PROVIDERS: Emergency Provider Emergency Medicine; PCP Family Medicine
DX: A09 Infectious gastroenteritis and colitis, unspecified (principal); I25.10 Atherosclerotic heart disease of native coronary artery without angina pectoris; J44.9 Chronic obstructive pulmonary disease, unspecified; K21.9 Gastro-esophageal reflux disease without esophagitis; E78.5 Hyperlipidemia, unspecified; I10 Essential (primary) hypertension; Z87.891 Personal history of nicotine dependence
CPT/HCPCS: 36415; 80053; 83690; 85025; 96360; 99283; A9270; J7030

== ENCOUNTER 2021-03-13 16:19 | Outpatient (CLI) | payer MEDICARE, SELFPAY | END 2021-03-13 16:20 | disposition home or self-care (01) | LOC: CHSLAB 16:21 | PROVIDERS: PCP Nurse Practitioner Family; Visit Provider Nurse Practitioner Family | DX: R19.7 Diarrhea, unspecified (principal) | CPT/HCPCS: 87045; 87324; 87427; 87493 ==

== ENCOUNTER 2021-03-14 12:04 | Outpatient (NON) | payer MEDICARE, SELFPAY ==
[2021-03-14 12:47] LABS: Alanine Aminotransferase 23 U/L (16-63); Albumin Level 3.8 g/dL (3.4-5.0); Alkaline Phosphatase 58 U/L (46-116); Anion Gap 8 mmol/L (8-16); Aspartate Amino Transferase 24 U/L (15-37); Bilirubin,Total 0.4 mg/dL (0.00-1.00); Blood Urea Nitrogen 13 mg/dL (7-18); Calcium 8.7 mg/dL (8.5-10.1); Carbon Dioxide 28 mmol/L (21-32); Chloride 103 mmol/L (98-108); Estimated Glomerular Filt Rate > 60; Glucose 85 mg/dL (70-99); Osmolality Calculated 287 mOsm/kg (285-295); Potassium 4.4 mmol/L (3.5-5.1); Sodium 139 mmol/L (136-145); Total Protein 6.9 g/dL (6.4-8.2)
== END 2021-03-14 12:05 | disposition home or self-care (01) ==
LOC: CHSHH 12:08
PROVIDERS: PCP Family Medicine; Visit Provider Nurse Practitioner
DX: I50.9 Heart failure, unspecified (principal)
CPT/HCPCS: 80053

== ENCOUNTER 2021-06-20 06:12 | Emergency (ER) | payer MEDICARE, BC, SELFPAY ==
[2021-06-20 06:20] VITALS: BP 190/69; PULSE 67; RESP 20; TEMP 36.2; O2SAT 99
--- NOTE | 2021-06-20 06:28 | ECG_ITS ---
Measurements Intervals [place] Rate: 63 P: 93 [place]: 198 QRS: -28 QRSD: 145 T: 84 QT: 425 QTc: 436 Interpretive Statements SINUS RHYTHM LEFT BUNDLE BRANCH BLOCK ABNORMAL ECG Electronically Signed On 06-20-2021 7:54:39 [employer] by Herman Jaimes D.O.
[2021-06-20 06:30] VITALS: BP 187/71; PULSE 68; RESP 18; O2SAT 99
[2021-06-20 06:50] VITALS: BP 171/66; PULSE 67; RESP 18; O2SAT 99
--- NOTE | 2021-06-20 07:10 | ED.GENADULT ---
HPI - General Adult General Chief complaint: Unspecified Stated complaint: High blood pressure Time Seen by Provider: 06/20/21 06:15 Source: patient and RN notes reviewed Mode of arrival: ambulatory Limitations: no limitations History of Present Illness complaint: Elevated BP at 2 am. pt took Hydralazine + AM BP meds. no acute sxs in t Onset (ago): hour(s) (4) Radiation: other (pt was asymptomatic in the ED>) Pain Consistency: other (pain-free) Relieving factors: medication Exacerbating factors: none Associated symptoms: denies other symptoms Treatments prior to arrival: other (Rx per PMD for elevated BP.) Related Data Home Medications Medication Instructions Recorded Confirmed olopatadine 1 drp OPHTHALMIC (EYE) DAILY 05/24/19 06/20/21 potassium chloride 20 meq PO DAILY 05/24/19 06/20/21 aspirin 81 mg tablet,delayed 81 mg PO DAILY 06/01/19 06/20/21 release tamsulosin 0.4 mg PO DAILY 01/29/21 06/20/21 potassium chloride meq PO 06/20/21 rosuvastatin [Crestor] See Rx Instructions .ROUTE .COMPLEX 06/20/21 06/20/21 Allergies Allergy/AdvReac Type Severity Reaction Status Date / Time amoxicillin Allergy Intermediate Unknown Verified 03/15/21 11:17 Penicillins Allergy Unknown unknown Verified 03/15/21 11:17 Iodine and Iodide Containing AdvReac Intermediate Itching Verified 03/15/21 11:17 Produc prednisone AdvReac Unknown Unknown Verified 03/15/21 11:17 Radiographic Dyes/Iodine Allergy Intermediate itching, Uncoded 03/15/21 11:17 weakness of lower limbs Review of Systems Review of Systems: All systems reviewed & are unremarkable except as noted in HPI and below PMFSH Past Medical History Medical History Atrial fibrillation CAD (coronary artery disease) COPD (chronic obstructive pulmonary disease) Femoral artery stenosis GERD (gastroesophageal reflux disease) Heart disease Hematuria Hyperlipidemia Hypertension Low folate Myocardial infarct 1988 Osteoarthritis Overweight Surgical History Surgical History History of cholecystectomy History of quadruple bypass Hx of cholecystectomy S/P CABG x 4 Family History Family History Mother , Age 80 Heart disease Father , Age 85. Cause of Pneumonia. No problems noted. Mother , Age 80 Family history of coronary artery disease Father , Age 85. Cause of Pneumonia. No problems noted. Social History Social History Smoking packs per day: 1 Smoking cigarettes per day: 20.0 Years smoked: 30 Smoking pack-years: 30.00 Smoking status: Former smoker Additional smoking assessment comments: Quit 1988 Alcohol intake: current Alcohol use details: rarely drinks alcohol,very occasionally Substance use: never Substance use type: does not use Additional living arrangements comments: . 4 Adult Children. 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 Gender identity (if verbalized by the patient): Male Spiritual care concerns: No Agree to blood products: Yes Exam Const: General: cooperative, healthy appearing, comfortable and alert Nutritional Appearance: well nourished Orientation/consciousness: patient oriented x3 Limitations: no limitations HENMT: Head: normocephalic and atraumatic Ears: external ears normal, TM's normal bilaterally and other (mild hearing impairment.) General nose exam: Normal external nose present, Normal nares present and Normal nasal mucous membranes and turbinates present Face and sinus: normal facial exam and sinuses nontender Mouth: Yes Normal oral and palatal mucosa present, Yes lip normal and Yes oropharynx normal Eyes: General: appear
[2021-06-20 07:13] VITALS: BP 170/67; PULSE 67; RESP 18; TEMP 36.3; O2SAT 97
== END 2021-06-20 07:20 | disposition home or self-care (01) ==
PROVIDERS: Emergency Provider Emergency Medicine; PCP Family Medicine
DX: I10 Essential (primary) hypertension (principal); I48.91 Unspecified atrial fibrillation; I25.10 Atherosclerotic heart disease of native coronary artery without angina pectoris; J44.9 Chronic obstructive pulmonary disease, unspecified; K21.9 Gastro-esophageal reflux disease without esophagitis; E78.5 Hyperlipidemia, unspecified; M19.90 Unspecified osteoarthritis, unspecified site; Z87.891 Personal history of nicotine dependence
CPT/HCPCS: 93005; 99283

== ENCOUNTER 2021-09-04 16:21 | Emergency (ER) | payer MEDICARE, BC, SELFPAY ==
[2021-09-04] VITALS (14 sets, daily range): BP systolic 112–131; BP diastolic 58–71; PULSE 90–138; RESP 14–20; TEMP 36.3; O2SAT 96–99
--- NOTE | ~2021-09-04 | XR_ITS ---
EXAMINATION: XR chest 1V portable Exam Date/Time: 09/04/2021 17:00 CDT CLINICAL HISTORY: palpitations with weakness Comparison: 02/27/21. RESULT: Lines, tubes, and devices: Intact sternotomy wires. Mediastinal surgical clips. Lungs and pleura: Stable scar. Otherwise clear. Cardiomediastinal silhouette: Stable cardiomediastinal silhouette. Other: No acute osseous or upper abdominal finding. IMPRESSION: No acute cardiopulmonary process Reviewed, dictated and finalized at location K.
--- NOTE | 2021-09-04 16:43 | ED.ARRPALP ---
HPI - Arrhythmia/Palpitations General Chief Complaint: Weakness Stated Complaint: elevated heart rate,high blood pressure Time Seen by Provider: 09/04/21 16:48 Source: patient History of Present Illness HPI narrative: 86-year-old male with a history of hypertension, dyslipidemia, BPH, osteoarthritis, EGD, coronary artery disease status post CABG, Diastolic CHF, atrial fibrillation, nonsustained ventricular tachycardia, peripheral vascular disease, COPD presented to the ER with -- not feeling well -- he took his blood pressure which was 101/60 along with the heart rate as high as 135. The patient did not take his a.m. blood pressure medications which include Norvasc and metoprolol. The patient did not have any chest pain or shortness of breath. no fever or chills. MD complaint: rapid heart beat Onset (ago): day(s) ( For past 3-4 days.) Duration: constant Severity: mild Context: occurred during rest Arrhythmia history: atrial fibrillation Associated symptoms: denies other symptoms Related Data Home Medications Medication Instructions Recorded Confirmed olopatadine 1 drp OPHTHALMIC (EYE) DAILY 05/24/19 09/04/21 potassium chloride 20 meq PO BID 05/24/19 09/04/21 tamsulosin 0.4 mg PO BID 01/29/21 09/04/21 rosuvastatin [Crestor] 40 mg PO DAILY 06/20/21 09/04/21 amlodipine 5 mg PO DAILY 09/04/21 09/04/21 furosemide 20 mg PO DAILY 09/04/21 09/04/21 isosorbide mononitrate 60 mg PO DAILY 09/04/21 09/04/21 pantoprazole 20 mg PO DAILY 09/04/21 09/04/21 ramelteon 8 mg PO HS PRN 09/04/21 09/04/21 Allergies Allergy/AdvReac Type Severity Reaction Status Date / Time amoxicillin Allergy Intermediate Unknown Verified 09/04/21 18:16 Penicillins Allergy Unknown unknown Verified 09/04/21 18:16 Iodine and Iodide Containing AdvReac Intermediate Itching Verified 09/04/21 18:16 Produc prednisone AdvReac Unknown Unknown Verified 09/04/21 18:16 Radiographic Dyes/Iodine Allergy Intermediate itching, Uncoded 09/04/21 18:16 weakness of lower limbs Review of Systems Review of Systems: All systems reviewed & are unremarkable except as noted in HPI and below Constitutional: Constitutional: Reports as per HPI and Reports no additional constitutional complaints Eyes: Eyes: Reports as per HPI and Reports no additional eye complaints ENT: Reports system reviewed and no additional complaints, except as documented and Reports as per HPI Cardiovascular: Cardiovascular: Reports as per HPI, Reports no additional cardiovascular complaints and Reports rapid heart rate Respiratory: Respiratory: Reports as per HPI and Reports no additional respiratory complaints Gastrointestinal: Gastrointestinal: Reports as per HPI and Reports no additional gastrointestinal complaints Genitourinary: Genitourinary: Reports no additional male genitourinary complaints and Reports as per HPI Musculoskeletal: Musculoskeletal: Reports no additional musculoskeletal complaints and Reports as per HPI Integumentary/Breasts: Skin/Breast: Reports system reviewed and no additional complaints, except as docu and Reports as per HPI Neurologic: Reports system reviewed and no additional complaints, except as documented and Reports as per HPI Psychiatric: Psychiatric: Reports no additional psychiatric complaints and Reports anxiety Endocrine: Endocrine: Reports no additional endocrine complaints and Reports as per HPI Hematologic/Lymphatic: Hematologic/Lymphatic: Reports no additional hematologic/lymphatic complaints and Reports as per HPI Allergic/Immunologic: Allergic/Immunologic: Reports no additional allergic/immunologic complaints and Reports as per HPI [facility] Past Medical History Medical History Atrial fibrillation CAD (coronary artery disease) COPD (chronic obstructive pulmonary disease) Femoral artery stenosis GERD (gastroesophageal reflux disease) Heart disease Hematuria Hyperlipidemia Hyperte
--- NOTE | 2021-09-04 16:49 | ECG_ITS ---
Measurements Intervals [place] Rate: 114 P: 250 [place]: 250 QRS: -14 QRSD: 130 T: 108 QT: 328 QTc: 453 Interpretive Statements ATRIAL FLUTTER/TACHYCARDIA WITH RAPID VENTRICULAR RESPONSE LEFT BUNDLE BRANCH BLOCK ABNORMAL ECG Electronically Signed On 09-04-2021 17:04:17 CDT by Herman Jaimes D.O.
[2021-09-04 17:09] LABS: Basophils Absolute Auto 0.03 K/mm3 (0.00-0.10); Basophils Percent Auto 0.3 % (0.0-1.0); Eosinophils Absolute Auto 0.05 K/mm3 (0.02-0.50); Eosinophils Percent Auto 0.6 % (1.0-6.0); Hematocrit 41.7 % (37.0-46.0); Hemoglobin 14.3 g/dL (12.4-15.3); Immature Granulocyte Absolute 0.02 K/mm3 (0.00-0.00); Immature Granulocyte Percent A 0.2 % (0.0-0.0); Lymphocytes Absolute Auto 2.18 K/mm3 (1.10-4.50); Mean Corpuscular HGB Conc 34.3 g/dL (32.0-36.0); Mean Corpuscular Hemoglobin 29.2 pg (27.0-31.0); Mean Corpuscular Volume 85.1 fL (78.0-102.0); Mean Platelet Volume 11.3 fl (8.7-11.0); Monocytes Absolute Auto 0.68 K/mm3 (0.10-0.90); Monocytes Percent Auto 7.8 % (2.0-11.0); Neutrophils Absolute Auto 5.8 K/mm3 (1.7-7.2); Neutrophils Percent Auto 66.1 % (50.0-70.0); Platelet Count Result 188 K/mm3 (150-420); Red Cell Distribution Width 13.5 % (11.6-14.4); White Blood Count 8.7 K/mm3 (4.8-10.8)
[2021-09-04 17:29] LABS: Alanine Aminotransferase 30 U/L (16-63); Albumin Level 3.7 g/dL (3.4-5.0); Alkaline Phosphatase 68 U/L (46-116); Anion Gap 8 mmol/L (8-16); Aspartate Amino Transferase 23 U/L (15-37); Bilirubin,Total 0.5 mg/dL (0.00-1.00); Blood Urea Nitrogen 16 mg/dL (7-18); Calcium 8.6 mg/dL (8.5-10.1); Carbon Dioxide 26 mmol/L (21-32); Chloride 104 mmol/L (98-108); Estimated Glomerular Filt Rate 58; Glucose 133 mg/dL (70-99); NT Pro B Type Natriuretic Pept 2122 pg/mL (0-450); Osmolality Calculated 289 mOsm/kg (285-295); Potassium 4.5 mmol/L (3.5-5.1); Sodium 138 mmol/L (136-145); Total Protein 6.7 g/dL (6.4-8.2)
[2021-09-04 17:56] LABS: Magnesium 2.2 mg/dL (1.8-2.4); Thyroid Stimulating Hormone 3.19 uIU/mL (0.36-3.74); Troponin I 12.1 ng/L (0.00-60.4)
[2021-09-04] MEDS: APIXABAN 2.5 MG TABLET 5 MG PO (20:48)
[2021-09-04] MEDS: METOPROLOL TARTRATE 50 MG TAB 25 MG PO (20:51)
== END 2021-09-04 21:04 | disposition home or self-care (01) ==
PROVIDERS: Emergency Provider Internal Medicine Critical Care Medicine; PCP Family Medicine
DX: I48.92 Unspecified atrial flutter (principal); I25.10 Atherosclerotic heart disease of native coronary artery without angina pectoris; K21.9 Gastro-esophageal reflux disease without esophagitis; E78.5 Hyperlipidemia, unspecified; I10 Essential (primary) hypertension; Z87.891 Personal history of nicotine dependence
CPT/HCPCS: 36415; 71045; 80053; 83735; 83880; 84443; 84484; 85025; 93005; 99284; A9270

== ENCOUNTER 2021-09-11 15:49 | Outpatient (CLI) | payer MEDICARE, BC, SELFPAY ==
--- NOTE | 2021-09-11 15:54 | ECG_ITS ---
Measurements Intervals [place] Rate: 75 P: [place]: 0 QRS: -13 QRSD: 140 T: 20 QT: 433 QTc: 484 Interpretive Statements ATRIAL FLUTTER LEFT BUNDLE BRANCH BLOCK BASELINE ARTIFACT- I, II, AVR, AVL ABNORMAL ECG Electronically Signed On 09-11-2021 16:18:16 CDT by Herman Jaimes D.O.
== END 2021-09-11 15:50 | disposition home or self-care (01) ==
LOC: CHSCARD 15:54
PROVIDERS: PCP Family Medicine; Visit Provider Family Medicine
DX: I48.91 Unspecified atrial fibrillation (principal)
CPT/HCPCS: 93005

== ENCOUNTER 2021-10-10 14:18 | Outpatient (CLI) | payer MEDICARE, SELFPAY ==
[2021-10-10 14:40] LABS: Hematocrit 40.6 % (37.0-46.0); Hemoglobin 13.5 g/dL (12.4-15.3); Mean Corpuscular HGB Conc 33.3 g/dL (32.0-36.0); Mean Corpuscular Hemoglobin 28.7 pg (27.0-31.0); Mean Corpuscular Volume 86.4 fL (78.0-102.0); Mean Platelet Volume 11.2 fl (8.7-11.0); Platelet Count Result 178 K/mm3 (150-420); Red Cell Distribution Width 13.5 % (11.6-14.4); White Blood Count 8.1 K/mm3 (4.8-10.8)
[2021-10-10 15:01] LABS: Alanine Aminotransferase 29 U/L (16-63); Albumin Level 3.7 g/dL (3.4-5.0); Alkaline Phosphatase 66 U/L (46-116); Anion Gap 6 mmol/L (8-16); Aspartate Amino Transferase 21 U/L (15-37); Bilirubin,Total 0.6 mg/dL (0.00-1.00); Blood Urea Nitrogen 14 mg/dL (7-18); Calcium 8.8 mg/dL (8.5-10.1); Carbon Dioxide 29 mmol/L (21-32); Chloride 103 mmol/L (98-108); Estimated Glomerular Filt Rate > 60; Glucose 105 mg/dL (70-99); Lipase 79 U/L (73-393); Osmolality Calculated 286 mOsm/kg (285-295); Potassium 4.2 mmol/L (3.5-5.1); Sodium 138 mmol/L (136-145); Total Protein 7.3 g/dL (6.4-8.2)
[2021-10-13 23:56] LABS: H pylori, Urea Breath NOT DETECTED (NOT DETECTED)
== END 2021-10-10 14:19 | disposition home or self-care (01) ==
LOC: CHSLAB 14:21
PROVIDERS: PCP Family Medicine; Visit Provider Family Medicine
DX: K21.9 Gastro-esophageal reflux disease without esophagitis (principal); R10.9 Unspecified abdominal pain
CPT/HCPCS: 36415; 80053; 83013; 83690; 85027

== ENCOUNTER 2021-10-11 09:49 | Outpatient (CLI) | payer MEDICARE, BC, SELFPAY ==
--- NOTE | ~2021-10-11 | US_ITS ---
US abdomen limited INDICATION: Abdomen pain PROCEDURE: Realtime right upper abdominal ultrasound. COMPARISON: No prior studies for comparison. FINDINGS: The pancreas is normal without focal mass or pancreatic ductal dilation. Liver echotexture is normal. There is a cyst in the right hepatic lobe measuring 9 mm. There is normal directional fl ow in the portal vein. Gallbladder is surgically absent. Common bile duct measures 4.9 mm. No sonographic Mcmahon's sign. IMPRESSION: 1: Liver cyst measuring 9 mm. 2: Status post cholecystectomy. Reviewed, dictated and finalized at location A.
== END 2021-10-11 09:50 | disposition home or self-care (01) ==
LOC: CHSIMG 09:51
PROVIDERS: PCP Family Medicine; Visit Provider Family Medicine
DX: R10.9 Unspecified abdominal pain (principal)
CPT/HCPCS: 76705

== ENCOUNTER 2021-10-30 10:50 | Outpatient (CLI) | payer MEDICARE, SELFPAY ==
[2021-10-30 11:26] LABS: Add Urine Microscopic? YES; Appearance Urine Clear (Clear); Bilirubin Urine Negative (Negative); Blood Urine 1+ (Negative); Color Urine Yellow (Yellow); Glucose Urine UA Negative (Negative); Ketones Urine Negative (Negative); Leukocyte Esterase Ur Negative LEU/UL (Negative); Nitrate Urine Negative (Negative); Protein Urine Negative (Negative); Urobilinogen Urine 0.2 mg/dL (0.2-1.0); pH Urine 5.5 (5.0-8.0)
[2021-10-30 11:32] LABS: Bacteria Urine Trace /hpf; Mucus Urine Few /lpf; RBC Urine 0-2 /hpf (0-2); Squamous Epithelial Cell Urine Few /hpf (Few); WBC Urine None seen /hpf (0-3)
== END 2021-10-30 10:51 | disposition home or self-care (01) ==
LOC: CHSLAB 10:54
PROVIDERS: PCP Family Medicine; Visit Provider Family Medicine
DX: R30.0 Dysuria (principal)
CPT/HCPCS: 81001; 87086; 87088

== ENCOUNTER 2021-11-05 07:27 | Emergency (ER) | payer MEDICARE, BC, SELFPAY ==
[2021-11-05] VITALS (25 sets, daily range): BP systolic 188–211; BP diastolic 58–78; PULSE 43–70; RESP 11–22; TEMP 36.8; O2SAT 100
--- NOTE | ~2021-11-05 | CT_ITS ---
EXAMINATION: CT abdomen pelvis wo con DATE: 11/05/2021 08:47 INDICATION: Abdominal pain, beneath left and right ribs TECHNIQUE: Computed tomography (CT) of the abdomen and pelvis was performed without intravenous contr ast. Automated exposure control and iterative reconstruction technique were employed. Exam dose: 536 .58 mGy-cm total exam DLP. COMPARISON: 05/24/2019 CT abdomen pelvis FINDINGS: There is a chronic prominent discoid scarring in the lateral basilar right lower lobe. Anot her chronic linear scar is noted in the posterior right lower lobe. Mild chronic discoid scarring in the posterior lateral left lower lobe. These are stable since 05/24/2019. Status post post sternotomy. Heart size is within normal limits. No pericardial effusion. Status post cholecystectomy. Stable approximately 9 mm medial segment left hepatic cyst, unchanged si nce 05/24/2019. Normal splenic size. No pancreatic mass lesion. No bile duct or pancreatic duct dilatation. Normal morphology of the adrenal glands. No renal mass lesion is evident on this limited noncontrast examination there are bilateral renal art vishnu calcifications. There is prominent calcification of the abdominal aorta, celiac and superior mese nteric arteries. Right common/external iliac artery endovascular stent. There is extensive calcification of the iliac and femoral arteries. The urinary bladder appears normal. Mild prostate enlargement. No bowel obstruction, bowel wall thickening, pneumatosis or intraperitoneal free air. There is no john dence of appendicitis. Small fat-containing umbilical hernia. Moderately severe degenerative disc disease L3-4 and L5-S1. Bilateral hip osteoarthritis. No suspicio us osteolytic or osteoblastic lesions are noted. 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 Reviewed, dictated and finalized at [facility]. 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
--- NOTE | 2021-11-05 07:57 | ED.GENADULT ---
HPI - General Adult General Chief complaint: Recheck/Abnormal Lab/Rx Stated complaint: htn/conde History of Present Illness HPI narrative: 86-year-old male brought in by ambulance secondary to hypertension. He is accompanied by his son. He has a longstanding history of hypertension and he I just know when his blood pressure is running high. He had that feeling yesterday evening his blood pressure was running high with a systolic blood pressure over 200. His batch unloader told him in the past that this happens he could take an extra amlodipine or nitroglycerin. He took a nitroglycerin and his blood pressure came down very minimally. When he woke up today he continued to have that feeling subsequently 911 was called. Denies any chest pain or shortness of breath. He has no problems with his vision. He has no focal neurologic type symptoms. He does have a history of coronary artery disease having undergone a four-vessel coronary artery bypass grafting. He is also been complaining of abdominal pain and has been seen by And is scheduled to have an upper and lower endoscopy. He also has a CT of his abdomen and pelvis scheduled for later in this week. Denies any nausea vomiting. He has been having some dysuria lately. States that was checked recently and told it was fine. Related Data Home Medications Medication Instructions Recorded Confirmed olopatadine 0.2 % eye drops 1 drp ophthalmic (eye) DAILY 05/24/19 10/30/21 potassium chloride 10 mEq 20 meq PO BID 05/24/19 10/30/21 tablet,extended release(part/cryst) tamsulosin 0.4 mg capsule 0.4 mg PO BID 01/29/21 10/30/21 furosemide 20 mg tablet 20 mg PO DAILY 09/04/21 10/30/21 isosorbide mononitrate 60 mg 60 mg PO DAILY 09/04/21 10/30/21 tablet,extended release 24 hr ramelteon 8 mg tablet 8 mg PO HS PRN Insomnia 09/04/21 10/30/21 metoprolol tartrate 50 mg tablet 25 mg PO BID 09/11/21 10/30/21 sertraline 25 mg tablet (Zoloft) 50 mg PO DAILY 09/11/21 10/30/21 acetaminophen 650 mg tablet 650 mg PO Q4H PRN Pain 10/30/21 10/30/21 fexofenadine 180 mg tablet 180 mg PO DAILY 10/30/21 10/30/21 nitroglycerin 0.4 mg sublingual See Rx Instructions .Route 10/30/21 10/30/21 tablet .COMPLEX PRN Chest Pain sucralfate 100 mg/mL oral 10 ml PO TID 10/30/21 10/30/21 suspension Allergies Allergy/AdvReac Type Severity Reaction Status Date / Time amoxicillin Allergy Intermediate Unknown Verified 11/05/21 07:33 Iodine and Iodide Containing AdvReac Intermediate Itching Verified 11/05/21 07:33 Produc prednisone AdvReac Unknown Unknown Verified 11/05/21 07:33 Radiographic Dyes/Iodine Allergy Intermediate itching, Uncoded 11/05/21 07:33 weakness of lower limbs Review of Systems Review of Systems: CONSTITUTIONAL: Denies fever, chills, or sweats. EYES: Denies visual changes, redness, or discharge. ENT: Denies rhinorrhea, congestion, sore throat, or otalgia. CARDIOVASCULAR: Denies chest pain, palpitations, or edema. RESPIRATORY: Denies cough or dyspnea. GASTROINTESTINAL: Having some intermittent bilateral upper abdominal pain but no associated nausea, vomiting, or diarrhea. GENITOURINARY: Denies dysuria or hematuria. SKIN: Denies rash or itching. MUSCULOSKELETAL: Denies back pain, joint pain, or myalgia. NEUROLOGIC: Denies headache, numbness, or weakness. PSYCHIATRIC: Denies anxiety or depression. [facility] Past Medical History Medical History Atrial fibrillation CAD (coronary artery disease) COPD (chronic obstructive pulmonary disease) Femoral artery stenosis GERD (gastroesophageal reflux disease) Heart disease Hematuria Hyperlipidemia Hypertension Low folate Myocardial infarct 1989 Osteoarthritis Overweight Surgical History Surgical History History of cholecystectomy History of quadruple bypass Hx of cholecystectomy S/P CABG x 4 Family History Family History
--- NOTE | 2021-11-05 08:34 | ECG_ITS ---
Measurements Intervals [place] Rate: 46 P: 9 KS: 257 QRS: -28 QRSD: 145 T: 17 QT: 479 QTc: 420 Interpretive Statements SINUS BRADYCARDIA WITH FIRST DEGREE AV BLOCK LEFT BUNDLE BRANCH BLOCK ABNORMAL ECG Electronically Signed On 11-05-2021 8:54:09 CDT by Herman Jaimes D.O.
[2021-11-05 09:36] LABS: Basophils Percent Auto 0.3 % (0.2-1.2); Eosinophils Percent Auto 0.5 % (0-4.4); Hematocrit 40.1 % (42.0-52.0); Hemoglobin 13.4 g/dL (14.0-18.0); Immature Granulocyte Absolute 0.03 K/mm3 (0.00-0.031); Immature Granulocyte Percent A 0.4 % (0-0.5); Lymphocytes Absolute Auto 1.25 K/mm3 (0.9-3.2); Lymphocytes Percent Auto 15.7 % (18.3-44.2); Mean Corpuscular HGB Conc 33.4 g/dl (32-36); Mean Corpuscular Hemoglobin 28.6 pg (26-34); Mean Corpuscular Volume 85.7 fl (80-100); Mean Platelet Volume 11.3 fl (7.4-10.4); Monocytes Absolute Auto 0.7 K/mm3 (0.1-0.6); Monocytes Percent Auto 8.2 % (2.6-8.5); Neutrophils Percent Auto 74.9 % (45.5-73.1); Platelet Count Result 150 k/mm3 (150-375); Red Blood Count 4.68 M/mm3 (4.6-6.20); Red Cell Distribution Width 14.1 % (11.5-14.5); White Blood Count 7.9 K/mm3 (4.5-10.0)
[2021-11-05 09:41] LABS: Appearance Urine Clear (Clear); Bilirubin Urine Negative (Negative); Blood Urine 1+ (Negative); Color Urine Yellow (Yellow); Glucose Urine UA Negative (Negative); Ketones Urine Negative (Negative); Leukocyte Esterase Ur Negative LEU/UL (Negative); Nitrate Urine Negative (Negative); Protein Urine Negative (Negative); Urobilinogen Urine 0.2 mg/dL (<2.0)
[2021-11-05 09:44] LABS: Alanine Aminotransferase 28 U/L (6-50); Albumin Level 4.2 g/dL (3.5-5.1); Alkaline Phosphatase 63 U/L (38-126); Anion Gap 3 mmol/L (8-16); Aspartate Amino Transferase 31 U/L (17-59); Bilirubin,Total 0.5 mg/dL (0.2-1.3); Blood Urea Nitrogen 14 mg/dL (9-20); Calcium 8.7 mg/dL (8.4-10.2); Carbon Dioxide 31 mmol/L (22-30); Chloride 103 mmol/L (98-107); Estimated CRCL calculation 55 ml/min; Estimated Glomerular Filt Rate > 60; Glucose 98 mg/dL (65-110); Potassium 4.3 mmol/L (3.4-5.0); Sodium 137 mmol/L (137-145)
[2021-11-05 09:55] LABS: Troponin I < 0.012 ng/mL (0.000-0.034)
[2021-11-05] MEDS: hydrALAZINE 10 MG TABLET PO (10:08)
[2021-11-05 10:15] LABS: Add Urine Microscopic? YES
[2021-11-05 10:25] LABS: Mucus Urine Rare /lpf; WBC Urine 0-3 /hpf
== END 2021-11-05 11:27 | disposition home or self-care (01) ==
PROVIDERS: Emergency Provider Emergency Medicine; PCP Family Medicine
DX: I11.9 Hypertensive heart disease without heart failure (principal); I25.10 Atherosclerotic heart disease of native coronary artery without angina pectoris; I48.91 Unspecified atrial fibrillation; J44.9 Chronic obstructive pulmonary disease, unspecified; E78.5 Hyperlipidemia, unspecified; I25.2 Old myocardial infarction; K21.9 Gastro-esophageal reflux disease without esophagitis; M19.90 Unspecified osteoarthritis, unspecified site; E66.3 Overweight; Z95.1 Presence of aortocoronary bypass graft; Z68.28 Body mass index [BMI] 28.0-28.9, adult; Z87.891 Personal history of nicotine dependence; Z79.01 Long term (current) use of anticoagulants; R00.1 Bradycardia, unspecified; I44.7 Left bundle-branch block, unspecified; I44.0 Atrioventricular block, first degree
CPT/HCPCS: 36415; 74176; 80053; 81001; 84484; 85025; 93005; 99284; A9270

== ENCOUNTER 2021-11-10 05:12 | Observation (INO) | payer MEDICARE, BC, SELFPAY ==
[2021-11-10] VITALS (21 sets, daily range): BP systolic 163–206; BP diastolic 54–116; PULSE 46–65; RESP 12–20; TEMP 36.3–36.6; O2SAT 100; BMI 28.1
--- NOTE | ~2021-11-10 | XR_ITS ---
XR chest 2V DATE: 11/10/2021 06:01 INDICATION: Chest pain. History of myocardial infarction. TECHNIQUE: PA and lateral views COMPARISON: 09/04/2021 portable AP chest 02/27/2021 2 view chest FINDINGS: Status post sternotomy and coronary bypass graft surgery. Heart size is within normal limit s. Suggestion of left coronary artery stent. There is thoracic and abdominal aortic calcification. Chronic scarring, right mid to lower lung, stable since 02/27/2021. No pulmonary infiltrate or consoli dation, pleural effusion or pulmonary vascular congestion or pneumothorax. IMPRESSION: Chronic mid to lower right lung scarring No active cardiopulmonary disease or significant change since 02/27/2021 Reviewed, dictated and finalized at [facility].
--- NOTE | 2021-11-10 05:25 | ECG_ITS ---
Measurements Intervals [place] Rate: 51 P: 15 OR: 264 QRS: -30 QRSD: 143 T: 93 QT: 427 QTc: 395 Interpretive Statements SINUS BRADYCARDIA WITH FIRST DEGREE AV BLOCK LEFT BUNDLE BRANCH BLOCK BASELINE ARTIFACT- V1 ABNORMAL ECG Electronically Signed On 11-10-2021 10:04:23 CDT by Herman Jaimes D.O.
[2021-11-10 05:33] LABS: Basophils Percent Auto 0.3 % (0.2-1.2); Eosinophils Absolute Auto 0.1 K/mm3 (0-0.3); Eosinophils Percent Auto 0.7 % (0-4.4); Hematocrit 38.8 % (42.0-52.0); Hemoglobin 13.2 g/dL (14.0-18.0); Immature Granulocyte Absolute 0.02 K/mm3 (0.00-0.031); Immature Granulocyte Percent A 0.3 % (0-0.5); Lymphocytes Absolute Auto 1.55 K/mm3 (0.9-3.2); Lymphocytes Percent Auto 20.3 % (18.3-44.2); Mean Corpuscular Hemoglobin 28.8 pg (26-34); Mean Corpuscular Volume 84.7 fl (80-100); Mean Platelet Volume 12.1 fl (7.4-10.4); Monocytes Absolute Auto 0.7 K/mm3 (0.1-0.6); Monocytes Percent Auto 9.7 % (2.6-8.5); Neutrophils Absolute Auto 5.3 K/mm3 (1.3-6.7); Neutrophils Percent Auto 68.7 % (45.5-73.1); Platelet Count Result 208 k/mm3 (150-375); Red Blood Count 4.58 M/mm3 (4.6-6.20); Red Cell Distribution Width 14.1 % (11.5-14.5); White Blood Count 7.7 K/mm3 (4.5-10.0)
--- NOTE | 2021-11-10 05:39 | ED.GENADULT ---
HPI - General Adult General Chief complaint: Chest Pain Stated complaint: CHEST PAIN Time Seen by Provider: 11/10/21 05:30 History of Present Illness HPI narrative: Patient 86-year-old gentleman who presents to the emergency department with chief complaint of chest pain. Patient reports that he has had an WI before in the past and also has had reflux. Patient states this evening he started having a tightness or fullness in his chest. Patient states the pain is almost completely resolved at this time reports that he has had no radiation to his arms but did have a little bit of a headache patient states with his previous WI he had radiation to both of his arms and did not have that today. Related Data Home Medications Medication Instructions Recorded Confirmed olopatadine 0.2 % eye drops 1 drp ophthalmic (eye) DAILY 05/24/19 10/30/21 potassium chloride 10 mEq 20 meq PO BID 05/24/19 10/30/21 tablet,extended release(part/cryst) tamsulosin 0.4 mg capsule 0.4 mg PO BID 01/29/21 10/30/21 furosemide 20 mg tablet 20 mg PO DAILY 09/04/21 10/30/21 isosorbide mononitrate 60 mg 60 mg PO DAILY 09/04/21 10/30/21 tablet,extended release 24 hr ramelteon 8 mg tablet 8 mg PO HS PRN Insomnia 09/04/21 10/30/21 metoprolol tartrate 50 mg tablet 25 mg PO BID 09/11/21 10/30/21 sertraline 25 mg tablet (Zoloft) 50 mg PO DAILY 09/11/21 10/30/21 acetaminophen 650 mg tablet 650 mg PO Q4H PRN Pain 10/30/21 10/30/21 fexofenadine 180 mg tablet 180 mg PO DAILY 10/30/21 10/30/21 nitroglycerin 0.4 mg sublingual See Rx Instructions .Route 10/30/21 10/30/21 tablet .COMPLEX PRN Chest Pain sucralfate 100 mg/mL oral 10 ml PO TID 10/30/21 10/30/21 suspension Allergies Allergy/AdvReac Type Severity Reaction Status Date / Time amoxicillin Allergy Intermediate Unknown Verified 11/10/21 05:24 Iodine and Iodide Containing AdvReac Intermediate Itching Verified 11/10/21 05:24 Produc prednisone AdvReac Unknown Unknown Verified 11/10/21 05:24 Radiographic Dyes/Iodine Allergy Intermediate itching, Uncoded 11/10/21 05:24 weakness of lower limbs Review of Systems Review of Systems: A 10 system review of systems was completed on the patient and is negative except for what is stated in the HPI. Nursing and ancillary documentation was reviewed. [facility] Past Medical History Medical History Atrial fibrillation CAD (coronary artery disease) COPD (chronic obstructive pulmonary disease) Femoral artery stenosis GERD (gastroesophageal reflux disease) Heart disease Hematuria Hyperlipidemia Hypertension Low folate Myocardial infarct 1988 Osteoarthritis Overweight Surgical History Surgical History History of cholecystectomy History of quadruple bypass Hx of cholecystectomy S/P CABG x 4 Family History Family History Mother , Age 80 Heart disease Father , Age 85. Cause of Pneumonia. No problems noted. Mother , Age 80 Family history of coronary artery disease Father , Age 85. Cause of Pneumonia. No problems noted. Social History Social History Smoking packs per day: 1 Smoking cigarettes per day: 20.0 Years smoked: 30 Smoking pack-years: 30.00 Smoking status: Former smoker Tobacco type: cigarettes Additional smoking assessment comments: Quit 1988 Alcohol intake: current Alcohol use details: rarely drinks alcohol,very occasionally Substance use: never Substance use type: does not use Additional living arrangements comments: . 4 Adult Children. 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 Gender identity (if verbalized by the patient): Male
[2021-11-10] MEDS: MAG HYDROX/AL HYDROX/SIMETH 30 ML UDC PO (05:48)
[2021-11-10 06:01] LABS: INR 1.3; Prothrombin Time 15.3 Seconds (11.1-14.7)
[2021-11-10 06:02] LABS: Partial Thromboplastin Time 32.8 SECONDS (22.3-36.8)
[2021-11-10 06:03] LABS: Alanine Aminotransferase 23 U/L (6-50); Albumin Level 4.2 g/dL (3.5-5.1); Alkaline Phosphatase 59 U/L (38-126); Anion Gap 5 mmol/L (8-16); Aspartate Amino Transferase 28 U/L (17-59); Bilirubin,Total 0.4 mg/dL (0.2-1.3); Blood Urea Nitrogen 13 mg/dL (9-20); Calcium 8.8 mg/dL (8.4-10.2); Carbon Dioxide 30 mmol/L (22-30); Chloride 102 mmol/L (98-107); Estimated Glomerular Filt Rate > 60; Glucose 102 mg/dL (65-110); Lipase 92 U/L (23-300); Potassium 4.1 mmol/L (3.4-5.0); Sodium 137 mmol/L (137-145)
[2021-11-10 06:14] LABS: Troponin I < 0.012 ng/mL (0.000-0.034)
--- NOTE | 2021-11-10 07:11 | PC.NURSE ---
Patient report received from MJ Mahoney. All questions answered and care of patient assumed.
[2021-11-10 07:12] LABS: Influenza A QL RT-PCR Negative (Negative); Influenza B QL RT-PCR Negative (Negative); SARS-CoV-2 RNA PCR Negative
--- NOTE | 2021-11-10 07:27 | PC.NURSE ---
Patient resting quietly in stretcher with call light in reach. He denies CP at this time. He does report a mild MURCIA, however. Patient noted to have a systolic BP of 190s. He reports that he takes hydralizine and metoprolol at home. His HR is noted to be in the high 40's - low 50's so I explaind to hime that we would not give him the metoprolol. MD made aware and orders received.
[2021-11-10] MEDS: ACETAMINOPHEN 500 MG TABLET 1000 MG PO (07:39)
[2021-11-10] MEDS: hydrALAZINE 10 MG TABLET PO (07:40)
--- NOTE | 2021-11-10 08:40 | PC.NURSE ---
This patient, Celestino Rodriguez, was admitted to IMU Room 200-01. Patient/family oriented to hospital policies and general routines including ID bracelet, bed and alarms, visiting hours, pain management, procedures, bathroom and other care routines, personal items, smoking policy, room service/diet, and visiting hours. Information on how to activate the Rapid Response Team has been discussed. Patient/Family are encouraged to report perceived risks to care and to ask questions if they do not understand what they are told or what they should do.
[2021-11-10 08:43] LABS: Troponin I < 0.012 ng/mL (0.000-0.034)
--- NOTE | 2021-11-10 10:58 | PM.IMHP ---
H&P: HPI History of Present Illness Date/Time: 11/10/21 10:58 Chief Complaint: Patient 86-year-old gentleman who presents to the emergency department with chief complaint of chest pain.? Patient reports that he has had an CA before in the past and also has had reflux.? Patient states this evening he started having a tightness or fullness in his chest.? Patient also reports some pain. he rates the pain a 5/10 and lasted for more than an hour. Pain is about 80% better right now. No radiation of symptoms. Significant cardiac history. Troponins currently are negative. Review of Systems Review of Systems: 10 point ROS negative except as stated in HPI / Subjective PMFSH Past Medical History Medical History Atrial fibrillation CAD (coronary artery disease) COPD (chronic obstructive pulmonary disease) Femoral artery stenosis GERD (gastroesophageal reflux disease) Heart disease Hematuria Hyperlipidemia Hypertension Low folate Myocardial infarct 1988 Osteoarthritis Overweight Surgical History Surgical History History of cholecystectomy History of quadruple bypass Hx of cholecystectomy S/P CABG x 4 Family History Family History Mother , Age 80 Heart disease Father , Age 85. Cause of Pneumonia. No problems noted. Mother , Age 80 Family history of coronary artery disease Father , Age 85. Cause of Pneumonia. No problems noted. Social History Social History Smoking packs per day: 1 Smoking cigarettes per day: 20.0 Years smoked: 30 Smoking pack-years: 30.00 Smoking status: Former smoker Tobacco type: cigarettes Additional smoking assessment comments: Quit 1988 Alcohol intake: current Alcohol use details: rarely drinks alcohol,very occasionally Substance use: never Substance use type: does not use Additional living arrangements comments: . 4 Adult Children. 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 Gender identity (if verbalized by the patient): Male Spiritual care concerns: No Agree to blood products: Yes Meds Home Medications and Allergies Home Medications Medication Instructions Recorded Confirmed Type potassium chloride 10 mEq 20 meq PO Q12H 05/24/19 11/10/21 History tablet,extended release(part/cryst) tamsulosin 0.4 mg capsule 0.4 mg PO Q12H 01/29/21 11/10/21 History lactobacillus combination no.4 15 15,000 mmu cells PO DAILY #30 caps 03/15/21 11/10/21 Rx billion cell capsule (Senior Probiotic) folic acid 1 mg tablet 1 mg PO DAILY #30 tabs 08/21/21 11/10/21 Rx furosemide 20 mg tablet 20 mg PO DAILY 09/04/21 11/10/21 History isosorbide mononitrate 60 mg 60 mg PO DAILY 09/04/21 11/10/21 History tablet,extended release 24 hr ramelteon 8 mg tablet 8 mg PO HS PRN Insomnia 09/04/21 11/10/21 History metoprolol tartrate 50 mg tablet 25 mg PO Q12H 09/11/21 11/10/21 History sertraline 25 mg tablet (Zoloft) 50 mg PO DAILY 09/11/21 11/10/21 History albuterol sulfate 90 mcg/actuation See Rx Instructions .Route 10/17/21 11/10/21 Rx aerosol inhaler .COMPLEX #8.5 grams pantoprazole 40 mg tablet,delayed 40 mg PO QAM #30 tabs 10/23/21 11/10/21 Rx release acetaminophen 650 mg tablet 650 mg PO Q4H PRN Pain 10/30/21 11/10/21 History fexofenadine 180 mg tablet 180 mg PO DAILY PRN Allergy 10/30/21 11/10/21 History Symptoms nitroglycerin 0.4 mg sublingual See Rx Instructions .Route 10/30/21 11/10/21 History tablet .COMPLEX PRN Chest Pain sucralfate 100 mg/mL oral 10 ml PO TID 10/30/21 11/10/21 History suspension hydralazine 10 mg tablet 10 mg PO QID PRN Systolic blood 11/05/21 11/10/21 Rx pressure greater than 19
[2021-11-10] MEDS: ROSUVASTATIN 10 MG TABLET 20 MG PO (11:25)
[2021-11-10] MEDS: PANTOPRAZOLE 40 MG TABLET PO (11:25)
[2021-11-10] MEDS: FAMOTIDINE 20 MG TABLET 40 MG PO (11:25)
[2021-11-10] MEDS: ACIDOPHILUS/BULGARICUS CHEWABLE TABLET 1 TABLET BY MOUTH (11:25)
[2021-11-10] MEDS: SUCRALFATE SUSP 100 MG/ML 10 ML UDC 1000 MG PO (11:25)
[2021-11-10] MEDS: APIXABAN 5 MG TABLET PO (11:26)
[2021-11-10] MEDS: FOLIC ACID 1 MG TABLET PO (11:26)
[2021-11-10] MEDS: ISOSORBIDE MONONITRATE 60 MG TAB.ER.24H PO (11:26)
[2021-11-10] MEDS: TAMSULOSIN HCL 0.4 MG CAPSULE PO (11:27)
[2021-11-10] MEDS: POTASSIUM CHLORIDE 10 MEQ TABLET.ER 20 MEQ PO (11:27)
[2021-11-10] MEDS: SERTRALINE HCL 50 MG TABLET PO (11:27)
[2021-11-10] MEDS: hydrALAZINE HCL 25 MG TABLET PO (11:27)
[2021-11-10] MEDS: FUROSEMIDE 20 MG TABLET PO (11:27)
[2021-11-10 13:24] LABS: Troponin I < 0.012 ng/mL (0.000-0.034)
--- NOTE | 2021-11-10 14:29 | PM.CNCAR ---
Assessment and Plan Assessment and plan (1) Chest pain: Code(s): R07.9 - Chest pain, unspecified Status: Acute (2) CAD (coronary artery disease): Code(s): I25.10 - Atherosclerotic heart disease of [place] coronary artery without angina pectoris Status: Acute (3) Left bundle branch block: Code(s): I44.7 - Left bundle-branch block, unspecified Status: Acute Plan This is an 86-year-old man with chronic stable coronary artery disease, previous surgical and percutaneous revascularization is due for a described above. We have an excellent note from his primary job setter that indicates he has left bundle branch block is a chronic finding. In the face of his symptoms his troponin levels are normal x3 sets. He is asymptomatic at this time and I believe is stable enough to be discharged. He does have a murmur indicative of some aortic valve stenosis. Says that his most recent appointment with his job setter at [facility] was as recently as a month ago. I think we can assume that he is aware of this murmur. I simply told the patient that after discharge he should contact his job setter to make him aware that he spent the night here for observation but at this point I believe he is safe to be discharged and I do not think he needs to stay in this hospital for further ischemic workup. Angelito Short MD [facility] History of Present Illness History of Present Illness Consult date/time: 11/10/21 14:29 Reason For Visit: CHEST PAIN Narrative: This is a 86-year-old man, very pleasant gentleman with a longstanding history of coronary artery disease who is admitted to the hospital earlier today or I believe actually last night after experiencing some chest discomfort at his home. The patient states that in the middle of the night when he went up to go to the bathroom he began to experience some chest pain that he describes as a dull aching sensation in the all low epigastrium to low substernal region. The discomfort persisted for more than 30 minutes it was not severe but moderate in intensity was not radiating to any other location was not associated with diaphoresis or air hunger. Because of these symptoms however he alerted his son who brought him into the emergency room for evaluation. In the emergency department his ECG was found to show sinus rhythm with a left bundle branch block and had troponin levels were negative. He was not having pain any longer he was admitted to the IMU where his troponin levels have remained normal x3 sets. He is comfortable and resting in bed when I saw the patient today in the IMU. His son is visiting with him. The patient has a longstanding history of coronary artery disease. There is a relatively complete note from his established job setter, Dr. Patel follows the patient at [facility] out in [facility]. The patient has coronary disease dating back to 1998 when he underwent a multivessel bypass operation. Apparently that consisted of an XIANG graft to the LAD and 3 other grafts. His note indicates that his most recent catheterization which was in September of 2016 showed his XIANG graft to be patent, apparently no other grafts were patent. His LAD and right coronary arteries are totally closed. He had significant high-grade stenosis in his proximal circumflex as well as a ramus intermedius branch that was small. He underwent percutaneous revascularization of his circumflex with good results but at has done well since then. He is known to have a chronic left bundle branch block he also is known to have paroxysmal atrial fib/atrial flutter. There has been no evidence of a recent recurrence of either of these arrhythmias. Presumably because of his anticoagulation with apixaban his physicians have stopped his aspirin and clopidogrel within the last year or 2 according to his recollection. He is comfortable at this time does not have any complaints. He does have a history of
--- NOTE | 2021-11-10 15:07 | PM.DS ---
DS: Admitting Diagnosis Discharge Date 11/10/21 Admitting Diagnosis chest pain DS: Discharge Diagnosis Discharge Diagnosis (1) Chest pain: Code(s): R07.9 - Chest pain, unspecified Status: Acute Assessment and Plan: Troponins negative. No further orona recommended by cardiology. Ok to dc (2) Atrial fibrillation: Code(s): I48.91 - Unspecified atrial fibrillation Status: Acute Assessment and Plan: Anticoagulated. Rates controlled. (3) GERD (gastroesophageal reflux disease): Code(s): K21.9 - Gastro-esophageal reflux disease without esophagitis Status: Acute Assessment and Plan: Continue home medications. (4) CAD (coronary artery disease): Code(s): I25.10 - Atherosclerotic heart disease of [place] coronary artery without angina pectoris Status: Acute DS: Summary Hospital Course Hospital Course: see dc plan and diagnosis Time Spent with Patient Time attestation: Total time spent providing and/or coordinating discharge services: Exam Narrative: General: alert and oriented Psych: appropriate mood nad affect Eyes: PERRLA Neck: Trachea midline, no new lesions Skin: no changes Lungs: CTA Cardiac: Normal S1,S2, no MGR ABD: soft, nd, nt, nbs Ext: no new lesions, no cce Vasc: Pulses intact DS: Data Data Completed and Pending Labs on day of discharge: Labs from last 24 hours 11/10/21 11/10/21 11/10/21 12:04 08:17 06:05 WBC RBC Hgb Hct MCV MCH MCHC RDW Plt Count MPV Immature Gran % (Auto) Neut % (Auto) Lymph % (Auto) [place] % (Auto) Eos % (Auto) Baso % (Auto) Lymph # (Auto) [place] # (Auto) Eos # (Auto) Baso # (Auto) Abs Immat Gran (auto) Absolute Neuts (auto) Absolute Nucleated RBC Nucleated RBC % PT INR APTT Sodium Potassium Chloride Carbon Dioxide Anion Gap BUN Creatinine Estim Creat Clear Calc Estimated GFR Glucose Calcium Total Bilirubin AST ALT Alkaline Phosphatase Troponin I < 0.012 < 0.012 Total Protein Albumin Lipase Influenza A (RT-PCR) Negative Influenza B (RT-PCR) Negative SARS-CoV-2 RNA (RT-PCR) Negative 11/10/21 11/10/21 11/10/21 05:47 05:47 05:27 WBC 7.7 RBC 4.58 L Hgb 13.2 L Hct 38.8 L MCV 84.7 MCH 28.8 MCHC 34.0 RDW 14.1 Plt Count 208 MPV 12.1 H Immature Gran % (Auto) 0.3 Neut % (Auto) 68.7 Lymph % (Auto) 20.3 Blanco % (Auto) 9.7 H Eos % (Auto) 0.7 Baso % (Auto) 0.3 Lymph # (Auto) 1.55 [place] # (Auto) 0.7 H Eos # (Auto) 0.1 Baso # (Auto) 0.0 Abs Immat Gran (auto) 0.02 Absolute Neuts (auto) 5.3 Absolute Nucleated RBC 0.0 Nucleated RBC % 0.0 PT 15.3 H INR 1.3 APTT 32.8 Sodium 137 Potassium 4.1 Chloride 102 Carbon Dioxide 30 Anion Gap 5 L BUN 13 Creatinine 0.90 Estim Creat Clear Calc Not Reportable Estimated GFR > 60 Glucose 102 Calcium 8.8 Total Bilirubin 0.4 AST 28 ALT 23 Alkaline Phosphatase 59 Troponin I < 0.012 Total Protein 7.0 Albumin 4.2 Lipase 92 Influenza A (RT-PCR) Influenza B (RT-PCR) SARS-CoV-2 RNA (RT-PCR) Discharge Plan Discharge Attending physician on discharge: Angelito Mo Consulting providers: Angelito Short Discharging Clinician: Angelito Mo Patient Disposition: Home, Self-Care Activity: no preference Diet: as tolerated Patient Instructions: Antibiotic Form, Apixaban (By mouth), Chest Pain (DC) Stand Alone Forms: General Discharge Information Follow-up/Referrals: Norbert Bhatt DO [Primary Care Provider] - Discharge Medications: Continued potassium chloride 10 mEq tablet,ER particles/crystals 20 meq PO Q12H tamsulosin 0.4 mg capsule 0.4 mg PO Q12H Rx Instructions: TAKE TWO CAPSULES BY
[2021-11-10] MEDS: ACETAMINOPHEN 325 MG TABLET 650 MG PO (15:41)
== END 2021-11-10 15:55 | disposition home or self-care (01) ==
LOC: ANHED 07:25 → ANHIMU 07:48
PROVIDERS: Admitting Provider Chiropractor; Emergency Provider Emergency Medicine; PCP Family Medicine; Visit Provider Chiropractor
DX: R07.9 Chest pain, unspecified (principal); I48.91 Unspecified atrial fibrillation; K21.9 Gastro-esophageal reflux disease without esophagitis; I25.10 Atherosclerotic heart disease of native coronary artery without angina pectoris; I44.7 Left bundle-branch block, unspecified; I44.0 Atrioventricular block, first degree; Z95.1 Presence of aortocoronary bypass graft; R00.1 Bradycardia, unspecified; I25.2 Old myocardial infarction; R01.1 Cardiac murmur, unspecified; R61 Generalized hyperhidrosis; J98.4 Other disorders of lung; R51.9 Headache, unspecified; J44.9 Chronic obstructive pulmonary disease, unspecified; E78.5 Hyperlipidemia, unspecified; I10 Essential (primary) hypertension; M19.90 Unspecified osteoarthritis, unspecified site; E66.3 Overweight; Z68.28 Body mass index [BMI] 28.0-28.9, adult; Z90.49 Acquired absence of other specified parts of digestive tract; Z20.822 Contact with and (suspected) exposure to COVID-19; Z79.01 Long term (current) use of anticoagulants; Z87.891 Personal history of nicotine dependence; Z79.51 Long term (current) use of inhaled steroids; Z79.899 Other long term (current) drug therapy
CPT/HCPCS: 36415; 71046; 80053; 83690; 84484; 85025; 85610; 85730; 87081; 87502; 87880; 93005; 99285; A9270; C9803; G0378; U0003; U0005

== ENCOUNTER 2021-11-14 07:40 | Emergency (ER) | payer MEDICARE, BC, SELFPAY ==
[2021-11-14] VITALS (7 sets, daily range): BP systolic 147–206; BP diastolic 60–92; PULSE 51–71; RESP 17–20; TEMP 36.6; O2SAT 97–100
--- NOTE | ~2021-11-14 | XR_ITS ---
EXAMINATION: XR chest 2V DATE: 11/14/2021 08:28 INDICATION: Chest pain. TECHNIQUE: Frontal and lateral views of the chest were obtained. COMPARISON: Chest 2 views 11/10/2021, CT abdomen and pelvis 11/05/2021 FINDINGS: A calcified left lung nodule is consistent with old granulomatous disease. There is mild at electasis/scarring in right mid and lower lung zones and left lower lung zone. No pleural effusion or pneumothorax. The heart size is normal. Median sternotomy wires and mediastinal surgical clips are s een, likely from prior coronary artery bypass grafting. IMPRESSION: 1. Stable mild atelectasis/scarring in right mid and lower lung zones and left lower lung zone. Reviewed, dictated and finalized at location A.
--- NOTE | 2021-11-14 07:46 | ECG_ITS ---
Measurements Intervals [place] Rate: 57 P: 23 SD: 234 QRS: -33 QRSD: 146 T: 104 QT: 407 QTc: 398 Interpretive Statements SINUS BRADYCARDIA WITH SINUS ARRHYTHMIA WITH FIRST DEGREE AV BLOCK LEFT AXIS DEVIATION LEFT BUNDLE BRANCH BLOCK BASELINE ARTIFACT- I, II, III, AVR, AVL, AVF ABNORMAL ECG Electronically Signed On 11-14-2021 22:17:01 CDT by Herman Jaimes D.O.
--- NOTE | 2021-11-14 07:50 | ED.RECABL ---
HPI - Recheck/Abnormal Lab/Rx General Chief Complaint: Recheck/Abnormal Lab/Rx Stated Complaint: HTN Time Seen by Provider: 11/14/21 07:49 History of Present Illness HPI narrative: The patient is an 86-year-old male with a history of hypertension, coronary artery disease, atrial fibrillation on anticoagulation, presenting to the emergency department for evaluation of elevated blood pressure readings. Patient reports that he awakened this morning and felt like his blood pressure was elevated when he took his blood pressure, systolics have been anywhere from 160s to 200s systolics. Patient denies any associated chest pain but does report intermittent nausea, denies this currently. No diaphoresis, chills, palpitations or shortness of breath. He denies any upper abdominal discomfort or chest pressure. He denies leg swelling or calf pain. Patient states that because his blood pressure is elevated he did use nitroglycerin and hydralazine as prescribed from his last ER visits. Patient sees Dr. Liang Patel at [facility] and is scheduled for cardiac catheterization on Friday. Related Data Home Medications Medication Instructions Recorded Confirmed potassium chloride 10 mEq 20 meq PO Q12H 05/24/19 11/10/21 tablet,extended release(part/cryst) tamsulosin 0.4 mg capsule 0.4 mg PO Q12H 01/29/21 11/10/21 furosemide 20 mg tablet 20 mg PO DAILY 09/04/21 11/10/21 isosorbide mononitrate 60 mg 60 mg PO DAILY 09/04/21 11/10/21 tablet,extended release 24 hr ramelteon 8 mg tablet 8 mg PO HS PRN Insomnia 09/04/21 11/10/21 metoprolol tartrate 50 mg tablet 25 mg PO Q12H 09/11/21 11/10/21 sertraline 25 mg tablet (Zoloft) 50 mg PO DAILY 09/11/21 11/10/21 acetaminophen 650 mg tablet 650 mg PO Q4H PRN Pain 10/30/21 11/10/21 fexofenadine 180 mg tablet 180 mg PO DAILY PRN Allergy 10/30/21 11/10/21 Symptoms nitroglycerin 0.4 mg sublingual See Rx Instructions .Route 10/30/21 11/10/21 tablet .COMPLEX PRN Chest Pain sucralfate 100 mg/mL oral 10 ml PO TID 10/30/21 11/10/21 suspension apixaban 5 mg tablet (Eliquis) 5 mg PO Q12H 11/10/21 11/10/21 famotidine 40 mg tablet 40 mg PO DAILY 11/10/21 11/10/21 hydralazine 10 mg tablet 25 mg PO TID 11/10/21 11/10/21 polyethylene glycol 3350 17 gram 17 g PO DAILY PRN Constipation 11/10/21 11/10/21 oral powder packet (Miralax) rosuvastatin 40 mg tablet 20 mg PO DAILY 11/10/21 11/10/21 Allergies Allergy/AdvReac Type Severity Reaction Status Date / Time amoxicillin Allergy Intermediate Unknown Verified 11/14/21 07:47 Iodine and Iodide Containing AdvReac Intermediate Itching Verified 11/14/21 07:47 Produc prednisone AdvReac Unknown Unknown Verified 11/14/21 07:47 Radiographic Dyes/Iodine Allergy Intermediate itching, Uncoded 11/14/21 07:47 weakness of lower limbs Review of Systems Review of Systems: CONSTITUTIONAL: Denies fever, chills, or sweats. EYES: Denies visual changes, redness, or discharge. ENT: Denies rhinorrhea, congestion, sore throat, or otalgia. CARDIOVASCULAR: Denies chest pain, palpitations, or edema. RESPIRATORY: Denies cough or dyspnea. GASTROINTESTINAL: Denies abdominal pain, reports nausea without vomiting GENITOURINARY: Denies dysuria or hematuria. SKIN: Denies rash or itching. MUSCULOSKELETAL: Denies back pain, joint pain, or myalgia. NEUROLOGIC: Denies headache, numbness, or weakness. [facility] Past Medical History Medical History Atrial fibrillation CAD (coronary artery disease) COPD (chronic obstructive pulmonary disease) Femoral artery stenosis GERD (gastroesophageal reflux disease) Heart disease Hematuria Hyperlipidemia Hypertension Low folate Myocardial infarct 1988 Osteoarthritis Overweight Surgical History Surgical History History of cholecystectomy History of quadruple bypass Hx of cholecystectomy S/P CABG x 4 Family Histor
[2021-11-14 08:03] LABS: Basophils Percent Auto 0.2 % (0.2-1.2); Eosinophils Percent Auto 0.4 % (0-4.4); Hematocrit 42.2 % (42.0-52.0); Immature Granulocyte Absolute 0.02 K/mm3 (0.00-0.031); Immature Granulocyte Percent A 0.2 % (0-0.5); Lymphocytes Absolute Auto 1.23 K/mm3 (0.9-3.2); Lymphocytes Percent Auto 15.3 % (18.3-44.2); Mean Corpuscular HGB Conc 33.2 g/dl (32-36); Mean Corpuscular Hemoglobin 28.7 pg (26-34); Mean Corpuscular Volume 86.5 fl (80-100); Mean Platelet Volume 11.4 fl (7.4-10.4); Monocytes Absolute Auto 0.8 K/mm3 (0.1-0.6); Monocytes Percent Auto 9.3 % (2.6-8.5); Neutrophils Percent Auto 74.6 % (45.5-73.1); Platelet Count Result 170 k/mm3 (150-375); Red Blood Count 4.88 M/mm3 (4.6-6.20); Red Cell Distribution Width 14.2 % (11.5-14.5); White Blood Count 8.1 K/mm3 (4.5-10.0)
[2021-11-14] MEDS: hydrALAZINE HCL 20 MG/ML VIAL 10 MG IV PUSH (08:06)
[2021-11-14] MEDS: ASPIRIN 81 MG CHEWABLE TABLET 324 MG PO (08:06)
[2021-11-14 08:17] LABS: INR 1.1; Prothrombin Time 13.3 Seconds (11.1-14.7)
[2021-11-14 08:18] LABS: Partial Thromboplastin Time 28.2 SECONDS (22.3-36.8)
[2021-11-14 08:21] LABS: Anion Gap 7 mmol/L (8-16); Blood Urea Nitrogen 15 mg/dL (9-20); Calcium 8.8 mg/dL (8.4-10.2); Carbon Dioxide 29 mmol/L (22-30); Chloride 102 mmol/L (98-107); Estimated CRCL calculation 60 ml/min; Estimated Glomerular Filt Rate > 60; Glucose 106 mg/dL (65-110); Potassium 4.1 mmol/L (3.4-5.0); Sodium 138 mmol/L (137-145)
[2021-11-14 08:23] LABS: Appearance Urine Clear (Clear); Bilirubin Urine Negative (Negative); Blood Urine Negative (Negative); Color Urine Yellow (Yellow); Glucose Urine UA Negative (Negative); Ketones Urine Negative (Negative); Leukocyte Esterase Ur Negative LEU/UL (Negative); Nitrate Urine Negative (Negative); Protein Urine Negative (Negative); Specific Grav Ur 1.015 (1.001-1.035); Urobilinogen Urine 0.2 mg/dL (<2.0); pH Urine 5.5 (5.0-9.0)
[2021-11-14 08:33] LABS: Troponin I < 0.012 ng/mL (0.000-0.034)
[2021-11-14 08:42] LABS: Add Urine Microscopic? NO
[2021-11-14 10:03] LABS: SARS-CoV-2 RNA PCR Negative
[2021-11-14 10:43] LABS: Troponin I < 0.012 ng/mL (0.000-0.034)
== END 2021-11-14 10:56 | disposition short-term general hospital (02) ==
PROVIDERS: Emergency Provider Emergency Medicine; PCP Family Medicine
DX: I16.9 Hypertensive crisis, unspecified (principal); R07.9 Chest pain, unspecified; Z20.822 Contact with and (suspected) exposure to COVID-19; I48.91 Unspecified atrial fibrillation; I25.10 Atherosclerotic heart disease of native coronary artery without angina pectoris; J44.9 Chronic obstructive pulmonary disease, unspecified; K21.9 Gastro-esophageal reflux disease without esophagitis; I25.2 Old myocardial infarction; M19.90 Unspecified osteoarthritis, unspecified site
CPT/HCPCS: 36415; 71046; 80048; 81003; 84484; 85025; 85610; 85730; 93005; 96374; 99284; 99285; A9270; C9803; J0360; U0003; U0005

== ENCOUNTER 2022-01-16 21:06 | Emergency (ER) | payer MEDICARE, BC, SELFPAY ==
[2022-01-16] VITALS (16 sets, daily range): BP systolic 170–205; BP diastolic 61–140; PULSE 49–66; RESP 11–18; TEMP 36.1; O2SAT 95–99
--- NOTE | ~2022-01-16 | XR_ITS ---
EXAMINATION: XR chest 1V portable Exam Date/Time: 01/16/2022 21:35 CDT HISTORY: chest pain Comparison: 11/14/2021. RESULT: Lines, tubes, and devices: Intact sternotomy wires. Mediastinal vascular clips. Lungs and pleura: Senescent changes. Right midlung scar. Bibasilar atelectasis/scar. Cardiomediastinal silhouette: Stable. Other: No acute osseous or upper abdominal finding. IMPRESSION: No acute cardiopulmonary process. Reviewed, dictated and finalized at location K.
--- NOTE | 2022-01-16 21:18 | ECG_ITS ---
Measurements Intervals [place] Rate: 53 P: 40 [place]: 227 QRS: -30 QRSD: 144 T: 82 QT: 452 QTc: 427 Interpretive Statements SINUS BRADYCARDIA WITH FIRST DEGREE AV BLOCK LEFT BUNDLE BRANCH BLOCK BASELINE ARTIFACT- I, III, AVR, AVL, AVF, V1 ABNORMAL ECG COMPARED TO ECG 11/14/2021 07:45:17 NO SIGNIFICANT CHANGES Electronically Signed On 01-17-2022 8:04:09 CDT by Herman Jaimes D.O.
[2022-01-16 21:35] LABS: Basophils Absolute Auto 0.04 K/mm3 (0.00-0.10); Basophils Percent Auto 0.5 % (0.0-1.0); Eosinophils Absolute Auto 0.14 K/mm3 (0.02-0.50); Eosinophils Percent Auto 1.6 % (1.0-6.0); Hemoglobin 12.6 g/dL (12.4-15.3); Immature Granulocyte Absolute 0.03 K/mm3 (0.00-0.00); Immature Granulocyte Percent A 0.4 % (0.0-0.0); Lymphocytes Absolute Auto 2.17 K/mm3 (1.10-4.50); Lymphocytes Percent Auto 25.5 % (18.0-42.0); Mean Corpuscular HGB Conc 34.1 g/dL (32.0-36.0); Mean Corpuscular Hemoglobin 29.3 pg (27.0-31.0); Mean Platelet Volume 10.7 fl (8.7-11.0); Monocytes Absolute Auto 0.91 K/mm3 (0.10-0.90); Monocytes Percent Auto 10.7 % (2.0-11.0); Neutrophils Absolute Auto 5.2 K/mm3 (1.7-7.2); Neutrophils Percent Auto 61.3 % (50.0-70.0); Platelet Count Result 170 K/mm3 (150-420); Red Cell Distribution Width 13.7 % (11.6-14.4); White Blood Count 8.5 K/mm3 (4.8-10.8)
[2022-01-16 21:53] LABS: Add Urine Microscopic? YES; Appearance Urine Clear (Clear); Bilirubin Urine Negative (Negative); Blood Urine Negative (Negative); Color Urine Light Yellow (Yellow); Glucose Urine UA Negative (Negative); Ketones Urine Negative (Negative); Leukocyte Esterase Ur Trace LEU/UL (Negative); Nitrate Urine Negative (Negative); Protein Urine Negative (Negative); Urobilinogen Urine 0.2 mg/dL (0.2-1.0); pH Urine 5.5 (5.0-8.0)
[2022-01-16 21:56] LABS: Lactic Acid Reflex 0.7 mmol/L (0.4-2.0)
[2022-01-16 21:57] LABS: Alanine Aminotransferase 27 U/L (16-63); Albumin Level 3.5 g/dL (3.4-5.0); Alkaline Phosphatase 57 U/L (46-116); Anion Gap 6 mmol/L (8-16); Aspartate Amino Transferase 22 U/L (15-37); Bilirubin,Total 0.4 mg/dL (0.00-1.00); Blood Urea Nitrogen 14 mg/dL (7-18); Calcium 8.2 mg/dL (8.5-10.1); Carbon Dioxide 29 mmol/L (21-32); Chloride 97 mmol/L (98-108); Estimated Glomerular Filt Rate > 60; Glucose 98 mg/dL (70-99); Osmolality Calculated 274 mOsm/kg (285-295); Potassium 3.9 mmol/L (3.5-5.1); Sodium 132 mmol/L (136-145); Total Protein 6.3 g/dL (6.4-8.2)
[2022-01-16 22:01] LABS: Bacteria Urine Trace /hpf; RBC Urine 0-2 /hpf (0-2); WBC Urine 0-3 /hpf (0-3)
[2022-01-16 22:18] LABS: NT Pro B Type Natriuretic Pept 445 pg/mL (0-450)
--- NOTE | 2022-01-16 22:43 | ED.CHESTPAIN ---
HPI - Chest Pain General Chief Complaint: Chest Pain Stated Complaint: ambulance Time Seen by Provider: 01/16/22 21:10 Source: patient, EMS and RN notes reviewed Mode of arrival: EMS Limitations: no limitations History of Present Illness MD complaint: other (mild chest pressure with bilateral upper limb tingling this PM.) Pertinent past history: coronary artery disease Onset (ago): hour(s) (8) Timing of current episode: constant Prior episodes: Yes Onset: during exertion Pain location: substernal Pain radiation: right arm and left arm Severity: mild Pain scale (0-10): 1 Quality: other (chest pressure) Relieving factors: nothing Exacerbating factors: nothing Treatment prior to arrival: aspirin Risk Factors Coronary artery disease risk factors: hyperlipidemia and hypertension Thoracic aortic dissection risk factors: longstanding hypertension Related Data Home Medications Medication Instructions Recorded Confirmed potassium chloride 10 mEq 20 meq PO Q12H 05/24/19 01/03/22 tablet,extended release(part/cryst) furosemide 20 mg tablet 20 mg PO DAILY 09/04/21 01/03/22 isosorbide mononitrate 60 mg 60 mg PO DAILY 09/04/21 01/03/22 tablet,extended release 24 hr sertraline 25 mg tablet (Zoloft) 50 mg PO DAILY 09/11/21 01/03/22 acetaminophen 650 mg tablet 650 mg PO Q4H PRN Pain 10/30/21 01/03/22 fexofenadine 180 mg tablet 180 mg PO DAILY PRN Allergy 10/30/21 01/03/22 Symptoms apixaban 5 mg tablet (Eliquis) 5 mg PO Q12H 11/10/21 01/03/22 famotidine 40 mg tablet 40 mg PO DAILY 11/10/21 01/03/22 polyethylene glycol 3350 17 gram 17 g PO DAILY PRN Constipation 11/10/21 01/03/22 oral powder packet (Miralax) aspirin 81 mg tablet,delayed 81 mg PO DAILY 11/27/21 01/03/22 release (Adult Aspirin Regimen) hydralazine 50 mg tablet 50 mg PO TID PRN 11/27/21 01/03/22 pantoprazole 40 mg tablet,delayed 20 mg PO QAM 11/27/21 01/03/22 release rosuvastatin 40 mg tablet 40 mg PO DAILY 11/27/21 01/03/22 Allergies Allergy/AdvReac Type Severity Reaction Status Date / Time amoxicillin Allergy Intermediate Unknown Verified 01/16/22 21:14 dill oil Allergy Unknown Verified 01/16/22 21:14 Iodine and Iodide Containing AdvReac Intermediate Itching Verified 01/16/22 21:14 Produc prednisone AdvReac Unknown Unknown Verified 01/16/22 21:14 Radiographic Dyes/Iodine Allergy Intermediate itching, Uncoded 01/16/22 21:14 weakness of lower limbs Review of Systems Review of Systems: All systems reviewed & are unremarkable except as noted in HPI and below Constitutional: Constitutional: Reports no additional constitutional complaints Eyes: Eyes: Reports no additional eye complaints ENT: Reports system reviewed and no additional complaints, except as documented Cardiovascular: Cardiovascular: Reports chest pain Respiratory: Respiratory: Reports no additional respiratory complaints Gastrointestinal: Gastrointestinal: Reports no additional gastrointestinal complaints Musculoskeletal: Musculoskeletal: Reports no additional musculoskeletal complaints Integumentary/Breasts: Skin/Breast: Reports system reviewed and no additional complaints, except as docu Neurologic: Reports system reviewed and no additional complaints, except as documented Psychiatric: Psychiatric: Reports no additional psychiatric complaints Endocrine: Endocrine: Reports no additional endocrine complaints Hematologic/Lymphatic: Hematologic/Lymphatic: Reports no additional hematologic/lymphatic complaints Allergic/Immunologic: Allergic/Immunologic: Reports no additional allergic/immunologic complaints [facility] Past Medical History Medical History Atrial fibrillation Sheppard esophagus CAD (coronary artery disease) COPD (chronic obstructive pulmonary disease) Femoral artery stenosis GERD (gastroesophageal reflux disease) Heart disease Hematuria Hyperlipidemia Hypertension Low folate Myocardial infar
--- NOTE | 2022-01-16 23:10 | PC.NURSE ---
ERP aware of vitals, No new orders
== END 2022-01-16 23:14 | disposition home or self-care (01) ==
PROVIDERS: Emergency Provider Emergency Medicine; PCP Family Medicine
DX: R07.89 Other chest pain (principal); I10 Essential (primary) hypertension; I48.91 Unspecified atrial fibrillation; I25.10 Atherosclerotic heart disease of native coronary artery without angina pectoris; J44.9 Chronic obstructive pulmonary disease, unspecified; K21.9 Gastro-esophageal reflux disease without esophagitis; E78.5 Hyperlipidemia, unspecified; Z87.891 Personal history of nicotine dependence
CPT/HCPCS: 36415; 71045; 80053; 81001; 83605; 83880; 84484; 85025; 93005; 99284

== ENCOUNTER 2022-01-18 10:47 | Outpatient (CLI) | payer MEDICARE, SELFPAY ==
[2022-01-18 11:51] LABS: Thyroid Stimulating Hormone Reflex 1.35 u/IU/mL (0.36-3.74)
[2022-01-29 04:53] LABS: PRA 2.69 ng/mL/h (0.25-5.82)
== END 2022-01-18 10:48 | disposition home or self-care (01) ==
LOC: CHSLAB 10:50
PROVIDERS: PCP Family Medicine; Visit Provider Nurse Practitioner Adult Health
DX: R09.89 Other specified symptoms and signs involving the circulatory and respiratory systems (principal)
CPT/HCPCS: 36415; 82088; 84244; 84443

== ENCOUNTER 2022-03-17 12:37 | Emergency (ER) | payer MEDICARE, SELFPAY ==
--- NOTE | 2022-03-17 12:51 | ECG_ITS ---
Measurements Intervals [place] Rate: 68 P: -33 [place]: 227 QRS: -24 QRSD: 137 T: 100 QT: 395 QTc: 422 Interpretive Statements SINUS RHYTHM WITH FIRST DEGREE AV BLOCK ATRIAL COUPLET LEFT BUNDLE BRANCH BLOCK ABNORMAL ECG COMPARED TO ECG 01/16/2022 21:21:58 SINUS RHYTHM NOW PRESENT Electronically Signed On 03-17-2022 17:01:30 [employer] by Herman Jaimes D.O.
[2022-03-17 12:52] VITALS: BP 118/41; PULSE 62; RESP 16; TEMP 37; O2SAT 99
--- NOTE | 2022-03-17 13:03 | ED.GENADULT ---
HPI - General Adult General Chief complaint: Dizziness Stated complaint: dizzy Time Seen by Provider: 03/17/22 12:51 History of Present Illness HPI narrative: 86-year-old male presenting to the emergency department for evaluation after having an episode of dizziness. Patient states this morning he woke up and was feeling fine and then he began having some lower abdominal cramping. Patient went and sat on the toilet and had onset of diarrhea. Patient states after the diarrhea he felt very warm and flushed. Patient states that he did check his blood pressure and it was running low. Upon arrival to the emergency department patient states that he does feel improved at this time. Patient states the abdominal cramping has resolved and denies any current abdominal pain. Patient denies any chest pain or shortness of breath. Patient does have a significant cardiac history. He had an ID at the age of 56. Patient did have a cardiac cath approximately 2 months ago at [facility] that was negative. Related Data Home Medications Medication Instructions Recorded Confirmed potassium chloride 10 mEq 20 meq PO Q12H 05/24/19 03/13/22 tablet,extended release(part/cryst) sertraline 25 mg tablet (Zoloft) 25 mg PO DAILY 09/11/21 03/13/22 fexofenadine 180 mg tablet 180 mg PO DAILY PRN Allergy 10/30/21 03/13/22 Symptoms apixaban 5 mg tablet (Eliquis) 5 mg PO Q12H 11/10/21 03/13/22 aspirin 81 mg tablet,delayed 81 mg PO DAILY 11/27/21 03/13/22 release (Adult Aspirin Regimen) hydralazine 50 mg tablet 50 mg PO TID PRN other 11/27/21 03/13/22 rosuvastatin 40 mg tablet 40 mg PO DAILY 11/27/21 03/13/22 alprazolam 0.5 mg tablet 0.5 mg PO BID PRN anxiety 03/13/22 03/13/22 baclofen 5 mg tablet 5 mg PO BID 03/13/22 03/13/22 carvedilol 6.25 mg tablet 3.125 mg PO BID 03/13/22 03/13/22 famotidine 40 mg tablet 40 mg PO DAILY 03/13/22 03/13/22 folic acid 1 mg tablet 1 mg PO DAILY 03/13/22 03/13/22 furosemide 20 mg tablet 20 mg PO DAILY 03/13/22 03/13/22 pantoprazole 40 mg tablet,delayed 40 mg PO DAILY 03/13/22 03/13/22 release simethicone 80 mg chewable tablet 80 mg PO TID 03/13/22 03/13/22 tamsulosin 0.4 mg capsule 0.8 mg PO DAILY 03/13/22 03/13/22 Allergies Allergy/AdvReac Type Severity Reaction Status Date / Time amoxicillin Allergy Intermediate Unknown Verified 02/21/22 14:55 dill oil Allergy Unknown Verified 02/21/22 14:55 Iodine and Iodide Containing AdvReac Intermediate Itching Verified 02/21/22 14:55 Produc prednisone AdvReac Unknown Unknown Verified 02/21/22 14:55 Radiographic Dyes/Iodine Allergy Intermediate itching, Uncoded 02/21/22 14:55 weakness of lower limbs Review of Systems Review of Systems: CONSTITUTIONAL: Flushed and lightheadedness EYES: Denies visual changes, redness, or discharge. ENT: Denies rhinorrhea, congestion, sore throat, or otalgia. CARDIOVASCULAR: Denies chest pain, palpitations, or edema. RESPIRATORY: Denies cough or dyspnea. GASTROINTESTINAL: Diarrhea GENITOURINARY: Denies dysuria or hematuria. SKIN: Denies rash or itching. MUSCULOSKELETAL: Denies back pain, joint pain, or myalgia. NEUROLOGIC: Denies headache, numbness, or weakness. [facility] Past Medical History Medical History (Updated 03/17/22 @ 15:52 by Hai Valdivia MD) Atrial fibrillation Sheppard esophagus CAD (coronary artery disease) COPD (chronic obstructive pulmonary disease) Femoral artery stenosis GERD (gastroesophageal reflux disease) Heart disease Hematuria Hyperlipidemia Hypertension Low folate Myocardial infarct 1988 Osteoarthritis Overweight Surgical History Surgical History History of cholecystectomy History of quadruple bypass Hx of cholecystectomy S/P CABG x 4 Family History Family History Mother , Age 80 Heart disease Father , Age 85. Cause of Pneumonia.
[2022-03-17 13:05] LABS: Basophils Percent Auto 0.2 % (0.2-1.2); Eosinophils Percent Auto 0.2 % (0-4.4); Hematocrit 42.1 % (42.0-52.0); Hemoglobin 14.2 g/dL (14.0-18.0); Immature Granulocyte Absolute 0.04 K/mm3 (0.00-0.031); Immature Granulocyte Percent A 0.3 % (0-0.5); Lymphocytes Percent Auto 6.4 % (18.3-44.2); Mean Corpuscular HGB Conc 33.7 g/dl (32-36); Mean Corpuscular Hemoglobin 29.2 pg (26-34); Mean Corpuscular Volume 86.4 fl (80-100); Mean Platelet Volume 10.8 fl (7.4-10.4); Monocytes Absolute Auto 0.6 K/mm3 (0.1-0.6); Monocytes Percent Auto 4.9 % (2.6-8.5); Platelet Count Result 180 k/mm3 (150-375); Red Blood Count 4.87 M/mm3 (4.6-6.20); Red Cell Distribution Width 13.6 % (11.5-14.5); White Blood Count 12.5 K/mm3 (4.5-10.0)
[2022-03-17 13:17] LABS: Alanine Aminotransferase 28 U/L (6-50); Albumin Level 4.3 g/dL (3.5-5.1); Alkaline Phosphatase 55 U/L (38-126); Anion Gap 8 mmol/L (8-16); Aspartate Amino Transferase 32 U/L (17-59); Bilirubin,Total 0.4 mg/dL (0.2-1.3); Blood Urea Nitrogen 19 mg/dL (9-20); Calcium 8.8 mg/dL (8.4-10.2); Carbon Dioxide 28 mmol/L (22-30); Chloride 101 mmol/L (98-107); Estimated CRCL calculation 39 ml/min; Estimated Glomerular Filt Rate 57; Glucose 132 mg/dL (65-110); Potassium 4.3 mmol/L (3.4-5.0); Sodium 137 mmol/L (137-145)
[2022-03-17] MEDS: SODIUM CHLORIDE 0.9% IV 1,000 ML 999 ML IV CONT (14:00)
[2022-03-17 14:12] VITALS: BP 112/47; PULSE 59
[2022-03-17 14:14] VITALS: BP 125/47; PULSE 60
[2022-03-17 14:15] VITALS: BP 121/48; PULSE 64
[2022-03-17 14:40] VITALS: BP 130/86; PULSE 80; RESP 16; O2SAT 98
[2022-03-17 16:10] VITALS: BP 124/66; PULSE 76; RESP 18; O2SAT 99
== END 2022-03-17 17:13 | disposition home or self-care (01) ==
PROVIDERS: Emergency Provider Emergency Medicine; PCP Family Medicine
DX: R55 Syncope and collapse (principal); I48.91 Unspecified atrial fibrillation; I25.10 Atherosclerotic heart disease of native coronary artery without angina pectoris; J44.9 Chronic obstructive pulmonary disease, unspecified; I25.2 Old myocardial infarction; E78.5 Hyperlipidemia, unspecified; I10 Essential (primary) hypertension; K21.9 Gastro-esophageal reflux disease without esophagitis; M19.90 Unspecified osteoarthritis, unspecified site; E66.3 Overweight; Z68.28 Body mass index [BMI] 28.0-28.9, adult; Z95.1 Presence of aortocoronary bypass graft; Z87.891 Personal history of nicotine dependence; Z79.01 Long term (current) use of anticoagulants; Z79.82 Long term (current) use of aspirin; I44.0 Atrioventricular block, first degree; I44.7 Left bundle-branch block, unspecified; R00.8 Other abnormalities of heart beat
CPT/HCPCS: 36415; 80053; 85025; 93005; 99283; J7030

== ENCOUNTER 2022-03-22 10:37 | Emergency (ER) | payer MEDICARE, BC, SELFPAY ==
[2022-03-22 10:40] VITALS: BP 147/56; PULSE 68; RESP 20; TEMP 36.6; O2SAT 97
[2022-03-22 12:01] LABS: Appearance Urine Cloudy (Clear); Bilirubin Urine Negative (Negative); Blood Urine 2+ (Negative); Glucose Urine UA Negative (Negative); Ketones Urine Trace (Negative); Leukocyte Esterase Ur 2+ (Negative); Nitrate Urine Negative (Negative); Protein Urine Trace (Negative); Specific Grav Ur 1.025 (1.010-1.020); Urobilinogen Urine 0.2 mg/dL (0.2-1.0)
[2022-03-22 12:07] LABS: Add Urine Microscopic? YES; Bacteria Urine 3+ /hpf; Color Urine Light Yellow (Yellow); Squamous Epithelial Cell Urine Rare /hpf (Few); WBC Clumps Urine Present /hpf; WBC Urine >75 /hpf (0-3)
--- NOTE | 2022-03-22 12:13 | ED.GENADULT ---
HPI - General Adult General Chief complaint: Urogenital-Male Stated complaint: problems with urinating Time Seen by Provider: 03/22/22 11:54 History of Present Illness HPI narrative: patient is a 86-year-old white male with history of prostate enlargement and urinary tract infections in the past complains of burning with urination for the last 3 days ago associated with urgency and voiding frequent small amounts. He denies any hematuria or back pain. He has a little bit of urinary incontinence after voiding immediately. Denies any nausea vomiting diarrhea constipation. Denies any fever cough difficulty breathing chest pain or any other pain besides his burning with urination. . Past medical history: Sheppard's esophagus he is supposed to be having a EGD March 26. Congestive heart failure hypertension coronary artery disease with ID in the past coronary artery bypass graph atrial fib on Eliquis and baby aspirin he has had aortic stents and 1 heart stent. Related Data Home Medications Medication Instructions Recorded Confirmed potassium chloride 10 mEq 20 meq PO Q12H 05/24/19 03/13/22 tablet,extended release(part/cryst) fexofenadine 180 mg tablet 180 mg PO DAILY PRN Allergy 10/30/21 03/13/22 Symptoms apixaban 5 mg tablet (Eliquis) 5 mg PO Q12H 11/10/21 03/13/22 aspirin 81 mg tablet,delayed 81 mg PO DAILY 11/27/21 03/13/22 release (Adult Aspirin Regimen) hydralazine 50 mg tablet 50 mg PO TID PRN other 11/27/21 03/13/22 rosuvastatin 40 mg tablet 40 mg PO DAILY 11/27/21 03/13/22 alprazolam 0.5 mg tablet 0.5 mg PO BID PRN anxiety 03/13/22 03/13/22 baclofen 5 mg tablet 5 mg PO BID 03/13/22 03/13/22 carvedilol 6.25 mg tablet 3.125 mg PO BID 03/13/22 03/13/22 famotidine 40 mg tablet 40 mg PO DAILY 03/13/22 03/13/22 folic acid 1 mg tablet 1 mg PO DAILY 03/13/22 03/13/22 furosemide 20 mg tablet 20 mg PO DAILY 03/13/22 03/13/22 pantoprazole 40 mg tablet,delayed 40 mg PO DAILY 11/16/22 11/16/22 release simethicone 80 mg chewable tablet 80 mg PO TID 03/13/22 03/13/22 tamsulosin 0.4 mg capsule 0.8 mg PO DAILY 03/13/22 03/13/22 lisinopril 5 mg tablet 5 mg PO DAILY 03/20/22 03/20/22 Allergies Allergy/AdvReac Type Severity Reaction Status Date / Time amoxicillin Allergy Intermediate Unknown Verified 03/20/22 07:16 dill oil Allergy Unknown Verified 03/20/22 07:16 Iodine and Iodide Containing AdvReac Intermediate Itching Verified 03/20/22 07:16 Produc prednisone AdvReac Unknown Unknown Verified 03/20/22 07:16 Radiographic Dyes/Iodine Allergy Intermediate itching, Uncoded 03/20/22 07:16 weakness of lower limbs Review of Systems Review of Systems: All systems reviewed & are unremarkable except as noted in HPI and below Constitutional: Constitutional: Reports as per HPI and Denies fever(s) Eyes: Eyes: Reports no additional eye complaints ENT: Reports system reviewed and no additional complaints, except as documented Cardiovascular: Cardiovascular: Reports no additional cardiovascular complaints Respiratory: Respiratory: Reports no additional respiratory complaints Gastrointestinal: Gastrointestinal: Reports no additional gastrointestinal complaints Genitourinary: Genitourinary: Reports no additional male genitourinary complaints and Reports as per HPI Musculoskeletal: Musculoskeletal: Reports no additional musculoskeletal complaints Integumentary/Breasts: Skin/Breast: Reports system reviewed and no additional complaints, except as docu Neurologic: Reports system reviewed and no additional complaints, except as documented PMFSH Past Medical History Medical History Atrial fibrillation Sheppard esophagus CAD (coronary artery disease) COPD (chronic obstructive pulmonary disease) Femoral artery stenosis GERD (gastroesophageal reflux disease) Heart disease Hematuria Hyperlipidemia Hypertension Low folate Myocardial infarct 1988 Osteo
[2022-03-22 12:38] VITALS: BP 146/75; PULSE 64; RESP 20; TEMP 36.9; O2SAT 97
== END 2022-03-22 12:39 | disposition home or self-care (01) ==
PROVIDERS: Emergency Provider Emergency Medicine; PCP Family Medicine
DX: N39.0 Urinary tract infection, site not specified (principal); I48.91 Unspecified atrial fibrillation; I25.10 Atherosclerotic heart disease of native coronary artery without angina pectoris; J44.9 Chronic obstructive pulmonary disease, unspecified; K21.9 Gastro-esophageal reflux disease without esophagitis; E78.5 Hyperlipidemia, unspecified; I10 Essential (primary) hypertension; Z87.891 Personal history of nicotine dependence
CPT/HCPCS: 81001; 87077; 87086; 87088; 87186; 99283

== ENCOUNTER 2022-03-26 01:24 | Day surgery (SDC) | payer MEDICARE, BC, SELFPAY ==
[2022-03-13 09:26] VITALS: BMI 27.8
[2022-03-26 09:09] VITALS: BP 188/68; PULSE 69; RESP 17; O2SAT 100; BMI 28.3
[2022-03-26] MEDS: LACTATED RINGERS 1,000 ML 150 ML IV CONT (09:33)
--- NOTE | 2022-03-26 09:44 | PM.HPGS ---
History of Present Illness History of Present Illness Consent: Risks, benefits, and alternatives have been discussed and questions answered. Patient agrees to proceed with procedure. Chief complaint: GERD, Barretts' esophagus, abdominal pain Narrative: Celestino Rodriguez is a 86 year old male here for EGD. He has GERD and Sheppard's esophagus, last EGD about 5-6 years ago on protonix and famotidine Review of Systems Constitutional: Constitutional: Denies headache(s) and Denies weakness Eyes: Eyes: Denies blurry vision ENT: Reports Normal hearing present, Denies headache(s) and Denies neck pain Cardiovascular: Cardiovascular: Denies chest pain and Denies dyspnea Respiratory: Respiratory: Denies dyspnea Gastrointestinal: Gastrointestinal: Reports no additional gastrointestinal complaints Genitourinary: Genitourinary: Denies dysuria Musculoskeletal: Musculoskeletal: Denies neck pain Integumentary/Breasts: Skin/Breast: Denies dry skin Neurologic: Reports Normal hearing present, Denies headache(s) and Denies weakness Psychiatric: Psychiatric: Denies anxiety Endocrine: Endocrine: Denies change in body appearance Hematologic/Lymphatic: Hematologic/Lymphatic: Denies easy bleeding Allergic/Immunologic: Allergic/Immunologic: Denies urticaria PMFSH Past Medical History Medical History Atrial fibrillation Sheppard esophagus CAD (coronary artery disease) COPD (chronic obstructive pulmonary disease) Femoral artery stenosis GERD (gastroesophageal reflux disease) Heart disease Hematuria Hyperlipidemia Hypertension Low folate Myocardial infarct 1988 Osteoarthritis Overweight Surgical History Surgical History History of cholecystectomy History of quadruple bypass Hx of cholecystectomy S/P CABG x 4 Family History Family History Mother , Age 80 Heart disease Father , Age 85. Cause of Pneumonia. No problems noted. Mother , Age 80 Family history of coronary artery disease Father , Age 85. Cause of Pneumonia. No problems noted. Social History Social History Smoking packs per day: 1 Smoking cigarettes per day: 20.0 Years smoked: 30 Smoking pack-years: 30.00 Smoking status: Former smoker Tobacco type: cigarettes Additional smoking assessment comments: Quit 1988 Alcohol intake: current Alcohol use details: rarely drinks alcohol,very occasionally Substance use: never Substance use type: does not use Living arrangements: alone Additional living arrangements comments: . 4 Adult Children. 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 Gender identity (if verbalized by the patient): Male Spiritual care concerns: No Agree to blood products: Yes Meds Home Medications and Allergies Home Medications Medication Instructions Recorded Confirmed Type potassium chloride 10 mEq 20 meq PO Q12H 05/24/19 03/26/22 History tablet,extended release(part/cryst) fexofenadine 180 mg tablet 180 mg PO DAILY PRN Allergy 10/30/21 03/26/22 History Symptoms apixaban 5 mg tablet (Eliquis) 5 mg PO Q12H 11/10/21 03/26/22 History aspirin 81 mg tablet,delayed 81 mg PO DAILY 11/27/21 03/26/22 History release (Adult Aspirin Regimen) hydralazine 50 mg tablet 50 mg PO TID PRN other 11/27/21 03/26/22 History rosuvastatin 40 mg tablet 40 mg PO DAILY 11/27/21 03/26/22 History nitroglycerin 0.4 mg sublingual See Rx Instructions .Route 12/20/21 03/26/22 Rx tablet .COMPLEX #100 tabs albuterol sulfate 90 mcg/actuation See Rx Instructions .Route 12/27/21 03/26/22 Rx aerosol inhaler .COMPLEX #8.5 grams alprazolam 0.5 mg tablet 0.5 mg PO BID PRN anxiety
[2022-03-26 10:01] VITALS: BP 118/52; PULSE 73; RESP 22; O2SAT 98
[2022-03-26 10:11] VITALS: BP 95/45; PULSE 68; RESP 17; O2SAT 99
[2022-03-26 10:21] VITALS: BP 123/58; PULSE 65; RESP 19; O2SAT 99
== END 2022-03-26 10:35 | disposition home or self-care (01) ==
PROVIDERS: PCP Family Medicine; Visit Provider Internal Medicine Gastroenterology
PROC: 0DJ08ZZ Inspection of Upper Intestinal Tract, Via Natural or Artificial Opening Endoscopic (ICD-10-PCS; CPT 43235; principal; 2022-03-26 11:00)
DX: K21.9 Gastro-esophageal reflux disease without esophagitis (principal); K44.9 Diaphragmatic hernia without obstruction or gangrene; K29.70 Gastritis, unspecified, without bleeding; Z87.19 Personal history of other diseases of the digestive system; I48.91 Unspecified atrial fibrillation; I25.10 Atherosclerotic heart disease of native coronary artery without angina pectoris; J44.9 Chronic obstructive pulmonary disease, unspecified; E78.5 Hyperlipidemia, unspecified; I11.9 Hypertensive heart disease without heart failure; I25.2 Old myocardial infarction; Z95.1 Presence of aortocoronary bypass graft; Z87.891 Personal history of nicotine dependence; Z79.01 Long term (current) use of anticoagulants; Z79.82 Long term (current) use of aspirin; Z79.51 Long term (current) use of inhaled steroids
CPT/HCPCS: 43239; 88305; J2704; J7120

== ENCOUNTER 2022-04-12 02:32 | Observation (INO) | payer MEDICARE, BC, SELFPAY ==
[2022-04-12] VITALS (52 sets, daily range): BP systolic 131–188; BP diastolic 57–87; PULSE 59–116; RESP 12–26; TEMP 36–36.6; O2SAT 97–100; BMI 27.3; BMI 27.6
--- NOTE | ~2022-04-12 | XR_ITS ---
EXAMINATION: XR chest 2V DATE: 04/12/2022 03:06 INDICATION: Chest pain. TECHNIQUE: Frontal and lateral views of the chest were obtained. COMPARISON: Chest one view 01/16/2022, CT abdomen and pelvis 11/05/2021 FINDINGS: A calcified left lung nodule is consistent with old granulomatous disease. There is mild at electasis versus scarring in right mid and lower lung zones and left lower lung zone. No pleural effu nigel or pneumothorax. The heart size is normal. Median sternotomy wires and mediastinal surgical clip s are seen, likely from prior coronary artery bypass grafting. IMPRESSION: 1. Mild atelectasis versus scarring in right mid and lower lung zones and left lower lung zone. Reviewed, dictated and finalized at location A. CUTTER
--- NOTE | 2022-04-12 02:33 | ECG_ITS ---
Measurements Intervals [place] Rate: 66 P: -27 [place]: 222 QRS: -31 QRSD: 140 T: 71 QT: 404 QTc: 426 Interpretive Statements SINUS RHYTHM WITH FIRST DEGREE AV BLOCK MARKED LEFT AXIS DEVIATION [QRS AXIS < -30] LEFT BUNDLE BRANCH BLOCK [120+ ms QRS DURATION, 80+ ms Q/S IN V1/V2, 85+ ms R IN I/aVL/V5/V6] COMPARED TO ECG 03/17/2022 12:50:16 NO DIFFERENCE Electronically Signed On 04-12-2022 10:20:19 [employer] TE[employer]ER by Angelito Short M.D.
[2022-04-12 03:05] LABS: Basophils Percent Auto 0.3 % (0.2-1.2); Eosinophils Absolute Auto 0.2 K/mm3 (0-0.3); Eosinophils Percent Auto 2.5 % (0-4.4); Hemoglobin 13.6 g/dL (14.0-18.0); Immature Granulocyte Absolute 0.03 K/mm3 (0.00-0.031); Immature Granulocyte Percent A 0.3 % (0-0.5); Lymphocytes Absolute Auto 1.04 K/mm3 (0.9-3.2); Lymphocytes Percent Auto 11.2 % (18.3-44.2); Mean Corpuscular Hemoglobin 29.3 pg (26-34); Mean Corpuscular Volume 86.2 fl (80-100); Mean Platelet Volume 10.6 fl (7.4-10.4); Monocytes Absolute Auto 1.4 K/mm3 (0.1-0.6); Monocytes Percent Auto 14.5 % (2.6-8.5); Neutrophils Absolute Auto 6.6 K/mm3 (1.3-6.7); Neutrophils Percent Auto 71.2 % (45.5-73.1); Platelet Count Result 170 k/mm3 (150-375); Red Blood Count 4.64 M/mm3 (4.6-6.20); Red Cell Distribution Width 14.4 % (11.5-14.5); White Blood Count 9.3 K/mm3 (4.5-10.0)
[2022-04-12 03:18] LABS: Alanine Aminotransferase 24 U/L (6-50); Albumin Level 3.9 g/dL (3.5-5.1); Alkaline Phosphatase 55 U/L (38-126); Anion Gap 7 mmol/L (8-16); Aspartate Amino Transferase 28 U/L (17-59); Bilirubin,Total 0.5 mg/dL (0.2-1.3); Blood Urea Nitrogen 17 mg/dL (9-20); Calcium 8.3 mg/dL (8.4-10.2); Carbon Dioxide 29 mmol/L (22-30); Chloride 97 mmol/L (98-107); Estimated Glomerular Filt Rate > 60; Glucose 108 mg/dL (65-110); Lipase 161 U/L (23-300); Potassium 4.1 mmol/L (3.4-5.0); Sodium 133 mmol/L (137-145)
[2022-04-12 03:21] LABS: INR 1.2; Prothrombin Time 15.1 Seconds (11.1-14.7)
[2022-04-12 03:22] LABS: Partial Thromboplastin Time 30.9 SECONDS (22.3-36.8)
[2022-04-12 03:30] LABS: Troponin I 0.012 ng/mL (0.000-0.034)
[2022-04-12 06:57] LABS: Troponin I 0.014 ng/mL (0.000-0.034)
--- NOTE | 2022-04-12 08:41 | ED.GENADULT ---
HPI - General Adult General Chief complaint: Chest Pain Stated complaint: chest pain Time Seen by Provider: 04/12/22 07:32 History of Present Illness HPI narrative: 87-year-old male with a past medical history of A. fib, Sheppard's esophagus, CAD, COPD, PAD, GERD, HLD, HTN presents for evaluation of chest pressure which began in the middle of the night. Patient states he woke up middle the night to get some water and upon returning to bed he noticed a pressure across his anterior chest wall. Pressure was constant and nonradiating. He took a nitroglycerin tablet which provided some relief but the pressure continued. He received full dose baby aspirin in route to our hospital and at the time of my evaluation he does feel a mild chest pressure. ? Related Data Home Medications Medication Instructions Recorded Confirmed potassium chloride 10 mEq 20 meq PO Q12H 05/24/19 04/12/22 tablet,extended release(part/cryst) fexofenadine 180 mg tablet 180 mg PO DAILY PRN Allergy 10/30/21 04/12/22 Symptoms apixaban 5 mg tablet (Eliquis) 5 mg PO Q12H 11/10/21 04/12/22 aspirin 81 mg tablet,delayed 81 mg PO DAILY 11/27/21 04/12/22 release (Adult Aspirin Regimen) hydralazine 50 mg tablet 50 mg PO TID PRN other 11/27/21 04/12/22 rosuvastatin 40 mg tablet 40 mg PO DAILY 11/27/21 04/12/22 alprazolam 0.5 mg tablet 0.5 mg PO BID PRN anxiety 03/13/22 04/12/22 baclofen 5 mg tablet 5 mg PO BID 03/13/22 04/12/22 carvedilol 6.25 mg tablet 3.125 mg PO BID 03/13/22 04/12/22 famotidine 40 mg tablet 40 mg PO DAILY 03/13/22 04/12/22 furosemide 20 mg tablet 20 mg PO DAILY 03/13/22 04/12/22 pantoprazole 40 mg tablet,delayed 40 mg PO DAILY 03/13/22 04/12/22 release simethicone 80 mg chewable tablet 80 mg PO TID 03/13/22 04/12/22 tamsulosin 0.4 mg capsule 0.8 mg PO DAILY 03/13/22 04/12/22 lisinopril 5 mg tablet 5 mg PO DAILY 03/20/22 04/03/22 Allergies Allergy/AdvReac Type Severity Reaction Status Date / Time amoxicillin Allergy Intermediate Unknown Verified 04/12/22 07:34 dill oil Allergy Unknown Verified 04/12/22 07:34 Iodine and Iodide Containing AdvReac Intermediate Itching Verified 04/12/22 07:34 Produc prednisone AdvReac Unknown Unknown Verified 04/12/22 07:34 Radiographic Dyes/Iodine Allergy Intermediate itching, Uncoded 04/12/22 07:34 weakness of lower limbs Review of Systems Review of Systems: CONSTITUTIONAL: Denies fever, chills, or sweats. EYES: Denies visual changes, redness, or discharge. ENT: Denies rhinorrhea, congestion, sore throat, or otalgia. CARDIOVASCULAR: Denies chest pain, palpitations, or edema. RESPIRATORY: Denies cough or dyspnea. GASTROINTESTINAL: Denies abdominal pain, nausea, vomiting, or diarrhea. GENITOURINARY: Denies dysuria or hematuria. SKIN: Denies rash or itching. MUSCULOSKELETAL: Denies back pain, joint pain, or myalgia. NEUROLOGIC: Denies headache, numbness, or weakness. PSYCHIATRIC: Denies anxiety or depression. [facility] Past Medical History Medical History (Updated 04/12/22 @ 16:16 by Nae Chin NP) Aortic valve disease Atrial fibrillation Sheppard esophagus CAD (coronary artery disease) COPD (chronic obstructive pulmonary disease) Depression with anxiety Femoral artery stenosis GERD (gastroesophageal reflux disease) Heart disease Hematuria Hyperlipidemia Hypertension Hypertension Hypertension Low folate Myocardial infarct 1988 Osteoarthritis Overweight Surgical History Surgical History H/O heart artery stent History of cardiac cath History of cholecystectomy History of quadruple bypass Hx of cholecystectomy S/P CABG x 4 Family History Family History Mother , Age 80 Heart disease Father , Age 85. Cause of Pneumonia. No problems noted. Mother , Age 80 Family history of coronary artery disease Father Decea
[2022-04-12 09:14] LABS: Troponin I 0.012 ng/mL (0.000-0.034)
[2022-04-12] MEDS: NITROGLYCERIN OINTMENT 1 INCH DOSE TRANSDERM (09:16)
--- NOTE | 2022-04-12 10:04 | PC.NURSE ---
The pt son called the ER to let us know he was very upset that his father had to wait in the waiting room so long for a bed. His exact words were that he wanted to know who's ass he could chew on for the fact that his father who was elderly and having chest pain had to wait in the waiting room for an extended period of time. He did not give a damn how full the ER was, his father should have been pulled back. At the time there was 8 boarded patients and the waiting room had been full all night long. I assured the son that all appropriate testing and monitoring had been taken place for his father but this did not calm him down. Again, the pt son called to voice his displeasure, he was not present in the ER with his father. The pt is very nice and actually apologetic that we are as busy as we are. The pt son wishes to file a formal complaint and I made the nurse advertising project manager aware of the situation.
--- NOTE | 2022-04-12 11:30 | PC.NURSE ---
heart healthy diet lunch tray ordered
[2022-04-12 12:07] LABS: Influenza A QL RT-PCR Negative (Negative); Influenza B QL RT-PCR Negative (Negative); SARS-CoV-2 RNA PCR Negative
[2022-04-12] MEDS: ACETAMINOPHEN 325 MG TABLET 650 MG PO (13:44)
--- NOTE | 2022-04-12 14:00 | PC.NURSE ---
pt. took macrobid at 1400 wants to wait later for second dose
--- NOTE | 2022-04-12 14:53 | PM.IMHP ---
H&P: HPI History of Present Illness Date/Time: 04/12/22 14:53 Chief Complaint: Chest pain Narrative: This is a 87-year-old male patient who has an extensive cardiac history. The patient has had a history of a quadruple bypass with at least 1 cardiac stent. The patient also has a history of GERD. The patient is very hard of hearing as he left his hearing aids at home. His son came into the room and started answering some the questions. The son stated that sometimes the patient has epigastric pain and heartburn and feels that it may be heart related. The patient had a cardiac catheterization earlier this year by his stone layout marker and was told that there was no intervention necessary. Today the patient had 3 nonreactive troponins. Cardiology has seen the patient. Chest x-ray was read as mild atelectasis versus scarring in right mid and lower lung zones and left lower lung zone. A nitro patch was applied. The plan is for an echo due to severe aortic stenosis. EKG was read as sinus rhythm with first-degree AV block. The patient is being admitted to observation status and will be downgraded to [facility]. Date of service is 04/12/2022. Review of Systems Review of Systems: See HPI All systems reviewed & are unremarkable except as noted in HPI and below Constitutional: Constitutional: Reports as per HPI and Reports no additional constitutional complaints Eyes: Eyes: Reports as per HPI and Reports no additional eye complaints ENT: Reports system reviewed and no additional complaints, except as documented and Reports Normal hearing present Cardiovascular: Cardiovascular: Reports no additional cardiovascular complaints Respiratory: Respiratory: Reports no additional respiratory complaints and Reports no additional respiratory complaints Gastrointestinal: Gastrointestinal: Reports as per HPI and Reports no additional gastrointestinal complaints Musculoskeletal: Musculoskeletal: Reports no additional musculoskeletal complaints Integumentary/Breasts: Skin/Breast: Reports system reviewed and no additional complaints, except as docu and Reports as per HPI Neurologic: Reports system reviewed and no additional complaints, except as documented, Reports as per HPI and Reports Normal hearing present Psychiatric: Psychiatric: Reports no additional psychiatric complaints and Reports as per HPI Endocrine: Endocrine: Reports no additional endocrine complaints Hematologic/Lymphatic: Hematologic/Lymphatic: Reports no additional hematologic/lymphatic complaints Allergic/Immunologic: Allergic/Immunologic: Reports no additional allergic/immunologic complaints [facility] Past Medical History Medical History (Updated 04/12/22 @ 16:16 by Nae Chin NP) Aortic valve disease Atrial fibrillation Sheppard esophagus CAD (coronary artery disease) COPD (chronic obstructive pulmonary disease) Depression with anxiety Femoral artery stenosis GERD (gastroesophageal reflux disease) Heart disease Hematuria Hyperlipidemia Hypertension Hypertension Hypertension Low folate Myocardial infarct 1988 Osteoarthritis Overweight Surgical History Surgical History H/O heart artery stent History of cardiac cath History of cholecystectomy History of quadruple bypass Hx of cholecystectomy S/P CABG x 4 Family History Family History Mother , Age 80 Heart disease Father , Age 85. Cause of Pneumonia. No problems noted. Mother , Age 80 Family history of coronary artery disease Father , Age 85. Cause of Pneumonia. No problems noted. Social History Social History (Updated 04/12/22 @ 16:09 by Nae Chin NP) Social History: The patient lives alone . He has 4 children. He is . He is Retired from the [employer]. His son Herrera is the poa. 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
--- NOTE | 2022-04-12 15:06 | PC.NURSE ---
Dr. Short at bedside
--- NOTE | 2022-04-12 15:12 | PM.CNCAR ---
Assessment and Plan Assessment and plan (1) Chest pain: Code(s): R07.9 - Chest pain, unspecified Status: Acute Plan This is an 87-year-old man with longstanding coronary disease remote history of bypass grafting as well as percutaneous stenting of his left main going into the origin of his circumflex. He has been having episodes of atypical sounding non anginal chest pain for some time he was evaluated here back in October his previous general practice at that time at [facility] performed an angiogram on him which demonstrated him to be well revascularized. He comes in the hospital earlier today with similar complaints once again acute coronary syndrome has been ruled out by serial troponin levels. He does have a murmur indicating some degree of aortic valve stenosis. I would recommend since he is going to be admitted to arrange for an echocardiogram to further evaluate valve was not stenotic in 2020 according to the echo report that in the chart. Obviously that might have progressed. He does not however have to be admitted for this issue be also reasonable to allow and to go home and have this evaluation done as an outpatient since ACS has been ruled out. If he remains in the hospital I will go ahead and order an echo and we will follow-up on that. Angelito Short MD [facility] History of Present Illness History of Present Illness Consult date/time: 04/12/22 15:12 Consult reason: chest pain Reason For Visit: Unstable Angina Narrative: This is an 87-year-old man I am seeing in the emergency room to is apparently being admitted to the hospital because of some chest pain that he experienced last evening and which brought him into the emergency room earlier today. The patient states that he was at home in his usual state of relatively good health when he began to experience some dull pain across the center of the chest radiating into the right and left lateral chest castillo. The pain was not severe but more moderate in intensity. It was not associated with any nausea vomiting diaphoresis or radiation to any other location. The symptoms were evaluated in the emergency room and he says were resolved or at least improved with some nitroglycerin. He is comfortably resting now in the emergency room I and D's waiting for a bed upstairs in the hospital for further evaluation. He is a gentleman known to have coronary artery disease and was seen by me earlier this past year in consultation for a similar chest pain event. He has a history of coronary disease I believe dating back to 1998 at which time he underwent bypass grafting. He was followed by general practice at [facility] for the intervening years and after the recent admission here he decided to transition his care to our practice here at [facility]. After he came to the hospital in October she was seen by his previous general practice at [facility] who did bring him to the cardiac catheterization lab for follow-up angiographic assessment. According to the records that we have obtained the results were favorable. Apparently he has prior stent deployment in his left main going into the origin of his circumflex which remain nicely patent his internal mammary graft to his LAD is patent and apparently there is a radial artery graft at is placed from the XIANG to the obtuse marginal and then sequentially to the posterior descending artery all of which are nicely patent. He was according to the note felt to be well revascularized at that time he had quite variable blood pressure which still is the case his general practice injected his renal arteries to find the that were patent as well. The patient's electrocardiogram here shows sinus rhythm with left bundle branch block which is a chronic finding. He also has a history of paroxysmal atrial fibrillation and because of that is systemically anticoagulated with apixaban. He also had an echocardiogram done here in this hospital back in 2020 inte
--- NOTE | 2022-04-12 16:52 | PC.NURSE ---
heart healthy diet dinner tray ordered
--- NOTE | 2022-04-12 17:46 | PC.NURSE ---
PharmacyNatalie, called about po scheduled meds at 1700 & 1800; will verify and tube meds not in our pyxis.
--- NOTE | 2022-04-12 19:47 | ADMGEN ---
This patient, Celestino Rodriguez, was admitted to 3 Med Surg Room 307-01 @ 1835. Patient/family oriented to hospital policies and general routines including ID bracelet, bed and alarms, visiting hours, pain management, procedures, bathroom and other care routines, personal items, smoking policy, room service/diet, and visiting hours. Information on how to activate the Rapid Response Team has been discussed. Patient/Family are encouraged to report perceived risks to care and to ask questions if they do not understand what they are told or what they should do.
[2022-04-12] MEDS: POTASSIUM CHLORIDE 20 MEQ TABLET.ER PO (20:57)
[2022-04-12] MEDS: BACLOFEN 5 MG TABLET PO (20:58)
[2022-04-12] MEDS: NITROFURANTOIN MONOHYD MACROCR 100 MG CAP PO (20:58)
[2022-04-12] MEDS: carvediloL 3.125 MG TABLET PO (20:58)
[2022-04-12] MEDS: APIXABAN 5 MG TABLET PO (20:58)
[2022-04-12] MEDS: SIMETHICONE 80 MG TAB.CHEW PO (20:58)
[2022-04-12] MEDS: PANTOPRAZOLE SODIUM IV 40 MG VIAL IV PUSH (20:59)
[2022-04-13] VITALS (7 sets, daily range): BP systolic 111–144; BP diastolic 56–67; PULSE 58–115; RESP 18–20; TEMP 36.1–36.5; O2SAT 97–98
--- NOTE | 2022-04-13 | ECHO_ITS ---
Patient Info Name: Celestino Rodriguez Age: 87 years : 1935 Gender: Male Ht: 70 in Wt: 195 lbs BSA: 2.11 m2 HR: 76 bpm BP: 134 / 64 mmHg Heart Rhythm: Sinus Rhythm Exam Date: 04/13/2022 8:14 AM Exam Location: [facility] Patient Status: Outpatient Admit Date: 04/12/2022 Staff Ordering Physician: Angelito Short MD Director Of Psychiatry: Lula Fontanez RDCS Attending Provider: Cristina Oneil PA-C Referring Physician: Deja MELENDEZ; Exam Type: CA echo doppler color flow Study Info Indications R07.9 - Chest pain, unspecified Complete two-dimensional, color flow and Doppler transthoracic echocardiogram is performed. Summary 1. Complete two-dimensional, color flow and Doppler transthoracic echocardiogram is performed. 2. Normal left ventricular size with mild concentric hypertrophy. Good systolic function of all segments with ejection fraction of 55%. No segmental wall motion abnormalities. Grade 2 diastolic dysfunction. 3. Left atrial chamber dimension is moderately enlarged. 4. Calcified aortic root. 5. There is mild aortic valve stenosis with a peak velocity of 216 cm/s, mean gradient of 12 mmHg, and aortic valve area of 1.9 cm2. Trace aortic insufficiency. Moderate aortic valve calcification. 6. Normal sinus rhythm. Left Ventricle Left ventricular chamber dimension is normal. Left ventricular systolic function is normal, estimated at 55-60%. There is mildly increased left ventricular wall thickness. Left ventricular septal wall motion is abnormal with septal motion related to bundle branch block. The left ventricular diastolic function is grade II diastolic dysfunction. Right Ventricle Right ventricular chamber dimension is normal. Right ventricular systolic function is normal. Left Atria Left atrial chamber dimension is moderately enlarged. Right Atria Right atrial chamber dimension is normal. Aortic Valve The aortic valve is trileaflet. There is no aortic valve sclerosis. There is mild aortic valve stenosis with a peak velocity of 216 cm/s, mean gradient of 12 mmHg, and aortic valve area of 1.9 cm2. Trace aortic insufficiency. Moderate aortic valve calcification. There is trace aortic valve regurgitation. There is moderate aortic valve calcification. Pulmonic Valve The pulmonic valve is normal. There is no pulmonic valve stenosis. There is no pulmonic regurgitation. Mitral Valve The mitral valve has normal leaflets. There is no mitral valve stenosis. There is no mitral valve regurgitation. Tricuspid Valve The tricuspid valve leaflets are normal. There is no significant tricuspid valve stenosis. There is trace tricuspid valve regurgitation. No pulmonary hypertension, estimated pulmonary arterial systolic pressure is Empty. Pericardium/Pleural The pericardium appears normal. There is no pericardial effusion. Inferior Vena Cava Not well visualized inferior vena cava with >50% collapse upon inspiration consistent with Empty right atrial pressure, 10 mmHg. Aorta The aortic root size at the sinus of Valsalva is normal. The prox ascending aorta size is normal. There is mild aortic atherosclerosis. Left Ventricular Outflow Tract Name Value Normal LVOT 2D
[2022-04-13] MEDS: NITROFURANTOIN MONOHYD MACROCR 100 MG CAP PO (05:18)
[2022-04-13] MEDS: POTASSIUM CHLORIDE 20 MEQ TABLET.ER PO (05:18)
[2022-04-13 06:18] LABS: Basophils Percent Auto 0.4 % (0.2-1.2); Eosinophils Absolute Auto 0.2 K/mm3 (0-0.3); Eosinophils Percent Auto 2.9 % (0-4.4); Hematocrit 40.5 % (42.0-52.0); Hemoglobin 13.3 g/dL (14.0-18.0); Immature Granulocyte Absolute 0.03 K/mm3 (0.00-0.031); Immature Granulocyte Percent A 0.4 % (0-0.5); Lymphocytes Absolute Auto 0.81 K/mm3 (0.9-3.2); Lymphocytes Percent Auto 10.1 % (18.3-44.2); Mean Corpuscular HGB Conc 32.8 g/dl (32-36); Mean Corpuscular Hemoglobin 28.7 pg (26-34); Mean Corpuscular Volume 87.3 fl (80-100); Monocytes Absolute Auto 1.1 K/mm3 (0.1-0.6); Monocytes Percent Auto 13.4 % (2.6-8.5); Neutrophils Absolute Auto 5.8 K/mm3 (1.3-6.7); Neutrophils Percent Auto 72.8 % (45.5-73.1); Platelet Count Result 170 k/mm3 (150-375); Red Blood Count 4.64 M/mm3 (4.6-6.20); Red Cell Distribution Width 14.1 % (11.5-14.5)
[2022-04-13 06:28] LABS: Lactic Acid Reflex 0.9 mmol/L (0.7-2.0)
[2022-04-13 06:32] LABS: Alanine Aminotransferase 21 U/L (6-50); Albumin Level 3.7 g/dL (3.5-5.1); Alkaline Phosphatase 53 U/L (38-126); Anion Gap 3 mmol/L (8-16); Aspartate Amino Transferase 24 U/L (17-59); Bilirubin,Total 0.8 mg/dL (0.2-1.3); Blood Urea Nitrogen 16 mg/dL (9-20); Calcium 8.7 mg/dL (8.4-10.2); Carbon Dioxide 32 mmol/L (22-30); Chloride 100 mmol/L (98-107); Estimated CRCL calculation 54 ml/min; Estimated Glomerular Filt Rate > 60; Glucose 99 mg/dL (65-110); Potassium 4.1 mmol/L (3.4-5.0); Sodium 135 mmol/L (137-145)
[2022-04-13] MEDS: ACETAMINOPHEN 325 MG TABLET 650 MG PO (09:00)
[2022-04-13] MEDS: carvediloL 3.125 MG TABLET PO (09:04)
[2022-04-13] MEDS: BACLOFEN 5 MG TABLET PO (09:05)
[2022-04-13] MEDS: ROSUVASTATIN 10 MG TABLET 40 MG PO (09:05)
[2022-04-13] MEDS: SIMETHICONE 80 MG TAB.CHEW PO ×2 (09:05→13:13)
[2022-04-13] MEDS: TAMSULOSIN HCL 0.4 MG CAPSULE 0.8 MG PO (09:05)
[2022-04-13] MEDS: PANTOPRAZOLE SODIUM IV 40 MG VIAL IV PUSH (09:06)
[2022-04-13] MEDS: FUROSEMIDE 20 MG TABLET PO (09:06)
[2022-04-13] MEDS: FOLIC ACID 1 MG TABLET PO (09:06)
[2022-04-13] MEDS: SERTRALINE HCL 50 MG TABLET PO (09:06)
[2022-04-13] MEDS: APIXABAN 5 MG TABLET PO (09:06)
[2022-04-13] MEDS: FLUTICASONE PROPIONATE 0.05% NA SPR 16 GM BTL (*BKC) 1 SPRAY NASAL (09:13)
[2022-04-13] MEDS: ASPIRIN 81 MG ENTERIC TABLET PO (09:53)
--- NOTE | 2022-04-13 12:27 | PM.PNCARD ---
Progress Note: A&P Assessment and Plan (1) Chest pain: Code(s): R07.9 - Chest pain, unspecified Status: Acute Assessment and Plan: Noncardiac CP. (2) Aortic stenosis: Code(s): I35.0 - Nonrheumatic aortic (valve) stenosis Status: Acute Assessment and Plan: Mild aortic stenosis. Counseled pt re: . REassured he did not need any procedure on the valve at this time. FU in office, Echo in 1-2 years. (3) CAD (coronary artery disease): Code(s): I25.10 - Atherosclerotic heart disease of chilkoot coronary artery without angina pectoris Status: Acute Assessment and Plan: CAD w/ h/o CABG, cath in October showed adequate revascularization. Cont ASA and rosuvastatin Plan OK for discharge from my point of view. FU in office; office will call pt to schedule appt. Subjective Date/time seen: Doses Miguelito is an 87-year-old male with a history of CAD and CABG was admitted on 04/12/2022 with atypical non anginal chest discomfort. Cardiac catheterization in October 2021 [facility] demonstrated adequate revascularization. His troponins are negative. He has a heart murmur consistent with aortic stenosis. 04/13/22 12:27 feels well, up and about in his room with no problems, chest discomfort resolved. Echo this morning showed only mild aortic stenosis, EF 55%. Review of Systems Review of Systems: No chest discomfort, dizziness, abdominal pain, shortness a breath, edema. Exam Const: General: cooperative, healthy appearing and comfortable; No confusion Orientation/consciousness: oriented to person, patient oriented x3 and No confusion Other: Pleasant older male, [employer], reading Cormack Rosas, NAD. HENMT: Mouth: Yes moist mucous membranes Eyes: EOM: EOMs intact bilaterally Neck: Neck: supple Resp: Effort & Inspection: normal respiratory effort Auscultation: clear to auscultation bilaterally Cardio: Rate: regular rate Rhythm: regular rhythm Heart sounds: Murmur heart sound present (2/6 MANPREET USB) GI: Inspection: normal to inspection GI Palp: No abdominal tenderness Skin: General skin exam: normal color and no rashes or lesions noted Neuro: General: oriented to person, patient oriented x3 and No confusion Extrem: Right lower extremity: no edema Left lower extremity: no edema Psych: Appearance: grossly normal Mental Status: mental status grossly normal Objective Data Vital Signs Vital Signs: Vital Signs - 24 hr 04/12/22 12:31 04/12/22 12:45 04/12/22 13:00 Temperature Pulse Rate 71 76 77 Respiratory Rate 16 20 20 Blood Pressure Pulse Oximetry 100 100 Oxygen Delivery 04/12/22 13:01 04/12/22 13:02 04/12/22 13:15 Temperature Pulse Rate 82 74 82 Respiratory Rate 26 H 19 17 Blood Pressure 170/73 H Pulse Oximetry 100 100 99 Oxygen Delivery 04/12/22 13:30 04/12/22 13:45 04/12/22 14:00 Temperature Pulse Rate 73 85 79 Respiratory Rate 19 17 16 Blood Pressure 170/73 H Pulse Oximetry 100 100 Oxygen Delivery 04/12/22 14:01 04/12/22 14:15 04/12/22 18:00 Temperature Pulse Rate 75 86 80 Respiratory Rate 17 24 H 19 Blood Pressure 158/76 H 146/87 H Pulse Oximetry 99 Oxygen Delivery 04/12/22 17:00 04/12/22 16:00 04/12/22 15:00 Temperature Pulse Rate 75 72 82 Respiratory Rate 18 18 22 H Blood Pressure 133/71 131/74 160/79 H Pulse Oximetry 98 99 99 Oxygen Delivery 04/12/22 18:45 04/12/22 20:58 04/12/22 21:00 Temperature 96.8 F L Pulse Rate 72 77 Respiratory Rate 16 Blood Pressure 145/67 H Pulse Oximetry 98 Oxygen Delivery Room Air 04/12/22 21:43 04/12/22 22:00 04/13/22 00:00 Temperature 97.2 F L Pulse Rate 71 67 58 L Respiratory Rate 16 Blood Pressure 134/64 Pulse Oximetry 98 Oxygen Delivery 04/13/22 04:00 04/13/22 06:00 04/13/22 09:04 Temperature 97.7 F Pulse Rate 64 82 88 Respiratory Rate 18 Blood Pressure 144/67 H Pulse Oximetry 98 Oxyg
--- NOTE | 2022-04-13 13:45 | PM.DS ---
DS: Admitting Diagnosis Discharge Date 04/13/22 Admitting Diagnosis chest pain DS: Discharge Diagnosis Discharge Diagnosis (1) Chest pain: Code(s): R07.9 - Chest pain, unspecified Status: Acute Assessment and Plan: troponins negative x3 follow-up with cardiology outpatient in continue current cardiac medications (2) Aortic stenosis: Code(s): I35.0 - Nonrheumatic aortic (valve) stenosis Status: Acute Assessment and Plan: noted to be mild on echo patient denies passing out or dyspnea on exertion (3) CHF (congestive heart failure): Code(s): I50.9 - Heart failure, unspecified Status: Acute Assessment and Plan: chronic, no acute findings (4) CAD (coronary artery disease): Code(s): I25.10 - Atherosclerotic heart disease of [place] coronary artery without angina pectoris Status: Acute Assessment and Plan: history of bypass. Continue aspirin and cardiac medications. 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 continue Protonix (6) Atrial fibrillation: Code(s): I48.91 - Unspecified atrial fibrillation Status: Acute Assessment and Plan: Rate controlled at discharge. Continue Eliquis for stroke risk reduction in carvedilol (7) BPH (benign prostatic hyperplasia): Code(s): N40.0 - Benign prostatic hyperplasia without lower urinary tract symptoms Status: Acute (8) COPD (chronic obstructive pulmonary disease): Code(s): J44.9 - Chronic obstructive pulmonary disease, unspecified Status: Acute Assessment and Plan: no exacerbation noted (9) Depression with anxiety: Code(s): F41.8 - Other specified anxiety disorders Status: Acute (10) Hypertension: Code(s): I10 - Essential (primary) hypertension Status: Acute DS: Summary Hospital Course Hospital Course: patient is a 87-year-old male with the past medical history of CABG who presented the emergency room for chest pain that he described as pressure. the patient took some nitroglycerin which helped but the pressure continued so he presented to the emergency room. EKG showed sinus rhythm with first-degree AV block today and left bundle branch block which has been seen in the past. troponins negative x3. Patient had a harsh murmur on exam so echo was done which showed mild aortic stenosis in no signs of vegetation. Patient was being treated for non complicated UTI and was afebrile with a normal white blood cell count. His pain resolved and Cardiology saw him and agreed with discharge. Patient is going to follow up with Cardiology outpatient. He was educated about worrisome signs and symptoms to come to the emergency room for and was discharged in stable condition. Time Spent with Patient Time attestation: Total time spent providing and/or coordinating discharge services: Time spent: Greater than 30 minutes Exam Narrative: General: Well developed well nourished patient in NAD HEENT: normocephalic Neck: supple Neuro: Alert and oriented CV:RRR during my exam with a 3/6 harsh systolic murmur Resp:CTA, no crackles Abd: Soft, non distended. No pain to palpation. Positive bowel sounds Extremities: No swelling, erythema, or pain to palpation. DS: Data Data Completed and Pending Labs on day of discharge: Labs from last 24 hours 04/13/22 04/13/22 04/13/22 05:54 05:54 05:54 WBC RBC Hgb Hct MCV MCH MCHC RDW Plt Count MPV Immature Gran % (Auto) Neut % (Auto) Lymph % (Auto) [place] % (Auto) Eos % (Auto) Baso % (Auto) Lymph # (Auto) [place] # (Auto) Eos # (Auto) Baso # (Auto) Abs Immat Gran (auto) Absolute Neuts (auto) Absolute Nucleated RBC Nucleated
== END 2022-04-13 15:15 | disposition home or self-care (01) ==
LOC: ANHED 08:58 → ANHIMU 13:32 → ANH3MEDSUR 18:30
PROVIDERS: Emergency Medicine; Nurse Practitioner; Admitting Provider Family Medicine; Emergency Provider Emergency Medicine; PCP Nurse Practitioner Family; Visit Provider Physician Assistant
DX: R07.9 Chest pain, unspecified (principal); I35.0 Nonrheumatic aortic (valve) stenosis; I35.8 Other nonrheumatic aortic valve disorders; I11.0 Hypertensive heart disease with heart failure; I50.9 Heart failure, unspecified; I25.10 Atherosclerotic heart disease of native coronary artery without angina pectoris; K22.70 Barrett's esophagus without dysplasia; I48.91 Unspecified atrial fibrillation; N40.0 Benign prostatic hyperplasia without lower urinary tract symptoms; J44.9 Chronic obstructive pulmonary disease, unspecified; Z20.822 Contact with and (suspected) exposure to COVID-19; I73.9 Peripheral vascular disease, unspecified; K21.9 Gastro-esophageal reflux disease without esophagitis; E78.5 Hyperlipidemia, unspecified; F41.8 Other specified anxiety disorders; I21.9 Acute myocardial infarction, unspecified; Z95.1 Presence of aortocoronary bypass graft; I44.0 Atrioventricular block, first degree; I44.7 Left bundle-branch block, unspecified; I70.0 Atherosclerosis of aorta; H91.93 Unspecified hearing loss, bilateral; R91.8 Other nonspecific abnormal finding of lung field; Z87.891 Personal history of nicotine dependence; Z79.01 Long term (current) use of anticoagulants; Z79.82 Long term (current) use of aspirin; Z79.51 Long term (current) use of inhaled steroids; Z79.899 Other long term (current) drug therapy
CPT/HCPCS: 36415; 71046; 80053; 83605; 83690; 83735; 84443; 84484; 85025; 85610; 85730; 87636; 93005; 93306; 96374; 96376; 99285; A9270; C9113; G0378

== ENCOUNTER 2022-04-26 10:29 | Emergency (ER) | payer MEDICARE, BC, SELFPAY ==
[2022-04-26 10:30] VITALS: BP 130/59; PULSE 74; RESP 18; TEMP 37.1; O2SAT 100
[2022-04-26 10:36] VITALS: BP 130/59; PULSE 77; RESP 17; TEMP 37.1; O2SAT 98
--- NOTE | 2022-04-26 10:56 | ED.MALEGU ---
HPI - Male Genitourinary General Chief complaint: Urogenital-Male Stated complaint: Possible UTI Time Seen by Provider: 04/26/22 10:40 Source: patient Mode of arrival: ambulatory Limitations: no limitations History of Present Illness HPI Narrative: 87-year-old male with a history of hypertension, coronary artery disease status post CABG, status post left main stent with a cardiac catheterization in October of 2021 which did not show any acute occlusions, CHF, atrial fibrillation, aortic stenosis, peripheral vascular disease, dyslipidemia, G AD, depression, IBS, neck pain, BPH on Flomax 0.8 mg daily presents to the ER with -- dysuria without any hematuria. -- Bilateral flank pain along with suprapubic pain -- Precipitancy,, hesitancy, frequency -- patient has been treated with 2 rounds of antibiotics for UTI diagnosed on 03/22/2022 and 04/12/2022. Continues to have ongoing symptoms. Had fever with a T-max of 100.1? which was transient. MD Complaint: dysuria Onset (ago): day(s) Duration: constant Severity: mild Quality: aching Relieving factors: none Exacerbating factors: none Context: new medication Associated symptoms: Reports fever Related Data Home Medications Medication Instructions Recorded Confirmed potassium chloride 10 mEq 20 meq PO Q12H 05/24/19 04/26/22 tablet,extended release(part/cryst) fexofenadine 180 mg tablet 180 mg PO DAILY PRN Allergy 10/30/21 04/26/22 Symptoms apixaban 5 mg tablet (Eliquis) 5 mg PO Q12H 11/10/21 04/26/22 aspirin 81 mg tablet,delayed 81 mg PO DAILY 11/27/21 04/26/22 release (Adult Aspirin Regimen) hydralazine 50 mg tablet 50 mg PO TID PRN other 11/27/21 04/26/22 rosuvastatin 40 mg tablet 20 mg PO DAILY 11/27/21 04/26/22 alprazolam 0.5 mg tablet 0.5 mg PO BID PRN Anxiety 03/13/22 04/26/22 baclofen 5 mg tablet 5 mg PO BID 03/13/22 04/26/22 carvedilol 6.25 mg tablet 3.125 mg PO BID 03/13/22 04/26/22 famotidine 40 mg tablet 40 mg PO DAILY 03/13/22 04/26/22 furosemide 20 mg tablet 20 mg PO DAILY 03/13/22 04/26/22 pantoprazole 40 mg tablet,delayed 40 mg PO DAILY 03/13/22 04/26/22 release simethicone 80 mg chewable tablet 80 mg PO TID 03/13/22 04/26/22 tamsulosin 0.4 mg capsule 0.8 mg PO DAILY 03/13/22 04/26/22 polyethylene glycol 1 ea miscellaneous DAILY PRN 04/13/22 04/26/22 Constipation isosorbide mononitrate 30 mg 30 mg PO DAILY 04/17/22 04/26/22 tablet,extended release 24 hr Allergies Allergy/AdvReac Type Severity Reaction Status Date / Time amoxicillin Allergy Intermediate Unknown Verified 04/26/22 10:38 dill oil Allergy Unknown Verified 04/26/22 10:38 Iodine and Iodide Containing AdvReac Intermediate Itching Verified 04/26/22 10:38 Produc prednisone AdvReac Unknown Unknown Verified 04/26/22 10:38 Radiographic Dyes/Iodine Allergy Intermediate itching, Uncoded 04/26/22 10:38 weakness of lower limbs Review of Systems Review of Systems: All systems reviewed & are unremarkable except as noted in HPI and below Constitutional: Constitutional: Reports as per HPI and Reports no additional constitutional complaints Eyes: Eyes: Reports as per HPI and Reports no additional eye complaints ENT: Reports system reviewed and no additional complaints, except as documented and Reports as per HPI Cardiovascular: Cardiovascular: Reports as per HPI and Reports no additional cardiovascular complaints Respiratory: Respiratory: Reports as per HPI and Reports no additional respiratory complaints Gastrointestinal: Gastrointestinal: Reports as per HPI and Reports no additional gastrointestinal complaints Genitourinary: Genitourinary: Reports no additional male genitourinary complaints, Reports as per HPI, Reports oliguria, Reports dysuria, Reports flank pain, Reports urinary frequency, Reports urinary hesitancy and Reports urinary urgency Musculoskeletal: Musculoskeletal: Reports no additional musculoskeletal complaints and Reports as per HPI Integumentary/Breasts:
[2022-04-26 11:10] LABS: Add Urine Microscopic? YES; Appearance Urine Clear (Clear); Bilirubin Urine Negative (Negative); Blood Urine 2+ (Negative); Color Urine Light Yellow (Yellow); Glucose Urine UA Negative (Negative); Ketones Urine Negative (Negative); Leukocyte Esterase Ur 3+ LEU/UL (Negative); Nitrate Urine Negative (Negative); Protein Urine Negative (Negative); Urobilinogen Urine 0.2 mg/dL (0.2-1.0)
[2022-04-26 11:19] LABS: Bacteria Urine 2+ /hpf; WBC Urine >75 /hpf (0-3)
[2022-04-26 11:42] LABS: Basophils Absolute Auto 0.03 K/mm3 (0.00-0.10); Basophils Percent Auto 0.2 % (0.0-1.0); Eosinophils Absolute Auto 0.01 K/mm3 (0.02-0.50); Eosinophils Percent Auto 0.1 % (1.0-6.0); Hematocrit 34.9 % (37.0-46.0); Hemoglobin 11.9 g/dL (12.4-15.3); Immature Granulocyte Absolute 0.06 K/mm3 (0.00-0.00); Immature Granulocyte Percent A 0.4 % (0.0-0.0); Lymphocytes Absolute Auto 1.14 K/mm3 (1.10-4.50); Lymphocytes Percent Auto 7.1 % (18.0-42.0); Mean Corpuscular HGB Conc 34.1 g/dL (32.0-36.0); Mean Corpuscular Hemoglobin 29.5 pg (27.0-31.0); Mean Corpuscular Volume 86.4 fL (78.0-102.0); Mean Platelet Volume 10.3 fl (8.7-11.0); Monocytes Absolute Auto 1.66 K/mm3 (0.10-0.90); Monocytes Percent Auto 10.4 % (2.0-11.0); Neutrophils Absolute Auto 13.1 K/mm3 (1.7-7.2); Neutrophils Percent Auto 81.8 % (50.0-70.0); Platelet Count Result 161 K/mm3 (150-420); Red Blood Count 4.04 M/mm3 (4.70-6.10)
[2022-04-26 11:53] LABS: Anion Gap 4 mmol/L (8-16); Blood Urea Nitrogen 13 mg/dL (7-18); Calcium 8.2 mg/dL (8.5-10.1); Carbon Dioxide 30 mmol/L (21-32); Chloride 101 mmol/L (98-108); Estimated Glomerular Filt Rate 60; Glucose 97 mg/dL (70-99); Osmolality Calculated 280 mOsm/kg (285-295); Potassium 4.2 mmol/L (3.5-5.1); Sodium 135 mmol/L (136-145)
[2022-04-26 12:00] LABS: Lactic Acid Reflex 0.8 mmol/L (0.4-2.0)
[2022-04-26 12:19] VITALS: BP 137/54; PULSE 71; RESP 16; TEMP 36.7; O2SAT 98
--- NOTE | 2022-04-27 09:52 | PC.NURSE ---
pt arrives to er with complaint of heart racing through the night and dry mouth. believes it is reaction to ciproflaxin. spoke with dr ndiaye, new rx called in to [facility] in [place], spoke with madelin. Keflex 500mg 1 po TID for 7 days. pt informed rx was called in to pharmacy.
== END 2022-04-26 12:20 | disposition home or self-care (01) ==
PROVIDERS: Emergency Provider Internal Medicine Critical Care Medicine; PCP Family Medicine
DX: N40.0 Benign prostatic hyperplasia without lower urinary tract symptoms (principal); N39.0 Urinary tract infection, site not specified; I25.10 Atherosclerotic heart disease of native coronary artery without angina pectoris; I11.0 Hypertensive heart disease with heart failure; I50.9 Heart failure, unspecified; I48.91 Unspecified atrial fibrillation; I73.9 Peripheral vascular disease, unspecified; E78.5 Hyperlipidemia, unspecified; F41.8 Other specified anxiety disorders; K21.9 Gastro-esophageal reflux disease without esophagitis; I25.2 Old myocardial infarction; Z95.5 Presence of coronary angioplasty implant and graft; Z95.1 Presence of aortocoronary bypass graft; Z79.01 Long term (current) use of anticoagulants; Z79.82 Long term (current) use of aspirin; Z87.891 Personal history of nicotine dependence; Z79.51 Long term (current) use of inhaled steroids
CPT/HCPCS: 36415; 80048; 81001; 83605; 85025; 87077; 87086; 87088; 87186; 99283

== ENCOUNTER 2022-05-10 08:00 | Outpatient (CLI) | payer MEDICARE, BC, SELFPAY ==
--- NOTE | ~2022-05-10 | XR_ITS ---
EXAMINATION: XR barium swallow DATE: 05/10/2022 09:29 INDICATION: Dysphagia. Reflux. TECHNIQUE: The patient drank thick barium, gas-producing crystals, and thin barium. Fluoroscopic spot radiographs of the hypopharynx and esophagus were obtained. A total of 1242 images were recorded. Fl uoroscopy exposure time was 2.0 minutes. COMPARISON: None. FINDINGS: The pharynx is symmetric and without evidence of mass lesion or mucosal irregularity. The e sophagus is normal without mass or stricture. Esophageal motility is normal. There is a very small sl iding-type hiatal hernia with gastroesophageal junction approximately 2 cm above level of the diaphra gm. There was no gastroesophageal reflux with provocative maneuvers. The stomach and visualized porti ons of the proximal small bowel appeared normal. Median sternotomy wires and mediastinal surgical cli ps are seen, likely from prior coronary artery bypass grafting. IMPRESSION: 1. Very small sliding-type hiatal hernia without gastroesophageal reflux with provocative maneuvers. Reviewed, dictated and finalized at location A. 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 Very small sliding-type hiatal hernia without gastroesophageal reflux with p rovocative maneuvers.
== END 2022-05-10 08:01 | disposition home or self-care (01) ==
LOC: CHSIMG 08:02
PROVIDERS: PCP Family Medicine; Visit Provider Family Medicine
DX: R13.10 Dysphagia, unspecified (principal); K44.9 Diaphragmatic hernia without obstruction or gangrene
CPT/HCPCS: 74220

== ENCOUNTER 2022-09-23 11:06 | Emergency (ER) | payer MEDICARE, BC, SELFPAY ==
[2022-09-23] VITALS (7 sets, daily range): BP systolic 112–157; BP diastolic 46–70; PULSE 65; RESP 17; TEMP 36.4; O2SAT 95–99
--- NOTE | 2022-09-23 11:26 | ECG_ITS ---
Measurements Intervals [place] Rate: 54 P: -27 VA: 222 QRS: 84 QRSD: 138 T: 127 QT: 431 QTc: 411 Interpretive Statements SINUS OR ECTOPIC ATRIAL BRADYCARDIA WITH FIRST DEGREE AV BLOCK LEFT BUNDLE BRANCH BLOCK BASELINE WANDER- I ABNORMAL ECG COMPARED TO ECG 04/12/2022 02:59:51 SINUS BRADYCARDIA NOW PRESENT Electronically Signed On 09-23-2022 13:53:59 CDT by Herman Jaimes D.O.
--- NOTE | 2022-09-23 11:28 | ED.GENADULT ---
HPI - General Adult General Chief complaint: Dizziness Stated complaint: low bp Time Seen by Provider: 09/23/22 11:19 History of Present Illness HPI narrative: Celestino is an 87M with a PMH of dysphagia, aortic stenosis, HTN, anand esophagus, insomnia, CHF, Afib, PAD, CAD, GERD, COPD that presented to the ED with dizziness. It started yesterday morning. When he gets up or lays down the world feels like it is spinning. When he is up walking around there is no vertigo. He has not had any dyspnea, CP, vomiting or palpitations with any of the episodes. Related Data Home Medications Medication Instructions Recorded Confirmed potassium chloride 10 mEq 20 meq PO Q12H 05/24/19 09/23/22 tablet,extended release(part/cryst) apixaban 5 mg tablet (Eliquis) 5 mg PO Q12H 11/10/21 09/23/22 rosuvastatin 40 mg tablet 20 mg PO DAILY 11/27/21 09/23/22 baclofen 5 mg tablet 5 mg PO BID 03/13/22 09/23/22 famotidine 40 mg tablet 40 mg PO DAILY 03/13/22 09/23/22 furosemide 20 mg tablet 20 mg PO DAILY 03/13/22 09/23/22 tamsulosin 0.4 mg capsule 0.8 mg PO DAILY 03/13/22 09/23/22 Allergies Allergy/AdvReac Type Severity Reaction Status Date / Time amoxicillin Allergy Intermediate Unknown Verified 09/23/22 11:17 dill oil Allergy Unknown Verified 09/23/22 11:17 Iodine and Iodide Containing AdvReac Intermediate Itching Verified 09/23/22 11:17 Produc prednisone AdvReac Unknown Unknown Verified 09/23/22 11:17 ciprofloxacin AdvReac Palpitation Verified 09/23/22 11:17 s Radiographic Dyes/Iodine Allergy Intermediate itching, Uncoded 09/23/22 11:17 weakness of lower limbs Review of Systems Review of Systems: All systems reviewed & are unremarkable except as noted in HPI and below [facility] Past Medical History Medical History Aortic stenosis Aortic valve disease Atrial fibrillation Anand esophagus CAD (coronary artery disease) COPD (chronic obstructive pulmonary disease) Depression with anxiety Femoral artery stenosis GERD (gastroesophageal reflux disease) Heart disease Hematuria Hyperlipidemia Hypertension Hypertension Hypertension Low folate Myocardial infarct 1988 Osteoarthritis Overweight Surgical History Surgical History H/O heart artery stent History of cardiac cath History of cholecystectomy History of quadruple bypass Hx of cholecystectomy S/P CABG x 4 Family History Family History Mother , Age 80 Heart disease Father , Age 85. Cause of Pneumonia. No problems noted. Mother , Age 80 Family history of coronary artery disease Father , Age 85. Cause of Pneumonia. No problems noted. Social History Social History Social History: The patient lives alone . He has 4 children. He is . He is Retired from the [employer]. His son Herrera is the poa. The patient is a former smoker does not use any alcohol marijuana or illicit drugs. Code status full code Smoking packs per day: 1 Smoking cigarettes per day: 20.0 Years smoked: 30 Smoking pack-years: 30.00 Smoking status: Former smoker Tobacco type: cigarettes Second hand tobacco smoke exposure: No Additional smoking assessment comments: Quit 1988 Alcohol intake: never Alcohol use details: rarely drinks alcohol,very occasionally Substance use: never Substance use type: does not use Lack of Transportation: No Lack of Food: Never True Current Housing: I Have Housing Concerned About Future Housing: No Difficulty Paying Gas/Electric Bills: No Difficulty Paying for Meds: No Currently Unemployed: No Education: High School Diploma/GED Difficulty w/ Childcare or Family Care: No Living arrangements: alone Ed fleming
[2022-09-23 11:37] LABS: Basophils Absolute Auto 0.02 K/mm3 (0.00-0.10); Basophils Percent Auto 0.3 % (0.0-1.0); Eosinophils Absolute Auto 0.04 K/mm3 (0.02-0.50); Eosinophils Percent Auto 0.7 % (1.0-6.0); Hematocrit 38.8 % (37.0-46.0); Immature Granulocyte Absolute 0.01 K/mm3 (0.00-0.00); Immature Granulocyte Percent A 0.2 % (0.0-0.0); Lymphocytes Absolute Auto 0.98 K/mm3 (1.10-4.50); Lymphocytes Percent Auto 16.8 % (18.0-42.0); Mean Corpuscular HGB Conc 33.5 g/dL (32.0-36.0); Mean Corpuscular Hemoglobin 28.4 pg (27.0-31.0); Mean Corpuscular Volume 84.7 fL (78.0-102.0); Mean Platelet Volume 11.5 fl (8.7-11.0); Monocytes Absolute Auto 0.46 K/mm3 (0.10-0.90); Monocytes Percent Auto 7.9 % (2.0-11.0); Neutrophils Absolute Auto 4.3 K/mm3 (1.7-7.2); Neutrophils Percent Auto 74.1 % (50.0-70.0); Platelet Count Result 159 K/mm3 (150-420); Red Blood Count 4.58 M/mm3 (4.70-6.10); Red Cell Distribution Width 14.2 % (11.6-14.4); White Blood Count 5.8 K/mm3 (4.8-10.8)
[2022-09-23 11:51] LABS: Alanine Aminotransferase 34 U/L (16-63); Albumin Level 3.7 g/dL (3.4-5.0); Alkaline Phosphatase 62 U/L (46-116); Anion Gap 7 mmol/L (8-16); Aspartate Amino Transferase 26 U/L (15-37); Bilirubin,Total 0.4 mg/dL (0.00-1.00); Blood Urea Nitrogen 18 mg/dL (7-18); Calcium 8.3 mg/dL (8.5-10.1); Carbon Dioxide 30 mmol/L (21-32); Chloride 103 mmol/L (98-108); Estimated Glomerular Filt Rate > 60; Glucose 116 mg/dL (70-99); Osmolality Calculated 292 mOsm/kg (285-295); Sodium 140 mmol/L (136-145); Total Protein 6.5 g/dL (6.4-8.2)
== END 2022-09-23 13:21 | disposition home or self-care (01) ==
PROVIDERS: Emergency Provider Family Medicine; PCP Family Medicine
DX: H81.10 Benign paroxysmal vertigo, unspecified ear (principal); I11.0 Hypertensive heart disease with heart failure; I50.9 Heart failure, unspecified; I48.91 Unspecified atrial fibrillation; I25.10 Atherosclerotic heart disease of native coronary artery without angina pectoris; J44.9 Chronic obstructive pulmonary disease, unspecified; K21.9 Gastro-esophageal reflux disease without esophagitis; I35.0 Nonrheumatic aortic (valve) stenosis; F41.8 Other specified anxiety disorders; E78.5 Hyperlipidemia, unspecified; I25.2 Old myocardial infarction; Z95.5 Presence of coronary angioplasty implant and graft; Z95.1 Presence of aortocoronary bypass graft; Z79.01 Long term (current) use of anticoagulants; Z87.891 Personal history of nicotine dependence
CPT/HCPCS: 36415; 80053; 85025; 93005; 99283

== ENCOUNTER 2023-02-02 08:29 | Observation (INO) | payer MEDICARE, BC, SELFPAY ==
[2023-02-02] VITALS (13 sets, daily range): BP systolic 132–177; BP diastolic 64–101; PULSE 66–135; RESP 17–20; TEMP 36.3–37; O2SAT 98; BMI 29.2
--- NOTE | ~2023-02-02 | XR_ITS ---
XR chest 2V DATE: 02/02/2023 09:05 INDICATION: Midsternal chest pain, hypertension, increased weakness TECHNIQUE: PA and lateral views COMPARISON: 04/12/2022 PA and lateral chest FINDINGS: Status post sternotomy. Heart size is within normal range. Aortic arch and ascending and de scending thoracic aortic calcification. No hilar or mediastinal enlargement. No pulmonary infiltrate or consolidation, pleural effusion or pulmonary vascular congestion or pneumo thorax. Chronic mild scarring in right mid and lower lung zone, stable since 04/12/2022. Osteopenia. IMPRESSION: No active cardiopulmonary disease or significant change since 04/12/2022 Reviewed, dictated and finalized at location A.
--- NOTE | 2023-02-02 08:37 | ECG_ITS ---
Measurements Intervals [place] Rate: 107 P: HI: 0 QRS: -29 QRSD: 136 T: 122 QT: 346 QTc: 462 Interpretive Statements ATRIAL FLUTTER/TACHYCARDIA WITH RAPID VENTRICULAR RESPONSE WITH ABERRANT CONDUCTION OR VENTRICULAR PREMATURE COMPLEXES INTRAVENTRICULAR CONDUCTION DELAY [130+ ms QRS DURATION] ABNORMAL ECG COMPARED TO ECG 09/23/2022 11:31:12 ATRIAL FLUTTER NOW PRESENT ABERRANT CONDUCTION OF SUPRAVENTRICULAR BEAT(S) NOW PRESENT INTRAVENTRICULAR CONDUCTION DELAY NOW PRESENT Electronically Signed On 02-02-2023 8:56:40 CDT by Robbie Tanner M.D.
[2023-02-02 09:01] LABS: Basophils Absolute Auto 0.02 K/mm3 (0.00-0.10); Basophils Percent Auto 0.3 % (0.0-1.0); Eosinophils Absolute Auto 0.07 K/mm3 (0.02-0.50); Eosinophils Percent Auto 0.9 % (1.0-6.0); Hematocrit 40.7 % (37.0-46.0); Hemoglobin 13.8 g/dL (12.4-15.3); Immature Granulocyte Absolute 0.02 K/mm3 (0.00-0.00); Immature Granulocyte Percent A 0.3 % (0.0-0.0); Lymphocytes Absolute Auto 1.46 K/mm3 (1.10-4.50); Lymphocytes Percent Auto 18.9 % (18.0-42.0); Mean Corpuscular HGB Conc 33.9 g/dL (32.0-36.0); Mean Corpuscular Hemoglobin 28.9 pg (27.0-31.0); Mean Corpuscular Volume 85.3 fL (78.0-102.0); Mean Platelet Volume 11.4 fl (8.7-11.0); Monocytes Absolute Auto 0.68 K/mm3 (0.10-0.90); Monocytes Percent Auto 8.8 % (2.0-11.0); Neutrophils Absolute Auto 5.5 K/mm3 (1.7-7.2); Neutrophils Percent Auto 70.8 % (50.0-70.0); Platelet Count Result 185 K/mm3 (150-420); Red Blood Count 4.77 M/mm3 (4.70-6.10); Red Cell Distribution Width 14.5 % (11.6-14.4); White Blood Count 7.7 K/mm3 (4.8-10.8)
--- NOTE | 2023-02-02 09:11 | ED.GENADULT ---
HPI - General Adult General Chief complaint: Chest Pain Stated complaint: high b/p and weak Time Seen by Provider: 02/02/23 08:37 Source: patient Mode of arrival: ambulatory Limitations: no limitations History of Present Illness HPI narrative: Patient is an 87-year-old male with 2 day history of not feeling well and elevated heart rate. He says his blood pressure has been normal. He has AFib using Xarelto and Coreg. He has been taking his medicine regularly. it appears after we called the pharmacy that he is not taking the Coreg. Per his med list he thinks he is taking it however pharmacy says he has not filled since August of this year. 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 patient had coronary artery disease in the past with open heart surgery 24 years ago. Onset (ago): day(s) (2) Location: chest Radiation: non-radiation Severity: mild Severity scale (1-10): 2 Quality: aching Pain Consistency: intermittent ( Patient has known costochondritis and musculoskeletal pain of the chest in the past per PMD) Relieving factors: none Exacerbating factors: none Associated symptoms: chest pain, shortness of breath and weakness Treatments prior to arrival: none Related Data Home Medications Medication Instructions Recorded Confirmed potassium chloride 10 mEq 20 meq PO DAILY 05/24/19 02/02/23 tablet,extended release(part/cryst) apixaban 5 mg tablet (Eliquis) 5 mg PO Q12H 11/10/21 02/02/23 famotidine 40 mg tablet 40 mg PO DAILY 03/13/22 02/02/23 isosorbide mononitrate 30 mg 30 mg PO DAILY 12/04/22 02/02/23 tablet,extended release 24 hr mecobalamin (vitamin B12) 500 mcg 500 mcg PO DAILY 12/04/22 02/02/23 chewable tablet pyridoxine (vitamin B6) 100 mg 100 mg PO DAILY 12/04/22 02/02/23 tablet albuterol sulfate 90 mcg/actuation See Rx Instructions .Route 02/02/23 02/02/23 aerosol inhaler .COMPLEX PRN sob Allergies Allergy/AdvReac Type Severity Reaction Status Date / Time amoxicillin Allergy Intermediate Unknown Verified 12/25/22 13:31 dill oil Allergy Unknown Verified 12/25/22 13:31 Iodine and Iodide Containing AdvReac Intermediate Itching Verified 12/25/22 13:31 Produc prednisone AdvReac Unknown Unknown Verified 12/25/22 13:31 ciprofloxacin AdvReac Palpitation Verified 12/25/22 13:31 s Radiographic Dyes/Iodine Allergy Intermediate itching, Uncoded 12/25/22 13:31 weakness of lower limbs Review of Systems Review of Systems: All systems reviewed & are unremarkable except as noted in HPI and below Constitutional: Constitutional: Reports no additional constitutional complaints Eyes: Eyes: Reports no additional eye complaints ENT: Reports system reviewed and no additional complaints, except as documented Cardiovascular: Cardiovascular: Reports no additional cardiovascular complaints Respiratory: Respiratory: Reports no additional respiratory complaints Gastrointestinal: Gastrointestinal: Reports no additional gastrointestinal complaints Genitourinary: Genitourinary: Reports no additional male genitourinary complaints Musculoskeletal: Musculoskeletal: Reports no additional musculoskeletal complaints Integumentary/Breasts: Skin/Breast: Reports system reviewed and no additional complaints, except as docu Neurologic: Reports system reviewed and no additional complaints, except as documented Psychiatric: Psychiatric: Reports no additional psychiatric complaints Endocrine: Endocrine: Reports no additional endocrine complaints Hematologic/Lymphatic: Hematologic/Lymphatic: Reports no additional hematologic/lymphatic complaints Allergic/Immunologic: Allergic/Immunologic: Reports no additional allergic/immunologic complaints PMFSH Past Medical History Medical History Aortic stenosis Aortic valve disease Atrial fibrillation Sheppard esophagus CAD (coronary artery disease) COPD (chronic obstructive pulmonary disease) Depression with anxiety Femoral ar
[2023-02-02 09:17] LABS: Partial Thromboplastin Time 29.6 SEC (23.90-30.70); Prothrombin Time 11.3 Seconds (9.50-12.10)
[2023-02-02] MEDS: dilTIAZem HCl INJ 25 MG/5 ML VIAL 5 MG IV PUSH (09:20)
[2023-02-02 09:27] LABS: Alanine Aminotransferase 28 U/L (16-63); Albumin Level 3.6 g/dL (3.4-5.0); Alkaline Phosphatase 63 U/L (46-116); Anion Gap 10 mmol/L (8-16); Aspartate Amino Transferase 20 U/L (15-37); Bilirubin,Total 0.4 mg/dL (0.00-1.00); Blood Urea Nitrogen 17 mg/dL (7-18); Calcium 8.8 mg/dL (8.5-10.1); Carbon Dioxide 28 mmol/L (21-32); Chloride 103 mmol/L (98-108); Estimated Glomerular Filt Rate > 60; Glucose 144 mg/dL (70-99); Lipase 26 U/L (16-77); NT Pro B Type Natriuretic Pept 3470 pg/mL (0-450); Osmolality Calculated 296 mOsm/kg (285-295); Sodium 141 mmol/L (136-145); Thyroid Stimulating Hormone 3.31 uIU/mL (0.36-3.74); Total Protein 6.6 g/dL (6.4-8.2); Troponin I 17.6 ng/L (0.00-60.4)
--- NOTE | 2023-02-02 11:31 | ADMGEN ---
This patient, Celestino Rodriguez, was admitted to 2nd Floor Room 204-2. Patient/family oriented to hospital policies and general routines including ID bracelet, bed and alarms, visiting hours, pain management, procedures, bathroom and other care routines, personal items, smoking policy, room service/diet, and visiting hours. Information on how to activate the Rapid Response Team has been discussed. Patient/Family are encouraged to report perceived risks to care and to ask questions if they do not understand what they are told or what they should do.
--- NOTE | 2023-02-02 14:40 | PM.IMHP ---
H&P: HPI History of Present Illness Date/Time: 02/02/23 14:40 Chief Complaint: heart Palpation Narrative: This is a 87 year old male that presented to the hospital as he was having a fast heaert beat at home. According to patient the symptoms had started prior to his arrival to the hospital. According to Mr. Rodriguez he takes medication Coreg daily although he checks his blood pressure prior to his medication and if his systolic is close to 100 he does not take his blood pressure medication. He has missed several doses over the past week as his blood pressure has been low. Mr. Rodriguez has a past medical history of quadruple bypass per patient he has hypertension, cholecystectomy stent, atrial fibrillation. Mr Rodriguez lives home alone and states he is active and walks on a daily basis and he take care of himself with kids living nearby and he is self sufficient. Patient states he had some shortness of breath which has since resolved and he is feeling a lot better. Patient denies any leg swelling and currently his heart rate remains in a-fib although rate controlled. We will continue to monitor patient and administer his beta darryl and reevaluate his heart rate in the morning. He is afebrile eating and drinking iwthout difficulites. Review of Systems Review of Systems: heart palpation All systems reviewed & are unremarkable except as noted in HPI and below PMFSH Past Medical History Medical History Aortic stenosis Aortic valve disease Atrial fibrillation Sheppard esophagus CAD (coronary artery disease) COPD (chronic obstructive pulmonary disease) Depression with anxiety Femoral artery stenosis GERD (gastroesophageal reflux disease) Heart disease Hematuria Hyperlipidemia Hypertension Hypertension Hypertension Low folate Myocardial infarct 1988 Osteoarthritis Overweight Surgical History Surgical History H/O heart artery stent History of cardiac cath History of cholecystectomy History of quadruple bypass Hx of cholecystectomy S/P CABG x 4 Family History Family History Mother , Age 80 Heart disease Father , Age 85. Cause of Pneumonia. No problems noted. Mother , Age 80 Family history of coronary artery disease . Father , Age 85. Cause of Pneumonia. No problems noted. Social History Social History Social History: The patient lives alone . He has 4 children. He is . He is Retired from the [employer]. His son Herrera is the poa. The patient is a former smoker does not use any alcohol marijuana or illicit drugs. Code status full code Smoking packs per day: 1 Smoking cigarettes per day: 20.0 Years smoked: 30 Smoking pack-years: 30.00 Smoking status: Never smoker Tobacco type: cigarettes Second hand tobacco smoke exposure: No Additional smoking assessment comments: Quit 1988 Alcohol intake: never Drinks per week: 1 Substance use: never Substance use type: does not use Lack of Transportation: No Lack of Food: Never True Current Housing: I Have Housing Concerned About Future Housing: No Difficulty Paying Gas/Electric Bills: No Difficulty Paying for Meds: No Currently Unemployed: No Education: Decline to Answer Difficulty w/ Childcare or Family Care: No Living arrangements: alone Additional living arrangements comments: . 4 Adult Children. 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 Gender identity (if verbalized by the patient): Male Spiritual care concerns: No Agree to blood products: Yes Meds Home Medications and Allergies Home Medications Medication
[2023-02-02] MEDS: ACETAMINOPHEN 325 MG TABLET 650 MG PO (19:34)
--- NOTE | 2023-02-02 20:10 | PC.NURSE ---
Patient called nurse to room saying his chest hurts. Patient complain of chest pressure with no other symptoms. Patient says he felt gassy so he went to the bathroom and passed a lot of gas and when he came back and laid down on his left side he felt the pressure in his chest. VSS. Pulse non-bounding. No other complaints. Call light in reach.
[2023-02-02] MEDS: APIXABAN 2.5 MG TABLET 5 MG PO (20:14)
[2023-02-02] MEDS: carvediloL 3.125 MG TABLET PO (20:15)
[2023-02-02] MEDS: traZODone HCL 50 MG TABLET PO (20:15)
--- NOTE | 2023-02-02 20:15 | PC.NURSE ---
Patient reports feeling completely better. Denies headache. Denies chest discomfort/pressure. Patient says he doesn't know what it was but that sometimes he thinks his brain gets the better of him and he starts thinking too much and his body reacts. No distress noted. Call light in reach.
--- NOTE | 2023-02-02 22:35 | PC.NURSE ---
Patient denies any further chest pain/pressure. No distress noted. Call light in reach.
[2023-02-03] VITALS (12 sets, daily range): BP systolic 109–156; BP diastolic 51–94; PULSE 60–110; RESP 16–20; TEMP 36.1–36.6; O2SAT 95–100
--- NOTE | 2023-02-03 00:05 | PC.NURSE ---
Patient says he's been sleeping good and has had no more chest pain/pressure. No distress noted. Call light in reach.
[2023-02-03 05:39] LABS: Hematocrit 38.9 % (37.0-46.0); Hemoglobin 12.9 g/dL (12.4-15.3); Mean Corpuscular HGB Conc 33.2 g/dL (32.0-36.0); Mean Corpuscular Hemoglobin 28.5 pg (27.0-31.0); Mean Corpuscular Volume 85.9 fL (78.0-102.0); Mean Platelet Volume 11.2 fl (8.7-11.0); Platelet Count Result 161 K/mm3 (150-420); Red Blood Count 4.53 M/mm3 (4.70-6.10); Red Cell Distribution Width 14.4 % (11.6-14.4); White Blood Count 7.7 K/mm3 (4.8-10.8)
[2023-02-03 05:51] LABS: Anion Gap 10 mmol/L (8-16); Blood Urea Nitrogen 17 mg/dL (7-18); Calcium 8.5 mg/dL (8.5-10.1); Carbon Dioxide 26 mmol/L (21-32); Chloride 105 mmol/L (98-108); Estimated CRCL calculation 52 ml/min; Estimated Glomerular Filt Rate > 60; Glucose 103 mg/dL (70-99); Osmolality Calculated 293 mOsm/kg (285-295); Potassium 3.8 mmol/L (3.5-5.1); Sodium 141 mmol/L (136-145)
--- NOTE | 2023-02-03 08:29 | PM.IMPN ---
Progress Note: A&P Assessment and Plan (1) Atrial fibrillation with RVR: Code(s): I48.91 - Unspecified atrial fibrillation Status: Acute Assessment and Plan: EKG on admission shows a-fib rvr, rate 107. On telemetry Trops in the ED 17.8 and repeat 16.8 this morning Received 5 mg diltiazem in the ED with favorable response Will make adjustments to his medications today. His coreg had been decreased at one point. Spoke with cardiology at [facility] and they recommend increasing coreg back to 6.25 mg BID Will make medication adjustment today and monitor his blood pressures in response Hopeful to d/c tomorrow (2) Hypertension: Qualifiers: Hypertension type: primary hypertension Qualified Code(s): I10 - Essential (primary) hypertension Code(s): I10 - Essential (primary) hypertension Status: Acute Assessment and Plan: On home agents of coreg, lasix, and imdur Restarting home lasix and imdur increasing coreg to 6.25 mg BID Monitor response with heart rate and BP today Blood pressures at this time are stable (3) Depression with anxiety: Code(s): F41.8 - Other specified anxiety disorders Status: Acute Assessment and Plan: Stable on nursing home social worker sertraline (4) History of quadruple bypass: Code(s): Z95.1 - Presence of aortocoronary bypass graft Status: Acute Assessment and Plan: Stable. Troponin negative x 2 Plan Feeding: heart healthy Analgesia: tylenol Thromboembolic prophylaxis: eliquis Ulcer prophylaxis: na Glycemic control: na Bowel regimen: na Lines: PIV Antibiotics: na Increase Coreg per cardiology Monitor BP and rate response Hope to d/c home tomorrow Subjective Date/time seen: 02/03/23 08:29 Interval history: This is an 87 year old male with a PMH of aortic stenosis, atrial fibrillation, CAD, COPD, depression with anxiety, GERD, prevoius CABG in 1988, HLD, and HTN. 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 He presented to the ED with complaints of fast heart beat at home. On arrival to the ED his EKG showed atrial flutter with RVR, rate 107. With activity his rate increases as high as 130's. He states that when he first presented he had some shortness of breath and mild chest pain. This seems to be resolved since his admission. Initial troponin was normal and BNP elevated at 3470. His chest x-ray was clear. He received diltiazem 5 mg IVP once with favorable results. He was admitted to observation in this setting for further monitoring and medication adjustments. He is seen today and does not appear in acute distress. He states that his symptoms of chest pain and shortness of breath have seemed to have resolved. He does not have any complaints at this time. I discussed with him his coreg dosing. It appears his dose was decreased from 6.25 mg to 3.125 mg, due to low blood pressures. He is unsure of when this decrease was recommended. Today with activity his rate increases to the 130's but he is asymptomatic. Blood pressures are stable, SBP 130's. At rest his rate is irregular but rate ranges from 90s-100's. Review of Systems Review of Systems: All systems reviewed & are unremarkable except as noted in HPI and below Exam Narrative: General: well appearing, well developed, well nourished, appears stated age. HEENT: normocephalic, atraumatic. Mucous membranes moist. EOMI, PERRLA, bilateral sclera anicteric, no conjunctival injection. Neck supple without JVD, lymphadenopathy, or bruit. Respiratory: clear to auscultation bilaterally. No rales/rhonic/wheezes. Cardiovascular: irregular rate and rhythm, normal S1-S2 upon auscultation. + murmur, rubs, or clicks. PMI is nondisplaced, capillary re-fill less than 3 second. Abdomen: Soft, round, no pulsatile masses, non-distended and non-tender. No rebound, no guarding. No CVA tenderness, no hepatosplenomegaly. Bowel sounds present to all four quadra
[2023-02-03 09:05] LABS: Troponin I 16.8 ng/L (0.00-60.4)
[2023-02-03] MEDS: carvediloL 6.25 MG TABLET PO ×2 (09:56→20:23)
[2023-02-03] MEDS: SERTRALINE HCL 50 MG TABLET BY MOUTH (09:57)
[2023-02-03] MEDS: DOCUSATE SODIUM 100 MG CAPSULE PO (09:57)
[2023-02-03] MEDS: TAMSULOSIN HCL 0.4 MG CAPSULE 0.8 MG PO (09:57)
[2023-02-03] MEDS: FOLIC ACID 1 MG TABLET BY MOUTH (09:58)
[2023-02-03] MEDS: POTASSIUM CHLORIDE 20 MEQ ER TABLET PO (09:58)
[2023-02-03] MEDS: APIXABAN 2.5 MG TABLET 5 MG PO ×2 (09:58→20:23)
[2023-02-03] MEDS: ISOSORBIDE MONONITRATE 30 MG TAB.ER.24H PO (09:59)
[2023-02-03] MEDS: ROSUVASTATIN 10 MG TABLET 40 MG BY MOUTH (09:59)
[2023-02-03] MEDS: PANTOPRAZOLE 40 MG TABLET BY MOUTH (10:00)
[2023-02-03] MEDS: FUROSEMIDE 20 MG TABLET BY MOUTH (10:00)
--- NOTE | 2023-02-03 12:00 | ECHO_ITS ---
Patient Info Name: Celestino Rodriguez Age: 87 years : 1935 Gender: Male Ht: 72 in Wt: 202 lbs BSA: 2.17 m2 HR: 110 bpm BP: 134 / 94 mmHg Technical Quality: Fair Exam Date: 02/03/2023 8:41 AM Exam Location: [facility] Patient Status: Inpatient Admit Date: 02/02/2023 Staff Ordering Physician: Kamille Pearson APRN Online Trader: Dileep Ornelas RDCS Attending Provider: Jluis Scott MD Referring Physician: Lili GOMEZ; Exam Type: CA echo doppler color flow Study Info Indications - A-fib Complete two-dimensional, color flow and Doppler transthoracic echocardiogram is performed. Summary 1. Complete two-dimensional, color flow and Doppler transthoracic echocardiogram is performed. 2. Left ventricular chamber dimension is normal. 3. Left ventricular systolic function is preserved, estimated at 50-55%. 4. There is mild concentric increased left ventricular wall thickness. 5. The left ventricular diastolic function is abnormal. 6. E/e' 13 is mildly elevated. 7. Right ventricular systolic function is reduced based on abnormal TAPSE 1.4 cm. 8. Left atrial chamber dimension is mildly enlarged. 9. Right atrial chamber dimension is mildly enlarged. 10. There is moderate aortic valve sclerosis. 11. There is very mild aortic valve stenosis with a peak velocity of 219 cm/s, mean gradient of 10 mmHg, and aortic valve area of 2.2 cm2. 12. There is trace aortic valve regurgitation. 13. The mitral valve has moderately calcified annulus. 14. There is trace mitral valve regurgitation. 15. There is mild tricuspid valve regurgitation. 16. No pulmonary hypertension, estimated pulmonary arterial systolic pressure is 19 mmHg. Left Ventricle E/e' 13 is mildly elevated. Left ventricular systolic function is preserved, estimated at 50-55%. Left ventricular chamber dimension is normal. There is mild concentric increased left ventricular wall thickness. The left ventricular diastolic function is abnormal. Right Ventricle Right ventricular systolic function is reduced based on abnormal TAPSE 1.4 cm. Right ventricular chamber dimension is not well visualized. Left Atria Left atrial chamber dimension is mildly enlarged. Right Atria Right atrial chamber dimension is mildly enlarged. Aortic Valve There is very mild aortic valve stenosis with a peak velocity of 219 cm/s, mean gradient of 10 mmHg, and aortic valve area of 2.2 cm2. The aortic valve is trileaflet. There is moderate aortic valve sclerosis. There is trace aortic valve regurgitation. Pulmonic Valve There is no pulmonic regurgitation. Mitral Valve The mitral valve has moderately calcified annulus. There is no mitral valve stenosis. There is trace mitral valve regurgitation. Tricuspid Valve There is mild tricuspid valve regurgitation. No pulmonary hypertension, estimated pulmonary arterial systolic pressure is 19 mmHg. Pericardium/Pleural There is no pericardial effusion. Inferior Vena Cava Normal inferior vena cava with >50% collapse upon inspiration consistent with normal right atrial pressure, 5 mmHg. Aorta The aortic root size at the sinus of Valsalva is normal. Left Ventricular Outflow Tract Name Value Normal LVOT 2D LVOT Diameter 2.2 cm LVOT Doppler
--- NOTE | 2023-02-03 14:07 | PC.NURSE ---
cont to become tachy with rates up in 140's with exertion. denies cp or sob. hr does come down when he sits and rests. a flutter on monitor. hr 60-100's
--- NOTE | 2023-02-03 15:54 | PC.NURSE ---
Pt sitting up in chair in room upon assessment, son in room visiting. He is A&Ox3, has no c/o c/p or SOB. Noted A-flutter continues on monitor, VSS, call benoit at pt side.
[2023-02-03] MEDS: ACETAMINOPHEN 325 MG TABLET 650 MG PO (20:23)
[2023-02-04] VITALS (8 sets, daily range): BP systolic 102–141; BP diastolic 52–72; PULSE 66–102; RESP 16–18; TEMP 36.2–36.7; O2SAT 98
[2023-02-04 05:40] LABS: Alanine Aminotransferase 26 U/L (16-63); Alkaline Phosphatase 53 U/L (46-116); Anion Gap 7 mmol/L (8-16); Aspartate Amino Transferase 19 U/L (15-37); Bilirubin,Total 0.4 mg/dL (0.00-1.00); Blood Urea Nitrogen 21 mg/dL (7-18); Calcium 8.5 mg/dL (8.5-10.1); Carbon Dioxide 27 mmol/L (21-32); Chloride 106 mmol/L (98-108); Estimated CRCL calculation 45 ml/min; Estimated Glomerular Filt Rate > 60; Glucose 104 mg/dL (70-99); Osmolality Calculated 293 mOsm/kg (285-295); Potassium 4.2 mmol/L (3.5-5.1); Sodium 140 mmol/L (136-145); Total Protein 5.6 g/dL (6.4-8.2)
--- NOTE | 2023-02-04 07:08 | PM.IMPN ---
Progress Note: A&P Assessment and Plan (1) Atrial fibrillation with RVR: Code(s): I48.91 - Unspecified atrial fibrillation Status: Acute Assessment and Plan: EKG on admission shows a-fib rvr, rate 107. On telemetry Trops in the ED 17.8 and repeat 16.8 this morning Received 5 mg diltiazem in the ED with favorable response Will make adjustments to his medications today. His coreg had been decreased at one point. Spoke with cardiology at [facility] and they recommend increasing coreg back to 6.25 mg BID Will make medication adjustment today and monitor his blood pressures in response (2) Hypertension: Qualifiers: Hypertension type: primary hypertension Qualified Code(s): I10 - Essential (primary) hypertension Code(s): I10 - Essential (primary) hypertension Status: Acute Assessment and Plan: On home agents of Coreg, Lasix, and Imdur Restarting home Lasix and Imdur increasing Coreg to 6.25 mg BID Monitor response with heart rate and BP today Blood pressures at this time are stable (3) Depression with anxiety: Code(s): F41.8 - Other specified anxiety disorders Status: Acute Assessment and Plan: Stable on home based assistant sertraline (4) History of quadruple bypass: Code(s): Z95.1 - Presence of aortocoronary bypass graft Status: Acute Assessment and Plan: Stable. Troponin negative x 2 Plan Feeding: heart healthy Analgesia: Tylenol Thromboembolic prophylaxis: Eliquis Ulcer prophylaxis: n/a Glycemic control: n/a Bowel regimen: n/a Lines: PIV Antibiotics: n/a Increase Coreg per cardiology Monitor BP and rate response Check orthostatic vital signs Subjective Date/time seen: 02/04/23 07:08 Interval history: This is an 87 year old male with a PMH of aortic stenosis, atrial fibrillation, CAD, COPD, depression with anxiety, GERD, prevoius CABG in 1988, HLD, and HTN. 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 He presented to the ED with complaints of fast heart beat at home. On arrival to the ED his EKG showed atrial flutter with RVR, rate 107. With activity his rate increases as high as 130's. He states that when he first presented he had some shortness of breath and mild chest pain. This seems to be resolved since his admission. Initial troponin was normal and BNP elevated at 3470. His chest x-ray was clear. He received diltiazem 5 mg IVP once with favorable results. He was admitted to observation in this setting for further monitoring and medication adjustments. He is seen today and does not appear in acute distress. He states that his symptoms of chest pain and shortness of breath have seemed to have resolved. He does not have any complaints at this time. I discussed with him his coreg dosing. It appears his dose was decreased from 6.25 mg to 3.125 mg, due to low blood pressures. He is unsure of when this decrease was recommended. Today with activity his rate increases to the 130's but he is asymptomatic. Blood pressures are stable, SBP 130's. At rest his rate is irregular but rate ranges from 90s-100's. 02/04-Mr Rodriguez had a decent night overall. He does say that he had an episode of dizziness when he got up to go to the bathroom. I suspect it was orthostatic in nature and discussed with him slow position changes. We will see how he does this morning and check orthostatic vitals. Otherwise he has no new complaints. Review of Systems Review of Systems: All systems reviewed & are unremarkable except as noted in HPI and below Exam Narrative: General: well appearing, well developed, well nourished, appears stated age. HEENT: normocephalic, atraumatic. Mucous membranes moist. EOMI, PERRLA, bilateral sclera anicteric, no conjunctival injection. Neck supple without JVD, lymphadenopathy, or bruit. Respiratory: clear to auscultation bilaterally. No rales/rhonic/wheezes. Cardiovascular: irregular rate and r
--- NOTE | 2023-02-04 07:47 | PM.DS ---
DS: Admitting Diagnosis Discharge Date 02/04 Admitting Diagnosis atrial fibrillation DS: Discharge Diagnosis Discharge Diagnosis (1) Atrial fibrillation with RVR: Code(s): I48.91 - Unspecified atrial fibrillation Status: Acute Assessment and Plan: EKG on admission shows a-fib rvr, rate 107. On telemetry Trops in the ED 17.8 and repeat 16.8 this morning Received 5 mg diltiazem in the ED with favorable response Will make adjustments to his medications today. His coreg had been decreased at one point. Spoke with cardiology at [facility] and they recommend increasing coreg back to 6.25 mg BID Will make medication adjustment today and monitor his blood pressures in response (2) Hypertension: Qualifiers: Hypertension type: primary hypertension Qualified Code(s): I10 - Essential (primary) hypertension Code(s): I10 - Essential (primary) hypertension Status: Acute Assessment and Plan: On home agents of Coreg, Lasix, and Imdur Restarting home Lasix and Imdur increasing Coreg to 6.25 mg BID Monitor response with heart rate and BP today Blood pressures at this time are stable (3) Depression with anxiety: Code(s): F41.8 - Other specified anxiety disorders Status: Acute Assessment and Plan: Stable on home attendant sertraline (4) History of quadruple bypass: Code(s): Z95.1 - Presence of aortocoronary bypass graft Status: Acute Assessment and Plan: Stable. Troponin negative x 2 Plan Feeding: heart healthy Analgesia: Tylenol Thromboembolic prophylaxis: Eliquis Ulcer prophylaxis: n/a Glycemic control: n/a Bowel regimen: n/a Lines: PIV Antibiotics: n/a Increase Coreg per cardiology Monitor BP and rate response Check orthostatic vital signs DS: Summary Hospital Course Hospital Course: This is an 87 year old male with a PMH of aortic stenosis, atrial fibrillation, CAD, COPD, depression with anxiety, GERD, prevoius CABG in 1988, HLD, and HTN. 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 He presented to the ED with complaints of fast heart beat at home. On arrival to the ED his EKG showed atrial flutter with RVR, rate 107. With activity his rate increases as high as 130's. He states that when he first presented he had some shortness of breath and mild chest pain. This seems to be resolved since his admission. Initial troponin was normal and BNP elevated at 3470. His chest x-ray was clear.? He received diltiazem 5 mg IVP once with favorable results. He was admitted to observation in this setting for further monitoring and medication adjustments. He is seen today and does not appear in acute distress. He states that his symptoms of chest pain and shortness of breath have seemed to have resolved. He does not have any complaints at this time. I discussed with him his coreg dosing. It appears his dose was decreased from 6.25 mg to 3.125 mg, due to low blood pressures. He is unsure of when this decrease was recommended. Today with activity his rate increases to the 130's but he is asymptomatic. Blood pressures are stable, SBP 130's. At rest his rate is irregular but rate ranges from 90s-100's. 02/04-Mr Rodriguez had a decent night overall. He does say that he had an episode of dizziness when he got up to go to the bathroom. I suspect it was orthostatic in nature and discussed with him slow position changes. We will see how he does this morning and check orthostatic vitals. Otherwise he has no new complaints. Orthostatic vitals were positive for a > 20 mm hg drop from sitting to standing. Will add low dose Florinef to his regimen as he needs the increased Coreg dose for rate control. I spoke with him about this medication and it's desired effects. I asked that he see his PCP by the end of this week for follow and blood pressure check. He is in agreement. Status at Discharge Cognitive/behavioral status at discharge: A&ox4 Time
[2023-02-04] MEDS: ROSUVASTATIN 10 MG TABLET 40 MG BY MOUTH (09:13)
[2023-02-04] MEDS: PANTOPRAZOLE 40 MG TABLET BY MOUTH (09:13)
[2023-02-04] MEDS: POTASSIUM CHLORIDE 20 MEQ ER TABLET PO (09:14)
[2023-02-04] MEDS: SERTRALINE HCL 50 MG TABLET BY MOUTH (09:14)
[2023-02-04] MEDS: carvediloL 6.25 MG TABLET PO (09:14)
[2023-02-04] MEDS: FUROSEMIDE 20 MG TABLET BY MOUTH (09:15)
[2023-02-04] MEDS: ISOSORBIDE MONONITRATE 30 MG TAB.ER.24H PO (09:15)
[2023-02-04] MEDS: TAMSULOSIN HCL 0.4 MG CAPSULE 0.8 MG PO (09:15)
[2023-02-04] MEDS: APIXABAN 2.5 MG TABLET 5 MG PO (09:15)
[2023-02-04] MEDS: FOLIC ACID 1 MG TABLET BY MOUTH (09:16)
[2023-02-04] MEDS: MAGNESIUM HYDROXIDE SUSP 30 ML UDC PO (09:22)
[2023-02-04] MEDS: FLUDROCORTISONE ACETATE 0.1 MG TABLET PO (09:22)
[2023-02-04] MEDS: DOCUSATE SODIUM 100 MG CAPSULE PO (11:10)
--- NOTE | 2023-02-04 12:05 | PC.NURSE ---
2738 discharge instructions went over with patient and son. parameters wnet over for heart rate and bp. when to take coreg and when to not take med. aware of monitoring vs and to take with them to lab work prior to appointment. keep eye on iv site. come back to er if problems arise.
--- NOTE | 2023-02-06 11:29 | PC.NURSE ---
Discharge call back attempted, no answer
--- NOTE | 2023-02-06 11:35 | PC.NURSE ---
Patient returned call, doing well, taking medication as prescribed, knows appointment tomorrow is with Dr Bhatt and it is at 0915 and he has blood work to do in am, no concerns with care, understood instructions well, states does have to be careful when getting up
== END 2023-02-04 11:55 | disposition home or self-care (01) ==
LOC: CHSED 09:39 → CHS2ND 10:21
PROVIDERS: Nurse Practitioner Acute Care; Nurse Practitioner Family; Admitting Provider Internal Medicine; Emergency Provider Emergency Medicine; PCP Family Medicine; Visit Provider Internal Medicine
DX: I48.20 Chronic atrial fibrillation, unspecified (principal); I25.10 Atherosclerotic heart disease of native coronary artery without angina pectoris; I35.0 Nonrheumatic aortic (valve) stenosis; I70.209 Unspecified atherosclerosis of native arteries of extremities, unspecified extremity; I10 Essential (primary) hypertension; I25.2 Old myocardial infarction; J44.9 Chronic obstructive pulmonary disease, unspecified; K21.9 Gastro-esophageal reflux disease without esophagitis; K22.70 Barrett's esophagus without dysplasia; E78.5 Hyperlipidemia, unspecified; M19.90 Unspecified osteoarthritis, unspecified site; R42 Dizziness and giddiness; F32.A Depression, unspecified; F41.9 Anxiety disorder, unspecified; Z23 Encounter for immunization; Z79.01 Long term (current) use of anticoagulants; Z95.5 Presence of coronary angioplasty implant and graft; Z95.1 Presence of aortocoronary bypass graft; Z87.891 Personal history of nicotine dependence
CPT/HCPCS: 36415; 71046; 80048; 80053; 83690; 83880; 84443; 84484; 85025; 85027; 85610; 85730; 90471; 90694; 93005; 93306; 96374; 99285; A9270; G0008; G0378

== ENCOUNTER 2023-02-07 07:54 | Outpatient (CLI) | payer OTHER, MEDICARE, SELFPAY ==
[2023-02-07 08:27] LABS: Anion Gap 8 mmol/L (8-16); Blood Urea Nitrogen 22 mg/dL (7-18); Calcium 8.8 mg/dL (8.5-10.1); Carbon Dioxide 27 mmol/L (21-32); Chloride 103 mmol/L (98-108); Estimated Glomerular Filt Rate > 60; Glucose 106 mg/dL (70-99); Osmolality Calculated 289 mOsm/kg (285-295); Potassium 4.4 mmol/L (3.5-5.1); Sodium 138 mmol/L (136-145)
== END 2023-02-07 07:55 | disposition home or self-care (01) ==
LOC: CHSLAB 07:56
PROVIDERS: PCP Family Medicine; Visit Provider Nurse Practitioner Acute Care
DX: I48.91 Unspecified atrial fibrillation (principal)
CPT/HCPCS: 36415; 80048

== ENCOUNTER 2023-02-19 10:41 | Outpatient (NON) | payer MEDICARE, SELFPAY | END 2023-02-19 10:42 | disposition home or self-care (01) | LOC: CHSLAB 10:42 | PROVIDERS: Visit Provider Family Medicine | DX: N40.0 Benign prostatic hyperplasia without lower urinary tract symptoms (principal) | CPT/HCPCS: 87086 ==

== ENCOUNTER 2023-05-16 06:05 | Emergency (ER) | payer MEDICARE, BC, SELFPAY ==
[2023-05-16] VITALS (34 sets, daily range): BP systolic 124–173; BP diastolic 58–104; PULSE 65–130; RESP 10–32; TEMP 36.6–36.9; O2SAT 94–100
--- NOTE | ~2023-05-16 | XR_ITS ---
EXAMINATION: XR chest 1V portable DATE: 05/16/2023 06:45 INDICATION: Chest pain. Shortness of breath. TECHNIQUE: A single frontal view of the chest was obtained. COMPARISON: Chest 2 views 02/02/2023, CT abdomen and pelvis 11/05/2021 FINDINGS: A calcified left lung nodule is consistent with old granulomatous disease. There is an inte rstitial pattern in the lungs, consistent mild pulmonary edema. There is mild scarring in right mid a nd lower lung zones. No pleural effusion or pneumothorax. Cardiomegaly is noted. Median sternotomy wi res and mediastinal surgical clips are seen, likely from prior coronary artery bypass grafting. IMPRESSION: 1. Mild pulmonary edema. 2. Mild scarring in right mid and lower lung zones. 3. Cardiomegaly. Reviewed, dictated and finalized at location [facility]
--- NOTE | 2023-05-16 06:14 | ECG_ITS ---
Measurements Intervals [place] Rate: 92 P: MS: 0 QRS: 8 QRSD: 146 T: 101 QT: 372 QTc: 462 Interpretive Statements ATRIAL FLUTTER WITH NORMAL VENTRICULAR RESPONSE LEFT BUNDLE BRANCH BLOCK ABNORMAL ECG COMPARED TO ECG 02/02/2023 08:43:25 HEART RATE HAS DECREASED Electronically Signed On 05-16-2023 6:35:52 DRILLING MACHINE OPERATOR by Herman Jaimes D.O.
--- NOTE | 2023-05-16 06:33 | ED.ARRPALP ---
HPI - Arrhythmia/Palpitations General Chief Complaint: Arrhythmia/Palpitations <Angelito Shepard MD - Last Filed: 05/16/23 11:33> Stated Complaint: palpitations <Angelito Shepard MD - Last Filed: 05/16/23 11:33> Time Seen by Provider: 05/16/23 06:19 <Angelito Shepard MD - Last Filed: 05/16/23 11:33> Source: patient <Angelito Shepard MD - Last Filed: 05/16/23 11:33> Mode of arrival: ambulatory <Angelito Shepard MD - Last Filed: 05/16/23 11:33> Limitations: no limitations <Angelito Shepard MD - Last Filed: 05/16/23 11:33> History of Present Illness HPI narrative: this is an 88-year-old male presents to the emergency department from home after he was woken with a rapid heart rate, patient has a history of atrial fibrillation / a flutter with history of coronary artery disease status post a CABG with 4 vessel bypass, with CHF with some history of aortic stenosis with an ejection fraction of 50 to 55%. Patient states that he took his pulse and noticed that he had a rapid heart rate, patient states that he has some chest pressure and shortness of breath no nausea or vomiting no diaphoresis. Patient has a right nose with stuffiness with no fever chills no nausea vomiting no abdominal pain no flank pain no dysuria. <Angelito Shepard MD - Last Filed: 05/16/23 11:33> MD complaint: rapid heart beat <Angelito Shepard MD - Last Filed: 05/16/23 11:33> Onset (ago): hour(s) <Angelito Shepard MD - Last Filed: 05/16/23 11:33> Duration: intermittent <Angelito Shepard MD - Last Filed: 05/16/23 11:33> Severity: moderate <Angelito Shepard MD - Last Filed: 05/16/23 11:33> Context: occurred during rest and awoke with symptoms <Angelito Shepard MD - Last Filed: 05/16/23 11:33> Arrhythmia history: atrial fibrillation <Angelito Shepard MD - Last Filed: 05/16/23 11:33> Associated symptoms: chest pain and shortness of breath <Angelito Shepard MD - Last Filed: 05/16/23 11:33> Related Data Home Medications: Home Medications Medication Instructions Recorded Confirmed potassium chloride 10 mEq 20 meq PO DAILY 05/24/19 05/16/23 tablet,extended release(part/cryst) apixaban 5 mg tablet (Eliquis) 5 mg PO Q12H 11/10/21 05/16/23 isosorbide mononitrate 30 mg 30 mg PO DAILY 12/04/22 05/16/23 tablet,extended release 24 hr albuterol sulfate 90 mcg/actuation See Rx Instructions .Route 02/02/23 05/16/23 aerosol inhaler .COMPLEX PRN sob alprazolam 0.5 mg tablet 0.5 mg PO BID PRN Anxiety 05/16/23 05/16/23 aspirin 81 mg chewable tablet 81 mg PO DAILY 05/16/23 05/16/23 peppermint oil 90 mg 90 mg PO TID 05/16/23 05/16/23 capsule,delayed,extended release (IBgard) <Angelito Shepard MD - Last Filed: 05/16/23 11:33> Allergies/Adverse Reactions: Allergies Allergy/AdvReac Type Severity Reaction Status Date / Time amoxicillin Allergy Intermediate Unknown Verified 03/19/23 10:12 dill oil Allergy Unknown Verified 03/19/23 10:12 Iodine and Iodide Containing AdvReac Intermediate Itching Verified 03/19/23 10:12 Produc ciprofloxacin AdvReac Palpitation Verified 03/19/23 10:12 s Radiographic Dyes/Iodine Allergy Intermediate itching, Uncoded 03/19/23 10:12 weakness of lower limbs <Angelito Shepard MD - Last Filed: 05/16/23 11:33> Review of Systems Review of Systems: All systems reviewed & are unremarkable except as noted in HPI and below <Angelito Shepard MD - Last Filed: 05/16/23 11:33> PMFSH Past Medical History Medical History: Medical History Aortic stenosis Aortic valve disease Atrial fibrillation Sheppard esophagus CAD (coronary artery disease) COPD (chronic obstructive pulmonary disease) Depression with anxiety Femoral artery stenosis GERD (gastroesophageal reflux disease) Heart disease Hematuria Hyperlipidemia Hypertension Hyper
[2023-05-16 06:51] LABS: Basophils Absolute Auto 0.03 K/mm3 (0.00-0.10); Basophils Percent Auto 0.4 % (0.0-1.0); Eosinophils Absolute Auto 0.12 K/mm3 (0.02-0.50); Eosinophils Percent Auto 1.8 % (1.0-6.0); Hemoglobin 11.4 g/dL (12.4-15.3); Immature Granulocyte Absolute 0.02 K/mm3 (0.00-0.00); Immature Granulocyte Percent A 0.3 % (0.0-0.0); Lymphocytes Absolute Auto 1.54 K/mm3 (1.10-4.50); Lymphocytes Percent Auto 22.7 % (18.0-42.0); Mean Corpuscular HGB Conc 30.8 g/dL (32.0-36.0); Mean Corpuscular Hemoglobin 24.2 pg (27.0-31.0); Mean Corpuscular Volume 78.4 fL (78.0-102.0); Monocytes Absolute Auto 0.73 K/mm3 (0.10-0.90); Monocytes Percent Auto 10.8 % (2.0-11.0); Neutrophils Absolute Auto 4.4 K/mm3 (1.7-7.2); Platelet Count Result 170 K/mm3 (150-420); Red Blood Count 4.72 M/mm3 (4.70-6.10); White Blood Count 6.8 K/mm3 (4.8-10.8)
[2023-05-16 06:59] LABS: Appearance Urine Clear (Clear); Blood Urine 1+ (Negative); Color Urine Yellow (Yellow); Glucose Urine UA Negative (Negative); Ketones Urine Negative (Negative); Protein Urine Negative (Negative); Specific Grav Ur >= 1.030 (1.010-1.020); pH Urine 5.5 (5.0-8.0)
[2023-05-16 07:00] LABS: Bilirubin Urine Negative (Negative); Leukocyte Esterase Ur Negative LEU/UL (Negative); Nitrate Urine Negative (Negative); Urobilinogen Urine 0.2 mg/dL (0.2-1.0)
[2023-05-16 07:04] LABS: Add Urine Microscopic? YES; Bacteria Urine Trace /hpf; Mucus Urine Few /lpf; Squamous Epithelial Cell Urine Rare /hpf (Few); WBC Urine None seen /hpf (0-3)
[2023-05-16 07:05] LABS: Partial Thromboplastin Time 27.4 SEC (23.90-30.70); Prothrombin Time 11.4 Seconds (9.50-12.10)
[2023-05-16 07:06] LABS: D Dimer 0.42 mg/L (0.19-0.50)
[2023-05-16 07:11] LABS: Troponin I 15.8 ng/L (0.00-60.4)
[2023-05-16 07:14] LABS: Alanine Aminotransferase 49 U/L (16-63); Albumin Level 3.2 g/dL (3.4-5.0); Alkaline Phosphatase 60 U/L (46-116); Anion Gap 8 mmol/L (8-16); Aspartate Amino Transferase 39 U/L (15-37); Bilirubin,Total 0.4 mg/dL (0.00-1.00); Blood Urea Nitrogen 24 mg/dL (7-18); Calcium 8.1 mg/dL (8.5-10.1); Carbon Dioxide 29 mmol/L (21-32); Chloride 102 mmol/L (98-108); Estimated Glomerular Filt Rate > 60; Glucose 102 mg/dL (70-99); Lipase 32 U/L (16-77); NT Pro B Type Natriuretic Pept 1298 pg/mL (0-450); Osmolality Calculated 292 mOsm/kg (285-295); Sodium 139 mmol/L (136-145); Total Protein 6.6 g/dL (6.4-8.2)
[2023-05-16 07:15] LABS: CRP < 0.1 mg/dL (0.0-0.9)
[2023-05-16 07:27] LABS: Influenza A QL RT-PCR Negative (Negative); Influenza B QL RT-PCR Negative (Negative); RSV RNA, RT-PCR Negative (Negative); SARS-CoV-2 RNA PCR Negative (Negative)
[2023-05-16] MEDS: FUROSEMIDE 20 MG TABLET PO (08:26)
[2023-05-16] MEDS: carvediloL 6.25 MG TABLET PO (08:26)
--- NOTE | 2023-05-16 08:43 | PC.NURSE ---
0700 report from sara dao. resumed care of pt. introduced self to pt. no needs at this time. diet tray ordered. 0800 pt up to bedside chair. waiting for breakfast tray, speaking on the phone. 0830 breakfast tray to pt.
[2023-05-16 10:18] LABS: Troponin I 14.4 ng/L (0.00-60.4)
--- NOTE | 2023-05-16 10:32 | PC.NURSE ---
1000 pt ambulated to bathroom, gait slow and steady. large bowel movement. back to room. call benoit in reach awaiting lab results. 1030 pt speaking on cell phone
--- NOTE | 2023-05-16 10:36 | ECG_ITS ---
Measurements Intervals [place] Rate: 81 P: GA: 0 QRS: -1 QRSD: 135 T: 94 QT: 390 QTc: 455 Interpretive Statements ATRIAL FLUTTER LEFT BUNDLE BRANCH BLOCK BASELINE WANDER- I, II, AVR, AVL ABNORMAL ECG COMPARED TO ECG 05/16/2023 06:18:15 NO SIGNIFICANT CHANGES Electronically Signed On 05-16-2023 12:25:40 CATTLE TESTER by Herman Jaimes D.O.
== END 2023-05-16 10:50 | disposition home or self-care (01) ==
PROVIDERS: Emergency Provider Emergency Medicine; PCP Family Medicine
DX: I48.92 Unspecified atrial flutter (principal); I25.810 Atherosclerosis of coronary artery bypass graft(s) without angina pectoris; I11.0 Hypertensive heart disease with heart failure; I50.9 Heart failure, unspecified; J44.9 Chronic obstructive pulmonary disease, unspecified; I48.91 Unspecified atrial fibrillation; E78.5 Hyperlipidemia, unspecified; I25.2 Old myocardial infarction; Z87.891 Personal history of nicotine dependence; Z20.822 Contact with and (suspected) exposure to COVID-19
CPT/HCPCS: 36415; 71045; 80053; 81001; 83605; 83690; 83880; 84484; 85025; 85380; 85610; 85730; 86140; 87637; 93005; 99284; A9270

== ENCOUNTER 2023-09-26 12:46 | Outpatient (NON) | payer MEDICARE, SELFPAY | END 2023-09-26 12:47 | disposition home or self-care (01) | LOC: CHSLAB 12:49 | PROVIDERS: Visit Provider Family Medicine | DX: R35.0 Frequency of micturition (principal) | CPT/HCPCS: 87086 ==

== ENCOUNTER 2023-12-19 11:54 | Emergency (ER) | payer MEDICARE, BC, SELFPAY ==
[2023-12-19] VITALS (15 sets, daily range): BP systolic 106–133; BP diastolic 51–101; PULSE 71–119; RESP 15–27; TEMP 36.1–37.1; O2SAT 94–99
--- NOTE | 2023-12-19 11:56 | ECG_ITS ---
Test Date: 2023-12-19 12:03:03 Measurements Intervals [place] Rate: 104 P: 0 HI: 0 QRS: 9 QRSD: 134 T: 100 QT: 381 QTc: 502 Interpretive Statements ATRIAL FLUTTER LEFT BUNDLE BRANCH BLOCK ABNORMAL ECG No previous ECG available for comparison Electronically Signed On 12-19-2023 13:01:03 CDT by Angelito Short M.D.
[2023-12-19 12:10] LABS: Basophils Absolute Auto 0.02 K/mm3 (0.00-0.10); Basophils Percent Auto 0.2 % (0.0-1.0); Eosinophils Absolute Auto 0.09 K/mm3 (0.02-0.50); Hematocrit 36.9 % (37.0-46.0); Hemoglobin 11.2 g/dL (12.4-15.3); Immature Granulocyte Absolute 0.03 K/mm3 (0.00-0.00); Immature Granulocyte Percent A 0.3 % (0.0-0.0); Lymphocytes Absolute Auto 1.15 K/mm3 (1.10-4.50); Lymphocytes Percent Auto 13.1 % (18.0-42.0); Mean Corpuscular HGB Conc 30.4 g/dL (32-36); Mean Corpuscular Hemoglobin 22.2 pg (27.0-31.0); Mean Corpuscular Volume 73.1 fL (78.0-102.0); Mean Platelet Volume 10.3 fl (8.7-11.0); Monocytes Absolute Auto 0.87 K/mm3 (0.10-0.90); Monocytes Percent Auto 9.9 % (2.0-11.0); Neutrophils Absolute Auto 6.61 K/mm3 (1.70-7.20); Neutrophils Percent Auto 75.5 % (50.0-70.0); Platelet Count Result 213 K/mm3 (150-420); Red Blood Count 5.05 M/mm3 (4.70-6.10); Red Cell Distribution Width 17.1 % (11.6-14.4); White Blood Count 8.8 K/mm3 (4.8-10.8)
[2023-12-19 12:23] LABS: Prothrombin Time 10.8 Seconds (9.50-12.1)
--- NOTE | 2023-12-19 12:39 | ECG_ITS ---
Test Date: 2023-12-19 12:49:45 Measurements Intervals [place] Rate: 73 P: 0 LA: 0 QRS: -3 QRSD: 139 T: 97 QT: 398 QTc: 440 Interpretive Statements ATRIAL FLUTTER/TACHYCARDIA LEFT BUNDLE BRANCH BLOCK ABNORMAL ECG Compared to ECG 12/19/2023 12:03:03 NO SIGNIFICANT DIFFERENCE Electronically Signed On 12-19-2023 13:01:29 CDT by Angelito Short M.D.
[2023-12-19 12:46] LABS: Alanine Aminotransferase 25 U/L (16-63); Albumin Level 3.7 g/dL (3.4-5.0); Alkaline Phosphatase 69 U/L (46-116); Anion Gap 9 mmol/L (4-12); Aspartate Amino Transferase 21 U/L (15-37); Bilirubin,Total 0.2 mg/dL (0.00-1.00); Blood Urea Nitrogen 29 mg/dL (7-18); Calcium 8.8 mg/dL (8.5-10.1); Carbon Dioxide 24 mmol/L (21-32); Chloride 105 mmol/L (98-108); Estimated CRCL calculation 43 ml/min; Estimated Glomerular Filt Rate 54; Glucose 101 mg/dL (70-99); Osmolality Calculated 291 mOsm/kg (285-295); Potassium 4.6 mmol/L (3.5-5.1); Sodium 138 mmol/L (136-145); Total Protein 7.2 g/dL (6.4-8.2); Troponin I 9.4 ng/L (0.00-60.4)
--- NOTE | 2023-12-19 13:20 | ED.ARRPALP ---
HPI - Arrhythmia/Palpitations General Chief Complaint: Arrhythmia/Palpitations Stated Complaint: A-fib with RVR Time Seen by Provider: 12/19/23 11:56 Source: patient Mode of arrival: ambulatory Limitations: no limitations History of Present Illness HPI narrative: 88 year old male is brought to the Emergency Department from Primary Care Providers office for rapid heart rate (Afib with RVR). Patient denies any chest pain or shortness of breath. States was a little light headed earlier. History of Afib. Has taken his medications today. MD complaint: rapid heart beat Onset (ago): minute(s) Duration: constant Severity: mild Arrhythmia history: atrial fibrillation Associated symptoms: other (mildly light headed) Treatments prior to arrival: other (has taken his home medications) Related Data Home Medications Medication Instructions Recorded Confirmed potassium chloride 10 mEq 10 meq PO DAILY 05/24/19 12/19/23 tablet,extended release(part/cryst) apixaban 5 mg tablet (Eliquis) 5 mg PO Q12H 11/10/21 12/19/23 isosorbide mononitrate 30 mg 120 mg PO DAILY 12/04/22 12/19/23 tablet,extended release 24 hr albuterol sulfate 90 mcg/actuation See Rx Instructions .Route 02/02/23 12/19/23 aerosol inhaler .COMPLEX PRN sob fluticasone propionate 50 1 inh inhalation Q12H 05/26/23 12/19/23 mcg/actuation blister powder for inhalation metoprolol succinate 50 mg 50 mg PO DAILY 12/10/23 12/19/23 tablet,extended release 24 hr carvedilol 6.25 mg tablet 6.25 mg PO DAILY 12/19/23 12/19/23 cefpodoxime 200 mg tablet 200 mg PO BID 12/19/23 12/19/23 polymyxin B sulfate 10,000 1 drp RIGHT EYE 12/19/23 unit-trimethoprim 1 mg/mL eye drops Allergies Allergy/AdvReac Type Severity Reaction Status Date / Time amoxicillin Allergy Intermediate Unknown Verified 12/19/23 11:13 dill oil Allergy Unknown Verified 12/19/23 11:13 Iodine and Iodide Containing AdvReac Intermediate Itching Verified 12/19/23 11:13 Produc ciprofloxacin AdvReac Palpitation Verified 12/19/23 11:13 s Radiographic Dyes/Iodine Allergy Intermediate itching, Uncoded 12/19/23 11:13 weakness of lower limbs Review of Systems Review of Systems: All systems reviewed & are unremarkable except as noted in HPI and below Constitutional: Constitutional: Reports as per HPI, Denies chills, Denies fatigue, Denies fever(s) and Denies weakness Eyes: Eyes: Reports as per HPI ENT: Reports system reviewed and no additional complaints, except as documented Cardiovascular: Cardiovascular: Reports as per HPI, Denies chest pain, Reports rapid heart rate and Denies radiating jaw, neck or arm pain Respiratory: Respiratory: Reports as per HPI, Denies chest congestion and Denies dyspnea Gastrointestinal: Gastrointestinal: Reports as per HPI, Denies abdominal pain, Denies nausea and Denies vomiting Genitourinary: Genitourinary: Reports no additional male genitourinary complaints Musculoskeletal: Musculoskeletal: Reports no additional musculoskeletal complaints, Denies back pain, Denies myalgias and Denies joint swelling Integumentary/Breasts: Skin/Breast: Reports system reviewed and no additional complaints, except as docu Neurologic: Reports system reviewed and no additional complaints, except as documented, Denies confusion, Denies vertigo, Reports dizziness, Denies syncope, Denies headache(s), Denies focal weakness, Denies numbness and Denies weakness PMFSH Past Medical History Medical History Aortic stenosis Aortic valve disease Atrial fibrillation Sheppard esophagus CAD (coronary artery disease) COPD (chronic obstructive pulmonary disease) Depression with anxiety Femoral artery stenosis GERD (gastroesophageal reflux disease) Heart disease Hematuria Hyperlipidemia Hypertension Hypertension Hypertension Low folate Myocardial infarct 1988 Osteoarthritis Overweight Surgical History Surgical Hist
== END 2023-12-19 13:35 | disposition home or self-care (01) ==
PROVIDERS: Emergency Provider Emergency Medicine; PCP Family Medicine
DX: I48.91 Unspecified atrial fibrillation (principal); I25.10 Atherosclerotic heart disease of native coronary artery without angina pectoris; E78.5 Hyperlipidemia, unspecified; I10 Essential (primary) hypertension; J44.9 Chronic obstructive pulmonary disease, unspecified; Z87.891 Personal history of nicotine dependence; Z79.01 Long term (current) use of anticoagulants; Z79.899 Other long term (current) drug therapy
CPT/HCPCS: 36415; 80053; 84484; 85025; 85610; 93005; 99284

== ENCOUNTER 2024-02-12 12:12 | Outpatient (CLI) | payer MEDICARE, BC, SELFPAY ==
--- NOTE | ~2024-02-12 | XR_ITS ---
XR chest 2V 02/12/2024 12:42 Indication: Cough Procedure: 2 view chest Comparison: Comparison to multiple prior studies sequentially, with oldest reviewed study dated 01/16. Findings: Status post median sternotomy for CABG. Cardiomegaly. Mild interstitial edema. Small left p leural effusion. Impression: 1: Cardiomegaly with mild interstitial edema. Reviewed, dictated and finalized at location B. Impression: 1: Cardiomegaly with mild interstitial edema.
[2024-02-12 12:37] LABS: Basophils Absolute Auto 0.04 K/mm3 (0.00-0.10); Basophils Percent Auto 0.5 % (0.0-1.0); Eosinophils Absolute Auto 0.15 K/mm3 (0.02-0.50); Eosinophils Percent Auto 1.7 % (1.0-6.0); Hematocrit 32.2 % (37.0-46.0); Hemoglobin 9.4 g/dL (12.4-15.3); Immature Granulocyte Absolute 0.04 K/mm3 (0.00-0.00); Immature Granulocyte Percent A 0.5 % (0.0-0.0); Lymphocytes Absolute Auto 1.04 K/mm3 (1.10-4.50); Lymphocytes Percent Auto 11.9 % (18.0-42.0); Mean Corpuscular HGB Conc 29.2 g/dL (32-36); Mean Corpuscular Hemoglobin 20.3 pg (27.0-31.0); Mean Corpuscular Volume 69.4 fL (78.0-102.0); Mean Platelet Volume 9.7 fl (8.7-11.0); Monocytes Absolute Auto 1.02 K/mm3 (0.10-0.90); Monocytes Percent Auto 11.7 % (2.0-11.0); Neutrophils Absolute Auto 6.45 K/mm3 (1.70-7.20); Neutrophils Percent Auto 73.7 % (50.0-70.0); Platelet Count Result 249 K/mm3 (150-420); Red Blood Count 4.64 M/mm3 (4.70-6.10); Red Cell Distribution Width 17.6 % (11.6-14.4); White Blood Count 8.7 K/mm3 (4.8-10.8)
[2024-02-12 13:14] LABS: Alanine Aminotransferase 17 U/L (16-63); Albumin Level 3.5 g/dL (3.4-5.0); Alkaline Phosphatase 75 U/L (46-116); Anion Gap 9 mmol/L (4-12); Aspartate Amino Transferase 16 U/L (15-37); Bilirubin,Total 0.6 mg/dL (0.00-1.00); Blood Urea Nitrogen 18 mg/dL (7-18); Calcium 8.9 mg/dL (8.5-10.1); Carbon Dioxide 28 mmol/L (21-32); Chloride 103 mmol/L (98-108); Estimated Glomerular Filt Rate > 60; Glucose 100 mg/dL (70-99); Osmolality Calculated 291 mOsm/kg (285-295); Potassium 4.5 mmol/L (3.5-5.1); Sodium 140 mmol/L (136-145); Total Protein 6.8 g/dL (6.4-8.2)
== END 2024-02-12 12:13 | disposition home or self-care (01) ==
LOC: CHSLAB 12:14
PROVIDERS: PCP Family Medicine; Visit Provider Family Medicine
DX: I10 Essential (primary) hypertension (principal); R05.9 Cough, unspecified; I51.7 Cardiomegaly; J81.1 Chronic pulmonary edema
CPT/HCPCS: 36415; 71046; 80053; 85025

== ENCOUNTER 2024-03-05 10:13 | Emergency (ER) | payer MEDICARE, BC, SELFPAY ==
[2024-03-05] VITALS (23 sets, daily range): BP systolic 108–135; BP diastolic 63–104; PULSE 105–116; RESP 19–32; TEMP 36.3–36.4; O2SAT 89–99
--- NOTE | ~2024-03-05 | CT_ITS ---
EXAMINATION: CT chest abdomen pelvis wo con DATE: 03/05/2024 12:13 INDICATION: Shortness of breath. Leukocytosis. TECHNIQUE: Computed tomography (CT) of the chest, abdomen, and pelvis was performed without intraveno us contrast. Automated exposure control and iterative reconstruction technique were employed. The dos e-length product was 1839.83 mGy-cm. COMPARISON: CT abdomen and pelvis 11/05/2021 FINDINGS: CHEST CT: There are small pleural effusions. There is smooth septal thickening in the lungs. There are groundgl ass opacities in the lungs bilaterally. A calcified left lung nodule and calcified left hilar lymph n odes are consistent with old granulomatous disease. There is an aberrant right subclavian artery. Car diomegaly is noted. There are coronary artery calcifications. There are changes of coronary artery by pass grafting. There are calcifications of the aortic valve. There is mild lumbar spondylosis. There is mild chronic anterior wedging of multiple vertebral bodies. ABDOMEN/PELVIS CT: The liver and spleen are normal. There are changes of cholecystectomy. The pancreas, adrenal glands, and kidneys are normal. There is calcified atherosclerosis of the aorta and many of the other arterie s. There are stents in the abdominal aorta and the right common and external iliac arteries. There ar e embolization coils in right internal iliac artery. There is a Smtih catheter in expected position. There is diverticulosis of the colon without evidence of diverticulitis. The appendix is normal. Ther e is a small sliding hiatal hernia. There are no pathologically enlarged lymph nodes. There is a smal l volume of ascites. Again seen is scarring in right inguinal region. There is severe lumbar spondylo sis. IMPRESSION: 1. Mild pulmonary edema. 2. Small pleural effusions. 3. Small volume of ascites. Reviewed, dictated and finalized at location A. 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
--- NOTE | ~2024-03-05 | XR_ITS ---
XR chest 1V portable 03/05/2024 10:58 Indication: Weakness. Procedure: AP portable chest Comparison: Comparison to multiple prior studies sequentially, with oldest reviewed study dated 09/10. Findings: Cardiomegaly. Status post median sternotomy for CABG. Small pleural effusions. No acute oss eous abnormality. There are possible healed left rib fractures. Mild interstitial edema. Impression: 1: Cardiomegaly with mild interstitial edema. Reviewed, dictated and finalized at location B. ONAL LOAN SPECIALIST Impression: 1: Cardiomegaly with mild interstitial edema.
--- NOTE | 2024-03-05 10:35 | ED.AMS ---
HPI - Altered Mental Status General Chief Complaint: Altered Mental Status Stated Complaint: ALTERED MENTAL STATUS Source: EMS Mode of arrival: EMS Related Data Home Medications Medication Instructions Recorded Confirmed potassium chloride 10 mEq 10 meq PO DAILY 05/24/19 02/26/24 tablet,extended release(part/cryst) apixaban 5 mg tablet (Eliquis) 5 mg PO Q12H 11/10/21 02/26/24 isosorbide mononitrate 30 mg 120 mg PO DAILY 12/04/22 02/26/24 tablet,extended release 24 hr fluticasone propionate 50 1 inh inhalation Q12H 05/26/23 02/26/24 mcg/actuation blister powder for inhalation Allergies Allergy/AdvReac Type Severity Reaction Status Date / Time amoxicillin Allergy Intermediate Unknown Verified 03/02/24 07:54 dill oil Allergy Unknown Verified 03/02/24 07:54 Iodine and Iodide Containing AdvReac Intermediate Itching Verified 03/02/24 07:54 Produc ciprofloxacin AdvReac Palpitation Verified 03/02/24 07:54 s Radiographic Dyes/Iodine Allergy Intermediate itching, Uncoded 02/26/24 08:15 weakness of lower limbs PMFSH Past Medical History Medical History Aortic stenosis Aortic valve disease Atrial fibrillation Sheppard esophagus CAD (coronary artery disease) COPD (chronic obstructive pulmonary disease) Depression with anxiety Femoral artery stenosis GERD (gastroesophageal reflux disease) Heart disease Hematuria Hyperlipidemia Hypertension Hypertension Hypertension Low folate Myocardial infarct 1988 Osteoarthritis Overweight Surgical History Surgical History H/O heart artery stent History of cardiac cath History of cholecystectomy History of quadruple bypass Hx of cholecystectomy S/P CABG x 4 Family History Family History Mother , Age 80 Heart disease Father , Age 85. Cause of Pneumonia. No problems noted. Mother , Age 80 Family history of coronary artery disease . Father , Age 85. Cause of Pneumonia. No problems noted. Social History Social History Social History: The patient lives alone . He has 4 children. He is . He is Retired from the [employer]. His son Herrera is the poa. The patient is a former smoker does not use any alcohol marijuana or illicit drugs. Code status full code Smoking packs per day: 1 Smoking cigarettes per day: 20.0 Years smoked: 30 Smoking pack-years: 30.00 Smoking status: Former smoker Tobacco type: cigarettes Second hand tobacco smoke exposure: No Additional smoking assessment comments: Quit 1988 Alcohol intake: never Drinks per week: 1 Substance use: never Substance use type: does not use Lack of Transportation: No Lack of Food: Never True Current Housing: I Have Housing Concerned About Future Housing: No Difficulty Paying Gas/Electric Bills: No Difficulty Paying for Meds: No Currently Unemployed: No Education: Decline to Answer Difficulty w/ Childcare or Family Care: No Living arrangements: alone Additional living arrangements comments: . 4 Adult Children. 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 Gender identity (if verbalized by the patient): Male Spiritual care concerns: No Agree to blood products: Yes Course Vital Signs Vital signs: Vital Signs Temperature 36.4 C 03/05/24 10:13 Pulse Rate 115 H 03/05/24 10:13 Respiratory Rate 32 H 03/05/24 10:13 Blood Pressure 131/104 H 03/05/24 10:13 Pulse Oximetry 98 03/05/24 10:13 Oxygen Delivery Room Air 03/05/24 10:13 Temperature 36.3 C L 03/05/24 14:36 Pulse Rate 110 H 03/05/24 14:36 Respiratory Rate 20 03/05/24 14:36 Blood Pressure 111/73 03/05/24 14:36 Pulse Oximetry 92 03/05/24 14:36 Oxygen Delivery Room Air 03/05/24 14:36 MDM - Altered Mental Status MDM Narrative Medical decision making narrative: PATIENT CAME TO THE ED WITH GENERAL WEAKNESS, DECREASED LEVEL OF MENTAL STATUS VITAL SIGNS SHOWING BLOOD PRESSURE 131/104, HEART RATE 115 IRREGULAR IRREGULARITY PHYSICAL EXAMINATION SHOWING DEBILITATING PATIENT, ORIENTED TO HIS NAME ONLY DENYING ANY SYMPTOMS DIFFERENTIAL DIAGNOSIS SEPSIS, DEHYDRATION, ELECTROLYTE IMBALANCE, URINARY TRACT INFECTION, PNEUMONIA BLOOD WORKUP TODAY SHOWED WBC OF 24.6, HEMOGLOBIN 10.3, CREATININE 2.7, LACTIC ACID 7.5, TOTAL BILIRUBIN 2.6, AST MORE THAN 796, ALT MORE THAN 1000, ALKALINE PHOSPHATASE IS 192, C-REACTIVE PROTEIN 3.6, BNP 72200 DIAGNOSIS SEPSIS, CHF, ELEVATED LIVER ENZYMES, ELIER, DNR PATIENT'S FAMILY REQUESTED TRANSFERRED TO [facility] DR. LOPEZ, HOSPITALIST AT [employer] ACCEPTED PATIENT TRANSFER Differential Diagnosis Differential diagnosis: Likely other ( ABOVE) Medical Records Attestation: I reviewed the patient's medical records. Lab Data Attestation: I reviewed the patient's lab results. 03/05/24 10:54 03/05/24 10:54 Labs: Lab Results 03/05/24 03/05/24 03/05/24 Range/Units 10:54 11:15 11:31 WBC 24.6 H* (4.8-10.8) K/mm3 RBC 5.20 (4.70-6.10) M/mm3 Hgb 10.3 L (12.4-15.3) g/dL Hct 34.3 L (37.0-46.0) % MCV 66.0 L (78.0-102.0) fL MCH 19.8 L (27.0-31.0) pg MCHC 30.0 L (32-36) g/dL RDW 19.2 H (11.6-14.4) % Plt Count 300 (150-420) K/mm3 MPV 11.2 H (8.7-11.0) fl Immature Gran % (Auto) Not Reportable Neut % (Auto) Not Reportable Lymph % (Auto) Not Reportable [place] % (Auto) Not Reportable Eos % (Auto) Not Reportable Baso % (Auto) Not Reportable Lymph # (Auto) Not Reportable [place] # (Auto) Not Reportable Eos # (Auto) Not Reportable Baso # (Auto) Not Reportable Abs Immat Gran (auto) Not Reportable Absolute Neuts (auto) Not Reportable Absolute Nucleated RBC Not Reportable Total Counted 100 Neutrophils % (Manual) 87 H (46-73) % Band Neutrophils % 0 (0-6) % Lymphocytes % (Manual) 3 L (18-44) % Monocytes % (Manual) 10 H (3-9) % Eosinophils % (Manual) 0 L (1-6) % Basophils % (Manual) 0 (0-1) % Nucleated RBC % Not Reportable Abs Neuts (Manual) 21.40 H (1.3-6.7) K/mm3 Abs Lymphs (Manual) 0.73 L (1.1-4.5) K/mm3 Abs Monocytes (Manual) 2.46 H (0.1-0.90) K/mm3 Absolute Eos (Manual) 0.00 L (0.02-0.50) K/mm3 Abs Basophils (Manual) 0.00 (0-0.1) K/mm3 Platelet Estimate Adequate (Adequate) % Immature Plt Fraction 5.9 (1.0-7.0) % Schistocytes Not Reportable PT 19.7 H (9.50-12.1) Seconds INR 1.9 APTT 28.0 (23.9-30.70) Sec Sodium 141 (136-145) mmol/L Potassium 5.0 (3.5-5.1) mmol/L Chloride 102 (98-108) mmol/L Carbon Dioxide 16 L (21-32) mmol/L Anion Gap 23 H (4-12) mmol/L BUN 84 H (7-18) mg/dL Creatinine 2.77 H (0.70-1.30) mg/dL Estim Creat Clear Calc Not Reportable Estimated GFR 22 L (59 - ) Glucose 136 H (70-99) mg/dL Calculated Osmolality 319 H (285-295) mOsm/kg Lactic Acid 7.5 H (0.4-2.0) mmol/L Calcium 9.2 (8.5-10.1) mg/dL Total Bilirubin 2.6 H (0.00-1.00) mg/dL AST > 796 H (15-37) U/L ALT > 1000 H (16-63) U/L Alkaline Phosphatase 192 H (46-116) U/L C-Reactive Protein 3.6 H (0.0-0.9) mg/dL NT-Pro-B Natriuret Pep > 37996 H (0-450) pg/mL Total Protein 7.0 (6.4-8.2) g/dL Albumin 3.5 (3.4-5.0) g/dL Urine Color Dark yellow (Yellow) Urine Appearance Clear (Clear) Urine pH 5.5 (5.0-8.0) Ur Specific [place] >= 1.030 H (1.010-1.020) Urine Protein 2+ H (Negative) Urine Glucose (UA) Negative (Negative) Urine Ketones Trace H (Negative) Ur Blood (Man) 3+ H (Negative) Urine Nitrate Negative (Negative) Urine Bilirubin 1+ H (Negative) Urine Urobilinogen 1.0 (0.2-1.0) mg/dL Leukocyte Esterase Rfl Negative (Negative) BETTY/UL Urine RBC 6-10 H (0-2) /hpf Urine WBC 0-3 (0-3) /hpf Ur Squamous Epith Cells Few (Few) /hpf Urine Bacteria Trace (None) /hpf Granular Casts 3-4 H (None) /lpf Influenza A (RT-PCR) (Negative) Influenza B (RT-PCR) (Negative) RSV (RT-PCR) (Negative) SARS-CoV-2 RNA (RT-PCR) (Negative) 03/05/24 03/05/24 Range/Units 12:15 14:07 WBC (4.8-10.8) K/mm3 RBC (4.70-6.10) M/mm3 Hgb (12.4-15.3) g/dL Hct (37.0-46.0) % MCV (78.0-102.0) fL MCH (27.0-31.0) pg MCHC (32-36) g/dL RDW (11.6-14.4) % Plt Count (150-420) K/mm3 MPV (8.7-11.0) fl Immature Gran % (Auto) Neut % (Auto) Lymph % (Auto) [place] % (Auto) Eos % (Auto) Baso % (Auto) Lymph # (Auto) [place] # (Auto) Eos # (Auto) Baso # (Auto) Abs Immat Gran (auto) Absolute Neuts (auto) Absolute Nucleated RBC Total Counted Neutrophils % (Manual) (46-73) % Band Neutrophils % (0-6) % Lymphocytes % (Manual) (18-44) % Monocytes % (Manual) (3-9) % Eosinophils % (Manual) (1-6) % Basophils % (Manual) (0-1) % Nucleated RBC % Abs Neuts (Manual) (1.3-6.7) K/mm3 Abs Lymphs (Manual) (1.1-4.5) K/mm3 Abs Monocytes (Manual) (0.1-0.90) K/mm3 Absolute Eos (Manual) (0.02-0.50) K/mm3 Abs Basophils (Manual) (0-0.1) K/mm3 Platelet Estimate (Adequate) % Immature Plt Fraction (1.0-7.0) % Schistocytes PT (9.50-12.1) Seconds INR APTT (23.9-30.70) Sec Sodium (136-145) mmol/L Potassium (3.5-5.1) mmol/L Chloride (98-108) mmol/L Carbon Dioxide (21-32) mmol/L Anion Gap (4-12) mmol/L BUN (7-18) mg/dL Creatinine (0.70-1.30) mg/dL Estim Creat Clear Calc Estimated GFR (59 - ) Glucose (70-99) mg/dL Calculated Osmolality (285-295) mOsm/kg Lactic Acid 6.6 H (0.4-2.0) mmol/L Calcium (8.5-10.1) mg/dL Total Bilirubin (0.00-1.00) mg/dL AST (15-37) U/L ALT (16-63) U/L Alkaline Phosphatase (46-116) U/L C-Reactive Protein (0.0-0.9) mg/dL NT-Pro-B Natriuret Pep (0-450) pg/mL Total Protein (6.4-8.2) g/dL Albumin (3.4-5.0) g/dL Urine Color (Yellow) Urine Appearance (Clear) Urine pH (5.0-8.0) Ur Specific [place] (1.010-1.020) Urine Protein (Negative) Urine Glucose (UA) (Negative) Urine Ketones (Negative) Ur Blood (Man) (Negative) Urine Nitrate (Negative) Urine Bilirubin (Negative) Urine Urobilinogen (0.2-1.0) mg/dL Leukocyte Esterase Rfl (Negative) BETTY/UL Urine RBC (0-2) /hpf Urine WBC (0-3) /hpf Ur Squamous Epith Cells (Few) /hpf Urine Bacteria (None) /hpf Granular Casts (None) /lpf Influenza A (RT-PCR) Negative (Negative) Influenza B (RT-PCR) Negative (Negative) RSV (RT-PCR) Negative (Negative) SARS-CoV-2 RNA (RT-PCR) Negative (Negative) ABG Data ABG results: 03/05/24 11:31 Puncture Site Right radial ABG pH 7.42 ABG pCO2 16.9 L* ABG pO2 92.4 H ABG PO2/FiO2 Ratio Not Reportable ABG HCO3 10.7 L ABG O2 Saturation 96.2 ABG O2 Content 14.6 L ABG Base Excess -11.6 L A-a Gradient Not Reportable Oxyhemoglobin 95.3 O2 Delivery Device Room air O2 Liters/Min 0.0 Imaging Data My impression: Impressions Chest X-Ray 03/05/24 11:09 Impression: 1: Cardiomegaly with mild interstitial edema. Chest/Abdomen/Pelvis CT 03/05/24 12:26 IMPRESSION: 1. Mild pulmonary edema. 2. Small pleural effusions. 3. Small volume of ascites. Radiologist's impression: Impressions Chest X-Ray 03/05/24 11:09 Impression: 1: Cardiomegaly with mild interstitial edema. ECG Data EKG #1: Attestation: I personally reviewed and interpreted this ECG as follows: ECG completion date: 03/05/24 Interpretation: ATRIAL FLUTTER AT 116 BEATS PER MINUTE, LEFT BUNDLE BRANCH BLOCK, ABNORMAL EKG, COMPARED TO EKG ON DECEMBER 19, 2023 HEART RATE HAS INCREASED. Critical Care Time Critical Care Time Critical Care Time: Yes Total Critical Care Time: 30 Discharge Plan Discharge Clinical Impression: ELIER (acute kidney injury), Elevated liver enzymes, Sepsis, CHF (congestive heart failure), Atrial flutter with rapid ventricular response Patient Disposition: Acute Care Hospital Condition: Guarded Prognosis Additional Instructions: TRANSFERRED TO [facility] Prescriptions: No Action potassium chloride 10 mEq tablet,ER particles/crystals 10 meq PO DAILY fluticasone propionate 50 mcg/actuation blister with device 1 inh inhalation Q12H isosorbide mononitrate 30 mg tablet extended release 24 hr 120 mg PO DAILY albuterol sulfate 90 mcg/actuation HFA aerosol inhaler 1 inh inhalation Q4H Qty: 8.5 0RF metoprolol succinate 50 mg tablet extended release 24 hr 50 mg PO BID Qty: 60 0RF Eliquis 5 mg tablet 5 mg PO Q12H famotidine 40 mg tablet See Rx Instructions .ROUTE .COMPLEX Qty: 90 0RF Dose Instruction: TAKE ONE TABLET BY MOUTH DAILY Rx Instructions: TAKE ONE TABLET BY MOUTH DAILY rosuvastatin 40 mg tablet See Rx Instructions .ROUTE .COMPLEX Qty: 90 0RF Dose Instruction: TAKE ONE TABLET BY MOUTH DAILY Rx Instructions: TAKE ONE TABLET BY MOUTH DAILY furosemide 20 mg tablet See Rx Instructions .ROUTE .COMPLEX Qty: 90 0RF Dose Instruction: TAKE ONE TABLET BY MOUTH DAILY Rx Instructions: TAKE ONE TABLET BY MOUTH DAILY sertraline 100 mg tablet See Rx Instructions .ROUTE .COMPLEX Qty: 28 0RF Dose Instruction: TAKE ONE TABLET BY MOUTH DAILY Rx Instructions: TAKE ONE TABLET BY MOUTH DAILY tamsulosin 0.4 mg capsule See Rx Instructions .ROUTE .COMPLEX Qty: 180 0RF Dose Instruction: TAKE TWO CAPSULES BY MOUTH EVERY MORNING Rx Instructions: TAKE TWO CAPSULES BY MOUTH EVERY MORNING azelastine 137 mcg (0.1 %) spray,non-aerosol See Rx Instructions .ROUTE .COMPLEX Qty: 30 0RF Dose Instruction: USE TWO SPRAYS IN EACH NOSTRIL EVERY TWELVE HOURS Rx Instructions: USE TWO SPRAYS IN EACH NOSTRIL EVERY TWELVE HOURS Follow-up/Referrals: UNKNOWN,DOCTOR [Primary Care Provider] -
--- NOTE | 2024-03-05 10:46 | PC.NURSE ---
PLACED CALL TO SONZULEIKA, AWAITING HIS ARRIVAL.
[2024-03-05 11:02] LABS: Hematocrit 34.3 % (37.0-46.0); Hemoglobin 10.3 g/dL (12.4-15.3); Immature Platelet Fraction Pct 5.9 % (1.0-7.0); Mean Corpuscular Hemoglobin 19.8 pg (27.0-31.0); Mean Platelet Volume 11.2 fl (8.7-11.0); Platelet Count Result 300 K/mm3 (150-420); Red Cell Distribution Width 19.2 % (11.6-14.4)
[2024-03-05 11:09] LABS: White Blood Count 24.6 K/mm3 (4.8-10.8)
[2024-03-05 11:15] LABS: INR 1.9; Prothrombin Time 19.7 Seconds (9.50-12.1)
--- NOTE | 2024-03-05 11:16 | ECG_ITS ---
Test Date: 2024-03-05 11:52:36 Measurements Intervals [place] Rate: 116 P: 144 VA: 132 QRS: 88 QRSD: 134 T: 258 QT: 382 QTc: 531 Interpretive Statements ATRIAL FLUTTER/TACHYCARDIA WITH RAPID VENTRICULAR RESPONSE LEFT BUNDLE BRANCH BLOCK BASELINE WANDER- I, II, III, AVR, AVL ,AVF, V1 ABNORMAL ECG Compared to ECG 12/19/2023 12:49:45 HEART RATE HAS INCREASED Electronically Signed On 03-05-2024 12:01:13 BLOCKER POLISHING by Herman Jaimes D.O.
[2024-03-05 11:20] LABS: Lactic Acid Reflex 7.5 mmol/L (0.4-2.0)
[2024-03-05 11:29] LABS: Band Neutrophils Percent 0 % (0-6); Basophils Percent Manual 0 % (0-1); Eosinophils Percent Manual 0 % (1-6); Lymphocytes Absolute Manual 0.73 K/mm3 (1.1-4.5); Lymphocytes Percent Manual 3 % (18-44); Monocytes Absolute Manual 2.46 K/mm3 (0.1-0.90); Monocytes Percent Manual 10 % (3-9); Neutrophils Percent Manual 87 % (46-73); Platelet Estimate Adequate (Adequate); Total Cells Counted 100
[2024-03-05 11:32] LABS: Albumin Level 3.5 g/dL (3.4-5.0); Anion Gap 23 mmol/L (4-12); Bilirubin,Total 2.6 mg/dL (0.00-1.00); Blood Urea Nitrogen 84 mg/dL (7-18); CRP 3.6 mg/dL (0.0-0.9); Calcium 9.2 mg/dL (8.5-10.1); Carbon Dioxide 16 mmol/L (21-32); Chloride 102 mmol/L (98-108); Estimated Glomerular Filt Rate 22; Glucose 136 mg/dL (70-99); Osmolality Calculated 319 mOsm/kg (285-295); Sodium 141 mmol/L (136-145)
[2024-03-05 11:33] LABS: Alkaline Phosphatase 192 U/L (46-116)
[2024-03-05 11:37] LABS: Add Urine Microscopic? YES; Appearance Urine Clear (Clear); Base Excess ABG -11.6 mmol/L (0-2); Bilirubin Urine 1+ (Negative); Blood Urine 3+ (Negative); Color Urine Dark Yellow (Yellow); Glucose Urine UA Negative (Negative); HCO3 ABG 10.7 mmol/L (23-29); Ketones Urine Trace (Negative); Leukocyte Esterase Ur Negative LEU/UL (Negative); Nitrate Urine Negative (Negative); Oxygen Content ABG 14.6 %vol (16.0-22.0); Oxygen Saturation ABG 96.2 % (95-97); Oxyhemoglobin 95.3 % (94-100); PO2 ABG 92.4 mmHg (75-85); Protein Urine 2+ (Negative); Specific Grav Ur >= 1.030 (1.010-1.020); pH ABG 7.42 (7.35-7.45); pH Urine 5.5 (5.0-8.0)
[2024-03-05 11:41] LABS: NT Pro B Type Natriuretic Pept > 35000 pg/mL (0-450)
[2024-03-05 11:44] LABS: Device ROOM AIR; Modified Allen's Test Pass; PCO2 ABG 16.9 mmHg (35-45); Site Drawn RIGHT RADIAL
[2024-03-05 11:54] LABS: Alanine Aminotransferase > 1000 U/L (16-63); Aspartate Amino Transferase > 796 U/L (15-37)
--- NOTE | 2024-03-05 11:58 | PC.NURSE ---
FAMILY HERE AND IN ROOM,
[2024-03-05 12:13] LABS: Squamous Epithelial Cell Urine Few /hpf (Few); WBC Urine 0-3 /hpf (0-3)
[2024-03-05 12:14] LABS: Bacteria Urine Trace /hpf
[2024-03-05] MEDS: levoFLOXacin 750 MG/D5W 150 ML 750 MG/150 ML BAG 100 MG IVPB (12:19)
[2024-03-05] MEDS: SODIUM CHLORIDE 0.9% IV 1,000 ML 100 ML IV CONT (12:19)
[2024-03-05] MEDS: CEFEPIME 2 GM/NS 50 ML 2 GM/50 ML BAG IVPB (12:26)
[2024-03-05] MEDS: VANCOMYCIN 1,500 MG/NS 500 ML 1,500 MG/500 ML BAG 250 MG IVPB (12:41)
[2024-03-05] MEDS: ONDANSETRON INJ 4 MG/2 ML VIAL IV PUSH (12:49)
[2024-03-05] MEDS: MORPHINE SULFATE (*CRX) 2 MG/ML INJ IV PUSH (12:49)
--- NOTE | 2024-03-05 13:05 | PC.NURSE ---
family requested to transfer to [facility]. facesheet faxed to [facility] per request .
[2024-03-05 13:24] LABS: SARS-CoV-2 RNA PCR Negative (Negative)
[2024-03-05 13:28] LABS: Influenza A QL RT-PCR Negative (Negative); Influenza B QL RT-PCR Negative (Negative); RSV RNA, RT-PCR Negative (Negative)
--- NOTE | 2024-03-05 13:32 | PC.NURSE ---
dr bowen in speaking with family regarding transfer.
[2024-03-05 13:57] LABS: Reflex Lactic Acid Yes or No Add Lactic
[2024-03-05 14:36] LABS: Lactic Acid 6.6 mmol/L (0.4-2.0)
--- NOTE | 2024-03-05 15:00 | PC.NURSE ---
pt assisted to ems cot with rn and 2 ems staff. pt answering questions and thankful for care given.
--- NOTE | 2024-03-07 15:37 | PC.NURSE ---
PRELIMINARY BLOOD CULTURE REPORT: NO GROWTH TO DATE.
--- NOTE | 2024-03-11 13:00 | PC.NURSE ---
FINAL BLOOD CULTURE NO GROWTH AFTER 5 DAYS
== END 2024-03-05 15:05 | disposition short-term general hospital (02) ==
PROVIDERS: Emergency Provider Emergency Medicine
DX: N17.9 Acute kidney failure, unspecified (principal); R74.01 Elevation of levels of liver transaminase levels; I11.0 Hypertensive heart disease with heart failure; I50.9 Heart failure, unspecified; I48.92 Unspecified atrial flutter; I25.10 Atherosclerotic heart disease of native coronary artery without angina pectoris; J44.9 Chronic obstructive pulmonary disease, unspecified; I48.91 Unspecified atrial fibrillation; E78.5 Hyperlipidemia, unspecified; I25.2 Old myocardial infarction; Z87.891 Personal history of nicotine dependence; Z20.822 Contact with and (suspected) exposure to COVID-19
CPT/HCPCS: 36415; 36600; 71045; 71250; 74176; 80053; 81001; 82805; 83605; 83880; 85018; 85025; 85055; 85610; 85730; 86140; 87040; 87637; 93005; 96365; 96366; 96367; 96375; 99285; J0692; J1956; J2270; J2405; J3370; J7030